=== PATIENT | male | born 1935 | race Caucasian/White ===

== ENCOUNTER 2017-11-28 14:42 | Inpatient (IN) | payer MEDICARE, MEDICAID ==
[2017-11-28] MEDS ORDERED: DILTIAZEM HCL/D5W 125 MG/125 ML RTUINJ IV PRN (14:51)
[2017-11-28] MEDS ORDERED: ASPIRIN 325 MG TABLET PO ONE (14:52)
[2017-11-28] MEDS ORDERED: DILTIAZEM HCL INJ 25 MG/5 ML VIAL IV ONE (15:02)
[2017-11-28 15:12] LABS: ABSOLUTE BASOPHILS # (AUTO) 0.1 10^3/uL (0.0-0.2); ABSOLUTE EOSINOPHILS # (AUTO) 0.3 10^3/uL (0.0-0.6); ABSOLUTE LYMPHOCYTES (AUTO) 2.3 10^3/uL (0.5-4.7); ABSOLUTE MONOCYTES (AUTO) 1.1 10^3/uL (0.1-1.4); ABSOLUTE NEUT (AUTO) 5.8 10^3/uL (1.7-8.2); BASOPHILS % (AUTO) 0.7 % (0-2); EOSINOPHILS % (AUTO) 3.2 % (0-6); HEMOGLOBIN 15.5 g/dL (13.5-17.0); MEAN CORPUSCULAR HEMOGLOBIN 32.8 pg (27.0-33.4); MEAN CORPUSCULAR HGB CONC 33.7 g/dL (32.0-36.0); MEAN CORPUSCULAR VOLUME 97 fl (80-97); MONOCYTES % (AUTO) 11.7 % (3-13); PLATELET COUNT 237 10^3/uL (150-450); RED BLOOD COUNT 4.72 10^6/uL (4.35-5.55); RED CELL DISTRIBUTION WIDTH 13.6 % (11.5-14.0); SEGMENTED NEUTROPHILS % (AUTO) 60.4 % (42-78); TOTAL CELLS COUNTED % (AUTO) 100 %; WHITE BLOOD COUNT 9.7 10^3/uL (4.0-10.5)
[2017-11-28 15:28] LABS: ALANINE AMINOTRANSFERASE 46 U/L (21-72); ALBUMIN 4.3 g/dL (3.5-5.0); ALKALINE PHOSPHATASE 72 U/L (38-126); ANION GAP 13 (5-19); ASPARTATE AMINO TRANSFERASE 42 U/L (17-59); BILIRUBIN,DIRECT 0.2 mg/dL (0.0-0.4); BILIRUBIN,TOTAL 0.3 mg/dL (0.2-1.3); BLOOD UREA NITROGEN 27 mg/dL (7-20); CALCIUM 9.4 mg/dL (8.4-10.2); CARBON DIOXIDE 29 mmol/L (22-30); CHLORIDE 103 mmol/L (98-107); CREATINE KINASE 147 U/L (55-170); GLUCOSE 155 mg/dL (75-110); LIPASE 105.9 U/L (23-300); POTASSIUM 4.7 mmol/L (3.6-5.0); SODIUM 144.6 mmol/L (137-145); TOTAL PROTEIN 6.9 g/dL (6.3-8.2)
[2017-11-28 15:44] LABS: CREATINE KINASE MB 3.01 ng/mL (<4.55); TROPONIN I 0.024 ng/mL
--- NOTE | 2017-11-28 15:48 | RADIOLOGY REPORT (SQ) ---
EXAM DESCRIPTION: CHEST SINGLE VIEW COMPLETED DATE/TIME: 11/28/2017 3:38 pm REASON FOR STUDY: cp COMPARISON: Chest film 11/17/2006 EXAM PARAMETERS: NUMBER OF VIEWS: One view. TECHNIQUE: Single frontal radiographic view of the chest acquired. RADIATION DOSE: NA LIMITATIONS: None. FINDINGS: LUNGS AND PLEURA: No opacities, masses or pneumothorax. No pleural effusion. MEDIASTINUM AND HILAR STRUCTURES: No masses. Contour normal. HEART AND VASCULAR STRUCTURES: Heart normal in size. Normal vasculature. BONES: No acute findings. HARDWARE: None in the chest. OTHER: No other significant finding. IMPRESSION: NO ACUTE RADIOGRAPHIC FINDING IN THE CHEST. TECHNICAL DOCUMENTATION: JOB ID: [id number] [employer]- All Rights Reserved Reading location - IP/workstation name: [email or web address]
[2017-11-28 16:20] LABS: PARTIAL THROMBOPLASTIN TIME 33.6 SEC (23.5-35.8); PROTHROMBIN TIME 12.6 SEC (11.4-15.4)
[2017-11-28] MEDS ORDERED: MAG HYDROX/AL HYDROX/SIMETH SUSP 30 ML UDCUP PO PRN (17:09)
[2017-11-28] MEDS ORDERED: METOPROLOL TARTRATE PF/INJ 5 MG/5 ML SDV IV PRN (17:09)
--- NOTE | 2017-11-28 17:57 | EKG REPORT ---
SEVERITY:- ABNORMAL ECG - ATRIAL FIBRILLATION WITH RVR PROBABLE INFERIOR INFARCT, AGE INDETERMINATE BORDERLINE PROLONGED QT INTERVAL : Confirmed by: Kevin Doherty MD 28-Nov-2017 17:56:42
--- NOTE | 2017-11-28 18:23 | PDOC H&P ---
History of Present Illness Admission Date/PCP: 11/28/17 17:51 ENMANUEL HYLTON Patient complains of: Palpitations History of Present Illness: PREETI MELENDREZ is a 82 year old male with an unclear past medical history including coronary artery disease with 3 stents, BPH, hypertension, dyslipidemia , diabetes and poor historian. Patient presents after feeling generally unwell with palpitations 2 hours prior to presentation while shopping at [employer]. His heart rate was found to be in the 150s and referred to the emergency room for evaluation. Patient denies shortness of breath, chest pain, nausea or vomiting. He admits previous episode approximately 4 months ago where he was transferred to [facility], and discharged with diagnosis unknown to the patient. His new medication included aspirin. Patient denies recent change in medications, running out or missing dose he denies excessive alcohol or caffeine, he denies heat or cold intolerance but complains of poor sleep and persistent fatigu. In the emergency room he is found to be in A. fib with RVR in the 130s, started on lactated Ringer's, IV diltiazem and referred to the hospitalist for admission. Past Medical History Cardiac Medical History: Reports: Atrial Fibrillation, Congestive Heart Failure , Hypertension Endocrine Medical History: Reports: Diabetes Mellitus Type 2 Psychiatric Medical History: Denies: Dementia, Substance Abuse, Tobacco Dependency Hematology: Denies: None Infectious Medical History: Denies: None Past Surgical History Past Surgical History: Reports: Cardiac Catheterization, Coronary Stent Social History Information Source: Patient Lives with: Alone Smoking Status: Former Smoker Frequency of Alcohol Use: None Drugs: None - Advance Directive Resuscitation Status: Full Code Family History Family History: None Parental Family History Reviewed: Yes Children Family History Reviewed: Yes Sibling(s) Family History Reviewed.: Yes Medication/Allergy Home Medications: Amlodipine Besylate [Amlodipine Besylate] 1 tab PO BID 11/28/17 Carvedilol [Carvedilol] 1 tab PO BID 11/28/17 Clopidogrel Bisulfate [Clopidogrel] 1 tab PO DAILY 11/28/17 Furosemide [Lasix 40 mg Tablet] 80 mg PO DAILY 11/28/17 Insulin Aspart [Novolog Flexpen] 15 - 27 units SQ ACHS 11/28/17 Insulin Detemir [Levemir Flextouch] 55 - 58 units SQ ASDIR 11/28/17 Linagliptin [Tradjenta] 5 mg PO DAILY 11/28/17 Lisinopril [Lisinopril] 1 tab PO BID 11/28/17 Omeprazole [Omeprazole] 1 cap PO DAILY 11/28/17 Rosuvastatin Calcium 10 mg PO DAILY 11/28/17 Allergies/Adverse Reactions: amoxicillin Allergy (Verified 11/28/17 16:48) divalproex sodium [From Depakote] Allergy (Verified 11/28/17 16:48) levofloxacin [From Levaquin] Allergy (Verified 11/28/17 16:48) Review of Systems Constitutional: PRESENT: fatigue. ABSENT: chills, fever(s), headache(s), weight gain, weight loss Eyes: ABSENT: visual disturbances Ears: ABSENT: hearing changes Cardiovascular: ABSENT: chest pain, dyspnea on exertion, edema, orthropnea, palpitations Respiratory: ABSENT: cough, hemoptysis Gastrointestinal: ABSENT: abdominal pain, constipation, diarrhea, hematemesis, hematochezia, nausea, vomiting Genitourinary: ABSENT: dysuria, hematuria Musculoskeletal: ABSENT: joint swelling Integumentary: ABSENT: rash, wounds Neurological: PRESENT: memory loss. ABSENT: abnormal gait, abnormal speech, confusion, dizziness, focal weakness, syncope Psychiatric: ABSENT: anxiety, depression, homidical ideation, suicidal ideation Endocrine: ABSENT: cold intolerance, heat intolerance, polydipsia, polyuria Hematologic/Lymphatic: ABSENT: easy bleeding, easy bruising Physical Exam Vital Signs: Temp Pulse Resp BP Pulse Ox 98.4 F 12 121/57 L 95 11/28/17 14:48 11/28/17 18:06 11/28/17 18:06 11/28/17 18:06 General appearance: PRESENT: no acute distress, well-developed, well-nourished Head exam: PRESENT: atraumatic, normocephalic Eye exam: PRESENT: conjunctiva pink, EOMI, PERRLA. ABSENT: scleral icterus Ear exam: PRESENT: normal external ear exam Mouth exam: PRESENT: moist, tongue midline Neck exam: ABSENT: carotid bruit, JVD, lymphadenopathy, thyromegaly Respiratory exam: PRESENT: clear to auscultation racheal. ABSENT: rales, rhonchi, wheezes Cardiovascular exam: PRESENT: RRR. ABSENT: diastolic murmur, rubs, systolic murmur Pulses: PRESENT: normal dorsalis pedis pul Vascular exam: PRESENT: normal capillary refill GI/Abdominal exam: PRESENT: normal bowel sounds, soft. ABSENT: distended, guarding, mass, organolmegaly, rebound, tenderness Rectal exam: PRESENT: deferred Extremities exam: PRESENT: full ROM. ABSENT: calf tenderness, clubbing, pedal edema Neurological exam: PRESENT: alert, awake, oriented to person, oriented to place , oriented to time, oriented to situation, CN II-XII grossly intact. ABSENT: motor sensory deficit Psychiatric exam: PRESENT: appropriate affect, normal mood. ABSENT: homicidal ideation, suicidal ideation Skin exam: PRESENT: dry, intact, warm. ABSENT: cyanosis, rash Results Impressions: Chest X-Ray 11/28/17 14:47 IMPRESSION: NO ACUTE RADIOGRAPHIC FINDING IN THE CHEST. Assessment & Plan - Diagnosis (1) A-fib Is this a current diagnosis for this admission?: Yes Plan: Unclear cause given recent workup will obtain records from [facility]. Follow-up TSH and cardiac enzymes, continue IV diltiazem transition to p.o. carvedilol. 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 (2) Fatigue Is this a current diagnosis for this admission?: Yes Plan: Evaluate TSH. (3) Morbid obesity with BMI of 40.0-44.9, adult Is this a current diagnosis for this admission?: Yes Plan: Morbid obesity will evaluate for metabolic cause with evaluation of thyroid function and dietitian consultation (4) Diabetes Is this a current diagnosis for this admission?: Yes Plan: Evaluate home regiment with Humalog sliding scale, - Time Time Spent: 30 to 50 Minutes - Inpatient Certification Medical Necessity: Need Close Monitoring Due to Risk of Patient Decompensation
[2017-11-28] MEDS ORDERED: DEXTROSE 50%-WATER 25 GM/50 ML DISP.SYRIN IV PRN ×2 (18:29)
[2017-11-28] MEDS ORDERED: DEXTROSE 40% GEL 15 GM TUBE PO PRN ×2 (18:29)
[2017-11-28] MEDS ORDERED: GLUCAGON,HUMAN RECOMB 1 MG INJ IM PRN (18:29)
[2017-11-28 18:37] LABS: CREATINE KINASE MB 2.85 ng/mL (<4.55)
[2017-11-28 18:45] LABS: TROPONIN I 0.035 ng/mL
[2017-11-28] MEDS: DOCUSATE SODIUM 100 MG CAPSULE PO SCH (19:04)
[2017-11-28] MEDS: CARVEDILOL 12.5 MG TABLET PO SCH (19:04)
[2017-11-28] MEDS: INSULIN LISPRO 100 UNIT/ML 3 ML VIAL SUBCUT PRN ×2 (19:04→22:24)
--- NOTE | 2017-11-28 19:26 | ER Document Report ---
ED General - General Chief Complaint: Arrhythmia Stated Complaint: RAPID HEART RATE Time Seen by Provider: 11/28/17 14:51 TRAVEL OUTSIDE OF THE [place] IN LAST 30 DAYS: No - HPI Patient complains to provider of: Palpitations dizziness Notes: Patient coming in for palpitation dizziness according EMS patient was woke her story started feeling dizzy upon their evaluation patient had a heart rate of 170. Patient was given adenosine 6 and 12 with no change in been started on Cardizem patient was given 20 mg of Cardizem which slowed his rate down travel he was showing irregular rhythm consistent with A. fib. Patient states he has a history of having a elevated heart rate in the past and states that last few times this happened he was given medication by EMS at work and never stayed in the hospital no changes have been diagnosed with atrial fibrillation. Patient does have a history of hypertension diabetes CHF. Denies any recent travel trauma denies any chest pain hip pain abdominal pain nausea vomiting diarrhea. Patient resting comfortably upon my evaluation placed on monitor which shows a heart rate of 130 A. fib RVR - Related Data Allergies/Adverse Reactions: amoxicillin Allergy (Verified 11/28/17 16:48) divalproex sodium [From Depakote] Allergy (Verified 11/28/17 16:48) levofloxacin [From Levaquin] Allergy (Verified 11/28/17 16:48) Past Medical History - Social History Smoking Status: Former Smoker Chew tobacco use (# tins/day): No Frequency of alcohol use: None Drug Abuse: None Lives with: Alone Family History: None Patient has suicidal ideation: No Patient has homicidal ideation: No - Past Medical History Cardiac Medical History: Reports: Hx Atrial Fibrillation, Hx Congestive Heart Failure, Hx Hypertension Endocrine Medical History: Reports: Hx Diabetes Mellitus Type 2 Renal/ Medical History: Denies: Hx Peritoneal Dialysis Psychiatric Medical History: Denies: Hx Dementia Infectious Medical History: Denies: None Past Surgical History: Reports: Hx Cardiac Catheterization, Hx Coronary Stent Review of Systems - Review of Systems Constitutional: No symptoms reported EENT: No symptoms reported Cardiovascular: Palpitations, Other - Dizziness Respiratory: No symptoms reported Gastrointestinal: No symptoms reported Genitourinary: No symptoms reported Male Genitourinary: No symptoms reported Musculoskeletal: No symptoms reported Skin: No symptoms reported Hematologic/Lymphatic: No symptoms reported Neurological/Psychological: No symptoms reported -: Yes All other systems reviewed and negative Physical Exam - Vital signs Vitals: Temp Pulse Ox 98.4 F 95 11/28/17 14:48 11/28/17 14:48 Interpretation: Normal - General General appearance: Appears well, Alert - HEENT Head: Normocephalic, Atraumatic Eyes: Normal Pupils: PERRL - Respiratory Respiratory status: No respiratory distress Chest status: Nontender Breath sounds: Normal Chest palpation: Normal - Cardiovascular Rhythm: Irregularly irregular, Tachycardia Heart sounds: Normal auscultation Murmur: No - Abdominal Inspection: Normal Distension: No distension Bowel sounds: Normal Tenderness: Nontender Organomegaly: No organomegaly - Back Back: Normal, Nontender - Extremities General upper extremity: Normal inspection, Nontender, Normal color, Normal ROM , Normal temperature General lower extremity: Normal inspection, Nontender, Normal color, Normal ROM , Normal temperature, Normal weight bearing. No: Graciela's sign - Neurological Neuro grossly intact: Yes Cognition: Normal Orientation: AAOx4 [place] Coma Scale Eye Opening: Spontaneous [place] Coma Scale Verbal: Oriented [place] Coma Scale Motor: Obeys Commands [place] Coma Scale Total: 15 Speech: Normal Motor strength normal: LUE, RUE, LLE, RLE Sensory: Normal - Psychological Associated symptoms: Normal affect, Normal mood - Skin Skin Temperature: Warm Skin Moisture: Dry Skin Color: Normal Course - Re-evaluation Re-evalutation: 11/28/17 22:05 Patient coming in for evaluation of palpitations found to be in A. fib with RVR. Patient was started on Cardizem drip and bolus given Cardizem laboratory findings were insignificant. Patient was discussed with the hospital service and will be admitted for further evaluation. - Vital Signs Vital signs: Temp Pulse Resp BP Pulse Ox 98.1 F 71 18 142/66 H 96 11/28/17 20:06 11/28/17 20:06 11/28/17 20:06 11/28/17 20:06 11/28/17 20:06 - Laboratory Result Diagrams: 11/28/17 14:52 11/28/17 14:52 Laboratory results interpreted by me: 11/28/17 14:52 BUN 27 H Creatinine 1.46 H Est GFR ( Amer) 56 L Est GFR (Non-Af Amer) 46 L Glucose 155 H Critical Care Note - Critical Care Note Total time excluding time spent on procedures (mins): 35 Comments: Multiple evaluation patient on Cardizem drip A. fib RVR Discharge - Discharge Clinical Impression: Morbid obesity with BMI of 40.0-44.9, adult A-fib Qualifiers: Atrial fibrillation type: unspecified Qualified Code(s): I48.91 - Unspecified atrial fibrillation Diabetes Qualifiers: Diabetes mellitus type: other specified (including ELLIOTT) Diabetes mellitus senior living insulin use: with senior living use Diabetes mellitus complication status : without complication Qualified Code(s): E13.9 - Other specified diabetes mellitus without complications Condition: Good Disposition: ADMITTED INPATIENT [facility] Admitted: [facility]
[2017-11-29] LABS: CREATINE KINASE MB 2.3 ng/mL (<4.55); TROPONIN I 0.043 ng/mL
[2017-11-29 05:50] LABS: ABSOLUTE BASOPHILS # (AUTO) 0.1 10^3/uL (0.0-0.2); ABSOLUTE EOSINOPHILS # (AUTO) 0.2 10^3/uL (0.0-0.6); ABSOLUTE LYMPHOCYTES (AUTO) 2.7 10^3/uL (0.5-4.7); ABSOLUTE MONOCYTES (AUTO) 1.2 10^3/uL (0.1-1.4); ABSOLUTE NEUT (AUTO) 5.9 10^3/uL (1.7-8.2); BASOPHILS % (AUTO) 0.9 % (0-2); HEMATOCRIT 41.1 % (37.9-51.0); HEMOGLOBIN 14.1 g/dL (13.5-17.0); LYMPHOCYTES % (AUTO) 26.8 % (13-45); MEAN CORPUSCULAR HEMOGLOBIN 33.4 pg (27.0-33.4); MEAN CORPUSCULAR HGB CONC 34.3 g/dL (32.0-36.0); MEAN CORPUSCULAR VOLUME 97 fl (80-97); MONOCYTES % (AUTO) 11.5 % (3-13); PLATELET COUNT 196 10^3/uL (150-450); RED BLOOD COUNT 4.22 10^6/uL (4.35-5.55); SEGMENTED NEUTROPHILS % (AUTO) 58.8 % (42-78); TOTAL CELLS COUNTED % (AUTO) 100 %; WHITE BLOOD COUNT 10.1 10^3/uL (4.0-10.5)
[2017-11-29] MEDS: CARVEDILOL 12.5 MG TABLET PO SCH ×2 (06:02→19:26)
[2017-11-29 06:22] LABS: ANION GAP 9 (5-19); BLOOD UREA NITROGEN 27 mg/dL (7-20); CALCIUM 9.1 mg/dL (8.4-10.2); CARBON DIOXIDE 28 mmol/L (22-30); CHLORIDE 103 mmol/L (98-107); CHOLESTEROL 152.92 mg/dL (0-200); CREATINE KINASE 113 U/L (55-170); GLUCOSE 227 mg/dL (75-110); POTASSIUM 4.7 mmol/L (3.6-5.0); SODIUM 140.2 mmol/L (137-145); TRIGLYCERIDES 226 mg/dL (<150)
[2017-11-29 06:25] LABS: CREATINE KINASE MB 2.47 ng/mL (<4.55)
[2017-11-29 06:32] LABS: DIRECT LDL 75 mg/dL (<100)
[2017-11-29 06:37] LABS: VLDL CHOLESTEROL 45.2 mg/dL (10-31)
[2017-11-29 06:41] LABS: TROPONIN I 0.047 ng/mL
[2017-11-29] MEDS: INSULIN LISPRO 100 UNIT/ML 3 ML VIAL SUBCUT PRN ×4 (07:54→22:50)
--- NOTE | 2017-11-29 09:27 | PDOC CONSULTATION ---
Consultation Consult Date: 11/28/17 Attending physician:: ROMULO GUIDO Consult reason:: a fib History of Present Illness Admission Date/PCP: 11/28/17 17:51 ENMANUEL HYLTON Patient complains of: Palpitations and shortness of breath History of Present Illness: PREETI MELENDREZ is a 82 year old male with an unclear past medical history including coronary artery disease with 3 stents, BPH, hypertension, dyslipidemia , diabetes and poor historian. Patient presents after feeling generally unwell with palpitations 2 hours prior to presentation while shopping at [employer]. His heart rate was found to be in the 150s and referred to the emergency room for evaluation. Patient denies shortness of breath, chest pain, nausea or vomiting. He admits previous episode approximately 4 months ago where he was transferred to [facility], and discharged with diagnosis unknown to the patient. His new medication included aspirin. Patient denies recent change in medications, running out or missing dose he denies excessive alcohol or caffeine, he denies heat or cold intolerance but complains of poor sleep and persistent fatigu. In the emergency room he is found to be in A. fib with RVR in the 130s, started on lactated Ringer's, IV diltiazem and referred to the hospitalist for admission. This history was reviewed, supplemented and confirmed. Patient claims to be on aspirin and Plavix therapy along with other therapy. Patient denied any prior history of strokes or mini strokes. When I saw the patient at around 8:30 PM, patient was noted to be back in sinus rhythm and feeling much improved. Patient last coronary stent placement was approximately 9 years ago. Past Medical History Cardiac Medical History: Reports: Atrial Fibrillation, Congestive Heart Failure , Coronary Artery Disease, Hypertension Endocrine Medical History: Reports: Diabetes Mellitus Type 2 Psychiatric Medical History: Denies: Dementia, Substance Abuse, Tobacco Dependency Hematology: Denies: None Infectious Medical History: Denies: None Past Surgical History Past Surgical History: Reports: Cardiac Catheterization, Coronary Stent Social History Information Source: Patient Lives with: Alone Smoking Status: Former Smoker Frequency of Alcohol Use: None Drugs: None - Advance Directive Resuscitation Status: Full Code Surrogate healthcare decision maker:: Patient ex- and daughter at the surrogate decision-maker Family History Family History: Hypertension Parental Family History Reviewed: Yes Children Family History Reviewed: Yes Sibling(s) Family History Reviewed.: Yes Medication/Allergy Home Medications: Amlodipine Besylate [Amlodipine Besylate] 5 mg PO Q12 11/28/17 Carvedilol [Carvedilol] 12.5 mg PO BIDBS 11/28/17 Clopidogrel Bisulfate [Clopidogrel] 75 mg PO DAILY 11/28/17 Furosemide [Lasix 80 mg Tablet] 80 mg PO QAM 11/28/17 Insulin Aspart [Novolog Flexpen] 0 unit SUBCUT .SLD SCALE PRN MDD SEE PATIENT COMMENTS 11/28/17 Insulin Aspart [Novolog Flexpen] 0 units SQ MEALS PRN MDD SEE PATIENT COMMENTS 11/28/17 Insulin Aspart [Novolog Flexpen] 15 unit SQ HSP PRN MDD SEE PATIENT COMMENTS 06/07 Insulin Detemir [Levemir Flextouch] 55 unit SQ QAM 11/28/17 Insulin Detemir [Levemir Flextouch] 58 units SQ QPM 11/28/17 Linagliptin [Tradjenta] 5 mg PO DAILY 11/28/17 Lisinopril [Lisinopril] 40 mg PO Q12 11/28/17 Multivitamin [Tab-A-Julieta (Multiple Vitamin) Tablet] 1 tab PO DAILY 11/28/17 Omeprazole [Omeprazole] 40 mg PO DAILY 11/28/17 Rosuvastatin Calcium 10 mg PO DAILY 11/28/17 Allergies/Adverse Reactions: amoxicillin Allergy (Verified 11/28/17 16:48) divalproex sodium [From Depakote] Allergy (Verified 11/28/17 16:48) levofloxacin [From Levaquin] Allergy (Verified 11/28/17 16:48) Review of Systems Review of Systems: Please see history of present illness and past medical history as wall. Constitutional: No fever or chills reported. Head : No recent chronic headaches, recent head injury. Eyes: No recent eye pain, diplopia, redness, discharge, acute visual changes. Ears: No recent chronic ear pain, acute hearing loss, ear discharge. Oral cavity: No recent ulcerations, bleeding, oral cavity discomfort. Neck: No recent acute neck pain reported. Hematologic: No recent easy bruising or bleeding or hematologic malignancy reported. Lymphatic: No recent lymphatic malignancy, chronic lymphadenopathy reported yet Cardiovascular system review: See history of present illness. Respiratory system review: No recent chronic cough, hemoptysis, blood clots in the lungs reported.Shortness of breath on exertion Gastrointestinal system review: Negative for any recent acute or chronic abdominal pain, hematemesis, melena, recent change in bowel habits. Genitourinary system review: No recent acute or chronic hematuria, flank pain, UTI etc. reported. Skin system review: Negative for any recent abnormal bruising, no rash, no pruritus reported. Neurologic: No prior history of strokes, mini strokes, seizure disorder. Psychologic: No history of major psychosis or major depression reported. Musculoskeletal: Minor aches and pains reported. No acute joint swelling reported. Endocrine: No recent polyuria, polydipsia, recent heat or cold intolerance. Physical Exam Vital Signs: Temp Pulse Resp BP Pulse Ox 98.4 F 17 122/68 94 11/28/17 14:48 11/28/17 19:11 11/28/17 19:11 11/28/17 19:11 Exam: GENERAL: well-nourished and in no acute distress. Alert and oriented x3 HEAD: Atraumatic, normocephalic. EYES: Pupils equal round and reactive to light, extraocular movements intact, sclera anicteric, conjunctiva are normal. ENT: TMs normal, nares patent, oropharynx clear without exudates. Moist mucous membranes. No oral ulcerations or bleeding gums noted NECK: supple without lymphadenopathy. Trachea is central. No cervical or axillary lymphadenopathy noted. Carotids are 2+, JVD WNL LUNGS: Respiration seems nonlabored, no significant accessory muscle action noted. Breath sounds clear to auscultation bilaterally and equal noted. No wheezes rales or rhonchi noted. No significant dullness noted on percussion. CHEST: Palpation of the chest wall shows no significant chest wall tenderness. No other significant abnormalities noted. 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 ABDOMEN: Soft, no significant tenderness appreciated, normoactive bowel sounds. No guarding, no rebound. No rigidity noted . No masses appreciated. EXTREMITIES: Pedal pulses are 1-2+, no calf tenderness noted. No clubbing or cyanosis. 1+ pedal edema noted NEUROLOGICAL: Focused neurological exam showed no significant neurologic deficit. Normal speech, no focal weakness appreciated. PSYCH: Normal mood, normal affect. Judgment and insight within normal limits. SKIN: No significant ecchymosis, skin is noted to be warm. MUSCULOSKELETAL EXAM: No significant acute joint swelling noted. Results EKG Comments: Admission twelve-lead EKG shows atrial fibrillation with rapid ventricular response. No acute ST-T wave changes are noted. Impressions: Chest X-Ray 11/28/17 14:47 IMPRESSION: NO ACUTE RADIOGRAPHIC FINDING IN THE CHEST. Assessment & Plan - Diagnosis (1) A-fib Qualifiers: Atrial fibrillation type: paroxysmal Qualified Code(s): I48.0 - Paroxysmal atrial fibrillation Is this a current diagnosis for this admission?: Yes (2) Diabetes Qualifiers: Diabetes mellitus type: other specified (including ELLIOTT) Diabetes mellitus mcfp insulin use: with medical terminologist use Diabetes mellitus complication status: without complication Qualified Code(s): E13.9 - Other specified diabetes mellitus without complications; Z79.4 - lobsterman (current) use of insulin; Z79.4 - lobsterman (current) use of insulin; Z79.4 - lobsterman (current ) use of insulin; Z79.4 - care home (current) use of insulin Is this a current diagnosis for this admission?: Yes (3) Fatigue Qualifiers: Fatigue type: chronic, unspecified Qualified Code(s): R53.82 - Chronic fatigue, unspecified Is this a current diagnosis for this admission?: Yes (4) Morbid obesity with BMI of 40.0-44.9, adult Is this a current diagnosis for this admission?: Yes (5) Hypertension Qualifiers: Hypertension type: essential hypertension Qualified Code(s): I10 - Essential (primary) hypertension Is this a current diagnosis for this admission?: Yes (6) Coronary artery disease Qualifiers: Coronary Disease-Associated Artery/Lesion type: [place] artery [place] vs. transplanted heart: [place] heart Associated angina: angina presence unspecified Qualified Code(s): I25.10 - Atherosclerotic heart disease of [place] coronary artery without angina pectoris Is this a current diagnosis for this admission?: Yes (7) Chronic kidney disease Qualifiers: Chronic kidney disease stage: stage 3 (moderate) Qualified Code(s): N18.3 - Chronic kidney disease, stage 3 (moderate) Is this a current diagnosis for this admission?: Yes - Notes Notes: Paroxysmal atrial fibrillation: Patient has converted spontaneously to sinus rhythm. At this point would recommend rate control and chronic anticoagulation. Will start patient on Eliquis 2.5 mg p.o. twice daily, tomorrow after ensuring that hemoglobin has been stable. Diabetes: Recommend good control of blood sugar but avoid any hypo-or hyperglycemia. Hypertension: Blood pressure goal should be 140/90 or less. Coronary artery disease: Currently stable. Recommend stopping aspirin, starting patient on Eliquis. Continue statin therapy. Continue beta blockers, MARIVEL inhibitor/ARB therapy as needed. Fatigue: Patient may have underlying sleep apnea syndrome would benefit from such an evaluation. Sleep apnea is associated with increased risk of atrial fibrillation as well as increased recurrence rate of atrial fibrillation. Obesity: Patient has been advised to lose weight. Patient will benefit from scheduling a sleep study. Chronic kidney disease: Currently stable. Continue to monitor renal functions. - Time Time Spent: 30 to 50 Minutes - More than 50% of the time spent coordinating care , discussing management plans with involved caregivers. Management plans discussed with involved personnels. Medical decision making was of moderate to high complexity, patient's has multiple comorbidities. Medications reviewed and adjusted accordingly: Yes
[2017-11-29] MEDS: DOCUSATE SODIUM 100 MG CAPSULE PO SCH ×2 (10:13→17:12)
[2017-11-29] MEDS: APIXABAN 2.5 MG TABLET PO SCH ×2 (10:13→17:12)
[2017-11-29] MEDS ORDERED: (PENDING PHARMACY ID) (Lisinopril [Lisinopril] 40 MG) PO SCH (10:30)
[2017-11-29] MEDS ORDERED: FUROSEMIDE 80 MG TABLET PO ONE (11:00)
[2017-11-29] MEDS: DILTIAZEM HCL 180 MG CAPSULE.CR PO SCH (11:06)
[2017-11-29] MEDS ORDERED: INSULIN DETEMIR 100 UNIT/ML 3 ML PEN SUBCUT SCH (18:00)
--- NOTE | 2017-11-29 18:19 | PDOC PROGRESS REPORT ---
Subjective Progress Note for:: 11/29/17 Subjective:: No complaints Review of systems All organ systems evaluated and negative except as in subjective All significant laboratories and diagnostics have been reviewed Reason For Visit: AFIB Physical Exam Vital Signs: Temp Pulse Resp BP Pulse Ox 97.7 F 63 16 136/65 H 97 11/29/17 08:04 11/29/17 08:04 11/29/17 08:04 11/29/17 08:04 11/29/17 08:04 Intake & Output 11/28/17 11/29/17 11/30/17 06:59 06:59 06:59 Intake Total 400 Balance 400 Weight 114.6 kg General appearance: PRESENT: cooperative, morbidly obese Head exam: PRESENT: atraumatic, normocephalic Eye exam: PRESENT: conjunctiva pink, EOMI, PERRLA Ear exam: PRESENT: normal external ear exam Mouth exam: PRESENT: moist Neck exam: PRESENT: full ROM. ABSENT: JVD, lymphadenopathy, tenderness Respiratory exam: PRESENT: clear to auscultation racheal Cardiovascular exam: PRESENT: RRR. ABSENT: diastolic murmur, systolic murmur Vascular exam: PRESENT: normal capillary refill GI/Abdominal exam: PRESENT: normal bowel sounds, soft. ABSENT: tenderness Extremities exam: PRESENT: full ROM, pedal edema, +1 edema Musculoskeletal exam: PRESENT: ambulatory Neurological exam: PRESENT: alert, awake, oriented to person, oriented to place , oriented to time, oriented to situation, CN II-XII grossly intact Psychiatric exam: PRESENT: appropriate affect, normal mood Skin exam: PRESENT: erythema, normal color Results Laboratory Results: 11/29/17 05:23 11/29/17 05:23 11/29/17 11/29/17 05:23 05:23 WBC 10.1 RBC 4.22 L Hgb 14.1 Hct 41.1 MCV 97 MCH 33.4 MCHC 34.3 RDW 14.0 Plt Count 196 Seg Neutrophils % 58.8 Lymphocytes % 26.8 Monocytes % 11.5 Eosinophils % 2.0 Basophils % 0.9 Absolute Neutrophils 5.9 Absolute Lymphocytes 2.7 Absolute Monocytes 1.2 Absolute Eosinophils 0.2 Absolute Basophils 0.1 Sodium 140.2 Potassium 4.7 Chloride 103 Carbon Dioxide 28 Anion Gap 9 BUN 27 H Creatinine 1.53 H Est GFR ( Amer) 53 L Est GFR (Non-Af Amer) 44 L Glucose 227 H Calcium 9.1 Triglycerides 226 H Cholesterol 152.92 LDL Cholesterol Direct 75 VLDL Cholesterol 45.2 H HDL Cholesterol 26 L 11/28/17 11/29/17 11/29/17 23:26 05:23 05:23 Creatine Kinase 113 CK-MB (CK-2) 2.30 2.47 Troponin I 0.043 0.047 Impressions: Chest X-Ray 11/28/17 14:47 IMPRESSION: NO ACUTE RADIOGRAPHIC FINDING IN THE CHEST. Assessment & Plan - Diagnosis (1) A-fib Qualifiers: Atrial fibrillation type: paroxysmal Qualified Code(s): I48.0 - Paroxysmal atrial fibrillation Is this a current diagnosis for this admission?: Yes Plan: To start Cardizem and continue Eliquis as per cardiology advice since agree. Discontinue Plavix (2) Chronic kidney disease Qualifiers: Chronic kidney disease stage: stage 3 (moderate) Qualified Code(s): N18.3 - Chronic kidney disease, stage 3 (moderate) Is this a current diagnosis for this admission?: Yes Plan: Stable (3) Coronary artery disease Qualifiers: Coronary Disease-Associated Artery/Lesion type: [place] artery [place] vs. transplanted heart: [place] heart Associated angina: angina presence unspecified Qualified Code(s): I25.10 - Atherosclerotic heart disease of [place] coronary artery without angina pectoris Is this a current diagnosis for this admission?: Yes Plan: Lifestyle modifications but stable (4) Diabetes Qualifiers: Diabetes mellitus type: other specified (including ELLIOTT) Diabetes mellitus rodent exterminator insulin use: with rodent exterminator use Diabetes mellitus complication status: without complication Qualified Code(s): E13.9 - Other specified diabetes mellitus without complications; Z79.4 - prison (current) use of insulin; Z79.4 - buttermaker helper (current) use of insulin; Z79.4 - prison (current ) use of insulin; Z79.4 - prison (current) use of insulin Is this a current diagnosis for this admission?: Yes Plan: Continue present management (5) Hypertension Qualifiers: Hypertension type: essential hypertension Qualified Code(s): I10 - Essential (primary) hypertension Is this a current diagnosis for this admission?: Yes Plan: Cut down lisinopril to 40 mg p.o. daily continue Coreg as outpatient and to add Cardizem CD (6) Morbid obesity with BMI of 40.0-44.9, adult Is this a current diagnosis for this admission?: Yes Plan: Lifestyle modifications - Time Time Spent with patient: Less than 15 minutes Medications reviewed and adjusted accordingly: Yes Anticipated discharge: Home Within: within 24 hours - Inpatient Certification Based on my medical assessment, after consideration of the patient's comorbidities, presenting symptoms, or acuity I expect that the services needed warrant INPATIENT care.: Yes I certify that my determination is in accordance with my understanding of Medicare's requirements for reasonable and necessary INPATIENT services [42 CFR 412.3e].: Yes Medical Necessity: Need Close Monitoring Due to Risk of Patient Decompensation
--- NOTE | 2017-11-29 18:50 | XCELERA REPORT ---
[address] [address] Transthoracic Echocardiogram Report Name: PREETI MELENDREZ Age: 82 yrs Gender: Male : 1935 Patient Status: Inpatient Patient Location: [address] [place] [address] Study Date: 11/29/2017 09:30 AM Height: 68 in Weight: 259 lb BSA: 2.3 m2 Procedure: A complete two-dimensional transthoracic echocardiogram was performed (2D, M-mode, spectral and color flow Doppler). The study was technically difficult with many images being suboptimal in quality. Reason For Study: LV Function, size, wall thickness,Valve Function Ordering Physician: ROMULO GUIDO Performed By: Lux Cheung Interpretation Summary The study was technically difficult with many images being suboptimal in quality. The left ventricular ejection fraction is normal. Doppler measurements suggest pseudonormalized left ventricular relaxation, which is associated with grade II/IV or mild to moderate diastolic dysfunction There is mild concentric left ventricular hypertrophy. The left ventricle is grossly normal size. Wall motion cannot be accurately commented on, but no definite regional wall motion abnormalities noted. The right ventricular systolic function is normal. The left atrium is mildly dilated. The right atrium is normal in size There is a trace amount of mitral regurgitation There is no mitral valve stenosis. No aortic regurgitation is present. There is no aortic valve stenosis There is no tricuspid stenosis. No tricuspid regurgitation. The aortic root is not well visualized but is probably normal size. The inferior vena cava was not well visualized There is no pericardial effusion. MMode/2D Measurements & Calculations RVDd: 2.7 cm LVIDd: 4.8 cm FS: 51.3 % Ao root diam: 2.8 cm IVSd: 1.0 cm LVIDs: 2.3 cm EDV(Teich): 105.3 ml LVPWd: 1.0 cm ESV(Teich): 18.5 ml Ao root area: 6.3 cm2 EF(Teich): 82.5 % LA dimension: 3.6 cm Doppler Measurements & Calculations MV E max samantha: MV P1/2t max samantha: Ao V2 max: LV V1 max P.4 cm/sec 126.4 cm/sec 174.8 cm/sec 4.5 mmHg MV A max samantha: MV P1/2t: 85.9 msec Ao max PG: LV V1 max: 108.1 cm/sec 12.2 mmHg 106.1 cm/sec MV E/A: 1.2 MVA(P1/2t): 2.6 cm2 MV dec slope: 430.8 cm/sec2 PA V2 max: 92.3 cm/sec PA max P.4 mmHg Left Ventricle The left ventricle is grossly normal size. There is mild concentric left ventricular hypertrophy. The left ventricular ejection fraction is normal. Doppler measurements suggest pseudonormalized left ventricular relaxation, which is associated with grade II/IV or mild to moderate diastolic dysfunction. Wall motion cannot be accurately commented on, but no definite regional wall motion abnormalities noted. Right Ventricle The right ventricle is grossly normal size. There is normal right ventricular wall thickness. The right ventricular systolic function is normal. Atria The right atrium is normal in size. The left atrium is mildly dilated. Interarterial septum not well visualized and not well dopplered. Cannot comment on ASD/PFO presence. Mitral Valve The mitral valve is grossly normal. There is no mitral valve stenosis. There is a trace amount of mitral regurgitation. Aortic Valve The aortic valve is not well visualized secondary to technical limitations. There is no aortic valve stenosis. No aortic regurgitation is present. Tricuspid Valve The tricuspid valve is not well visualized, but is grossly normal. There is no tricuspid stenosis. No tricuspid regurgitation. Pulmonic Valve The pulmonic valve is not well visualized. Great Vessels The aortic root is not well visualized but is probably normal size. The inferior vena cava was not well visualized. Effusions There is no pericardial effusion. : ROMULO GUIDO > Temitope Florez
--- NOTE | 2017-11-29 20:13 | PDOC PROGRESS REPORT ---
Subjective Progress Note for:: 11/29/17 Subjective:: Patient seems to be doing better with significant improvement. Pt is denying any chest arm or neck discomfort. Patient denying any PND, orthopnea. Patient denied any sustained palpitations, dizziness, syncope, near syncope. Patient denying any fever chills. Patient denying any other significant discomfort. Patient is maintaining sinus rhythm. No recurrence of atrial fibrillation noted Review of systems: Rest review of systems negative. Medications: Medications have been reviewed. Reason For Visit: AFIB Physical Exam Vital Signs: Temp Pulse Resp BP Pulse Ox 98.0 F 69 17 139/67 H 97 11/29/17 15:19 11/29/17 15:19 11/29/17 15:19 11/29/17 15:19 11/29/17 15:19 Intake & Output 11/28/17 11/29/17 11/30/17 06:59 06:59 06:59 Intake Total 400 1200 Balance 400 1200 Weight 114.6 kg Exam: GENERAL: well-nourished and in no acute distress. Alert and oriented x3 HEAD: Atraumatic, normocephalic. EYES: Pupils equal round and reactive to light, extraocular movements intact, sclera anicteric, conjunctiva are normal. ENT: TMs normal, nares patent, oropharynx clear without exudates. Moist mucous membranes. No oral ulcerations or bleeding gums noted NECK: supple without lymphadenopathy. Trachea is central. No cervical or axillary lymphadenopathy noted. Carotids are 2+, JVD WNL LUNGS: Respiration seems nonlabored, no significant accessory muscle action noted. Breath sounds clear to auscultation bilaterally and equal noted. No wheezes rales or rhonchi noted. No significant dullness noted on percussion. CHEST: Palpation of the chest wall shows no significant chest wall tenderness. No other significant abnormalities noted. HEART: [place] FOREST AIDE, No PSH, 1/6 [place] aortic area, 1/6 richards systolic murmur mitral area, no rubs, no gallops. ABDOMEN: Soft, no significant tenderness appreciated, normoactive bowel sounds. No guarding, no rebound. No rigidity noted . No masses appreciated. EXTREMITIES: Pedal pulses are 1-2+, no calf tenderness noted. No clubbing or cyanosis. 1+ bilateral pedal edema noted NEUROLOGICAL: Focused neurological exam showed no significant neurologic deficit. Normal speech, no focal weakness appreciated. PSYCH: Normal mood, normal affect. Judgment and insight within normal limits. SKIN: No significant ecchymosis, skin is noted to be warm. MUSCULOSKELETAL EXAM: No significant acute joint swelling noted. Results Laboratory Results: 11/29/17 05:23 11/29/17 05:23 11/29/17 11/29/17 05:23 05:23 WBC 10.1 RBC 4.22 L Hgb 14.1 Hct 41.1 MCV 97 MCH 33.4 MCHC 34.3 RDW 14.0 Plt Count 196 Seg Neutrophils % 58.8 Lymphocytes % 26.8 Monocytes % 11.5 Eosinophils % 2.0 Basophils % 0.9 Absolute Neutrophils 5.9 Absolute Lymphocytes 2.7 Absolute Monocytes 1.2 Absolute Eosinophils 0.2 Absolute Basophils 0.1 Sodium 140.2 Potassium 4.7 Chloride 103 Carbon Dioxide 28 Anion Gap 9 BUN 27 H Creatinine 1.53 H Est GFR ( Amer) 53 L Est GFR (Non-Af Amer) 44 L Glucose 227 H Calcium 9.1 Triglycerides 226 H Cholesterol 152.92 LDL Cholesterol Direct 75 VLDL Cholesterol 45.2 H HDL Cholesterol 26 L 11/28/17 11/29/17 11/29/17 23:26 05:23 05:23 Creatine Kinase 113 CK-MB (CK-2) 2.30 2.47 Troponin I 0.043 0.047 EKG Comments: Telemetry strips shows sinus rhythm without any sustained tachycardia or bradycardia. Impressions: Chest X-Ray 11/28/17 14:47 IMPRESSION: NO ACUTE RADIOGRAPHIC FINDING IN THE CHEST. Assessment & Plan - Diagnosis (1) A-fib Qualifiers: Atrial fibrillation type: paroxysmal Qualified Code(s): I48.0 - Paroxysmal atrial fibrillation Is this a current diagnosis for this admission?: Yes (2) Diabetes Qualifiers: Diabetes mellitus type: other specified (including ELLIOTT) Diabetes mellitus terminal operations supervisor insulin use: with terminal operations supervisor use Diabetes mellitus complication status: without complication Qualified Code(s): E13.9 - Other specified diabetes mellitus without complications; Z79.4 - residential (current) use of insulin; Z79.4 - truck terminal manager (current) use of insulin; Z79.4 - residential (current ) use of insulin; Z79.4 - truck terminal manager (current) use of insulin Is this a current diagnosis for this admission?: Yes (3) Fatigue Qualifiers: Fatigue type: chronic, unspecified Qualified Code(s): R53.82 - Chronic fatigue, unspecified Is this a current diagnosis for this admission?: Yes (4) Morbid obesity with BMI of 40.0-44.9, adult Is this a current diagnosis for this admission?: Yes (5) Hypertension Qualifiers: Hypertension type: essential hypertension Qualified Code(s): I10 - Essential (primary) hypertension Is this a current diagnosis for this admission?: Yes (6) Coronary artery disease Qualifiers: Coronary Disease-Associated Artery/Lesion type: [place] artery [place] vs. transplanted heart: [place] heart Associated angina: angina presence unspecified Qualified Code(s): I25.10 - Atherosclerotic heart disease of [place] coronary artery without angina pectoris Is this a current diagnosis for this admission?: Yes (7) Chronic kidney disease Qualifiers: Chronic kidney disease stage: stage 3 (moderate) Qualified Code(s): N18.3 - Chronic kidney disease, stage 3 (moderate) Is this a current diagnosis for this admission?: Yes - Notes Notes: Paroxysmal atrial fibrillation: Patient has converted spontaneously to sinus rhythm. At this point would recommend rate control and chronic anticoagulation. Started patient on Eliquis 2.5 mg p.o. twice daily, hemoglobin was noted to be stable. Diabetes: Recommend good control of blood sugar but avoid any hypo-or hyperglycemia. Hypertension: Blood pressure goal should be 140/90 or less. Coronary artery disease: Currently stable. Recommend stopping aspirin, starting patient on Eliquis. Continue statin therapy. Continue beta blockers, MARIVEL inhibitor/ARB therapy as needed. Patient does give history of stent placement but they were like 9 years ago therefore does not need aspirin or Plavix to be continued. Fatigue: Patient may have underlying sleep apnea syndrome would benefit from such an evaluation. Sleep apnea is associated with increased risk of atrial fibrillation as well as increased recurrence rate of atrial fibrillation. Obesity: Patient has been advised to lose weight. Patient will benefit from scheduling a sleep study. Chronic kidney disease: Currently stable. Continue to monitor renal functions. Troponin I are minimally elevated but are related to supply demand mismatch secondary to atrial fibrillation with rapid ventricular response. - Time Time with patient: Greater than 35 minutes - 2D echocardiogram results were reviewed with the patient. Patient questions were answered. CODE STATUS was discussed, patient remains full code. Surrogate decision-maker Patient ex- and daughter. Multiple medical problems were addressed. More than 50% of the time spent coordinating care, discussing management plans with involved caregivers. Management plans discussed with involved personnels. Medical decision making was of moderate to high complexity, patient's has multiple comorbidities. Medications reviewed and adjusted accordingly: Yes
[2017-11-29] MEDS ORDERED: ATORVASTATIN CALCIUM 20 MG TABLET PO SCH (22:00)
[2017-11-30 05:08] LABS: ABSOLUTE BASOPHILS # (AUTO) 0.1 10^3/uL (0.0-0.2); ABSOLUTE EOSINOPHILS # (AUTO) 0.2 10^3/uL (0.0-0.6); ABSOLUTE LYMPHOCYTES (AUTO) 2.5 10^3/uL (0.5-4.7); ABSOLUTE NEUT (AUTO) 4.9 10^3/uL (1.7-8.2); BASOPHILS % (AUTO) 0.9 % (0-2); EOSINOPHILS % (AUTO) 2.5 % (0-6); HEMATOCRIT 40.2 % (37.9-51.0); HEMOGLOBIN 13.7 g/dL (13.5-17.0); LYMPHOCYTES % (AUTO) 29.2 % (13-45); MEAN CORPUSCULAR HEMOGLOBIN 33.1 pg (27.0-33.4); MEAN CORPUSCULAR HGB CONC 34.1 g/dL (32.0-36.0); MEAN CORPUSCULAR VOLUME 97 fl (80-97); MONOCYTES % (AUTO) 10.9 % (3-13); PLATELET COUNT 200 10^3/uL (150-450); RED BLOOD COUNT 4.14 10^6/uL (4.35-5.55); RED CELL DISTRIBUTION WIDTH 13.5 % (11.5-14.0); SEGMENTED NEUTROPHILS % (AUTO) 56.5 % (42-78); TOTAL CELLS COUNTED % (AUTO) 100 %; WHITE BLOOD COUNT 8.7 10^3/uL (4.0-10.5)
[2017-11-30 05:41] LABS: ANION GAP 13 (5-19); BLOOD UREA NITROGEN 27 mg/dL (7-20); CALCIUM 9.4 mg/dL (8.4-10.2); CARBON DIOXIDE 27 mmol/L (22-30); CHLORIDE 101 mmol/L (98-107); GLUCOSE 242 mg/dL (75-110); POTASSIUM 4.2 mmol/L (3.6-5.0); SODIUM 140.9 mmol/L (137-145)
[2017-11-30] MEDS ORDERED: LANSOPRAZOLE 30 MG TAB.RAP.DR PO SCH (06:00)
[2017-11-30] MEDS: CARVEDILOL 12.5 MG TABLET PO SCH (07:51)
[2017-11-30] MEDS: INSULIN LISPRO 100 UNIT/ML 3 ML VIAL SUBCUT PRN ×2 (07:52→12:30)
[2017-11-30] MEDS ORDERED: FUROSEMIDE 80 MG TABLET PO SCH (08:00)
[2017-11-30] MEDS ORDERED: INSULIN DETEMIR 100 UNIT/ML 3 ML PEN SUBCUT SCH (08:00)
[2017-11-30] MEDS ORDERED: CLOPIDOGREL BISULFATE 75 MG TABLET PO SCH (10:00)
[2017-11-30] MEDS ORDERED: (PENDING PHARMACY ID) (Lisinopril [Lisinopril] 40 MG) PO SCH (10:00)
[2017-11-30] MEDS ORDERED: LISINOPRIL 10 MG TABLET PO SCH (10:00)
[2017-11-30] MEDS ORDERED: (PENDING PHARMACY ID) (Rosuvastatin Calcium [Rosuvastatin Calcium] 10 MG) PO SCH (10:00)
[2017-11-30] MEDS: DILTIAZEM HCL 180 MG CAPSULE.CR PO SCH (10:03)
[2017-11-30] MEDS: DOCUSATE SODIUM 100 MG CAPSULE PO SCH (10:03)
[2017-11-30] MEDS: APIXABAN 2.5 MG TABLET PO SCH (10:03)
--- NOTE | 2017-11-30 11:57 | PDOC PROGRESS REPORT ---
Subjective Progress Note for:: 11/30/17 Subjective:: Patient seems to be doing better with significant improvement. Pt is denying any chest arm or neck discomfort. Patient denying any PND, orthopnea. Patient denied any sustained palpitations, dizziness, syncope, near syncope. Patient denying any fever chills. Patient denying any other significant discomfort. Patient is maintaining sinus rhythm. Patient had a episode of narrow complex tachycardia felt to be paroxysmal atrial tachycardia. Review of systems: Rest review of systems negative. Medications: Medications have been reviewed. Reason For Visit: AFIB Physical Exam Vital Signs: Temp Pulse Resp BP Pulse Ox 98.1 F 67 14 138/69 H 99 11/30/17 07:46 11/30/17 07:46 11/30/17 07:46 11/30/17 07:46 11/30/17 07:46 Intake & Output 11/29/17 11/30/17 12/01/17 06:59 06:59 06:59 Intake Total 400 1600 Balance 400 1600 Weight 114.6 kg 114.6 kg Exam: GENERAL: well-nourished and in no acute distress. Alert and oriented x3 HEAD: Atraumatic, normocephalic. EYES: Pupils equal round and reactive to light, extraocular movements intact, sclera anicteric, conjunctiva are normal. ENT: TMs normal, nares patent, oropharynx clear without exudates. Moist mucous membranes. No oral ulcerations or bleeding gums noted NECK: supple without lymphadenopathy. Trachea is central. No cervical or axillary lymphadenopathy noted. Carotids are 2+, JVD WNL LUNGS: Respiration seems nonlabored, no significant accessory muscle action noted. Breath sounds clear to auscultation bilaterally and equal noted. No wheezes rales or rhonchi noted. No significant dullness noted on percussion. CHEST: Palpation of the chest wall shows no significant chest wall tenderness. No other significant abnormalities noted. HEART: [place] AGRICULTURAL CHEMIST, No PSH, 1/6 ABIMBOLA aortic area, 1/6 richards systolic murmur mitral area, no rubs, no gallops. ABDOMEN: Soft, no significant tenderness appreciated, normoactive bowel sounds. No guarding, no rebound. No rigidity noted . No masses appreciated. EXTREMITIES: Pedal pulses are 1-2+, no calf tenderness noted. No clubbing or cyanosis. 1+ pedal edema noted NEUROLOGICAL: Focused neurological exam showed no significant neurologic deficit. Normal speech, no focal weakness appreciated. PSYCH: Normal mood, normal affect. Judgment and insight within normal limits. SKIN: No significant ecchymosis, skin is noted to be warm. MUSCULOSKELETAL EXAM: No significant acute joint swelling noted. Results Laboratory Results: 11/30/17 04:49 11/30/17 04:49 11/30/17 11/30/17 04:49 04:49 WBC 8.7 RBC 4.14 L Hgb 13.7 Hct 40.2 MCV 97 MCH 33.1 MCHC 34.1 RDW 13.5 Plt Count 200 Seg Neutrophils % 56.5 Lymphocytes % 29.2 Monocytes % 10.9 Eosinophils % 2.5 Basophils % 0.9 Absolute Neutrophils 4.9 Absolute Lymphocytes 2.5 Absolute Monocytes 1.0 Absolute Eosinophils 0.2 Absolute Basophils 0.1 Sodium 140.9 Potassium 4.2 Chloride 101 Carbon Dioxide 27 Anion Gap 13 BUN 27 H Creatinine 1.35 H Est GFR ( Amer) > 60 Est GFR (Non-Af Amer) 51 L Glucose 242 H Calcium 9.4 Magnesium 2.2 11/28/17 11/29/17 11/29/17 23:26 05:23 05:23 Creatine Kinase 113 CK-MB (CK-2) 2.30 2.47 Troponin I 0.043 0.047 EKG Comments: Telemetry strips shows narrow complex tachycardia, most likely paroxysmal atrial tachycardia. Impressions: Chest X-Ray 11/28/17 14:47 IMPRESSION: NO ACUTE RADIOGRAPHIC FINDING IN THE CHEST. Assessment & Plan - Diagnosis (1) A-fib Qualifiers: Atrial fibrillation type: paroxysmal Qualified Code(s): I48.0 - Paroxysmal atrial fibrillation Is this a current diagnosis for this admission?: Yes (2) Diabetes Qualifiers: Diabetes mellitus type: other specified (including ELLIOTT) Diabetes mellitus exterminator insulin use: with chcf use Diabetes mellitus complication status: without complication Qualified Code(s): E13.9 - Other specified diabetes mellitus without complications; Z79.4 - local intermodal truck driver (current) use of insulin; Z79.4 - jail (current) use of insulin; Z79.4 - local intermodal truck driver (current ) use of insulin; Z79.4 - local intermodal truck driver (current) use of insulin Is this a current diagnosis for this admission?: Yes (3) Fatigue Qualifiers: Fatigue type: chronic, unspecified Qualified Code(s): R53.82 - Chronic fatigue, unspecified Is this a current diagnosis for this admission?: Yes (4) Morbid obesity with BMI of 40.0-44.9, adult Is this a current diagnosis for this admission?: Yes (5) Hypertension Qualifiers: Hypertension type: essential hypertension Qualified Code(s): I10 - Essential (primary) hypertension Is this a current diagnosis for this admission?: Yes (6) Coronary artery disease Qualifiers: Coronary Disease-Associated Artery/Lesion type: [place] artery [place] vs. transplanted heart: [place] heart Associated angina: angina presence unspecified Qualified Code(s): I25.10 - Atherosclerotic heart disease of [place] coronary artery without angina pectoris Is this a current diagnosis for this admission?: Yes (7) Chronic kidney disease Qualifiers: Chronic kidney disease stage: stage 3 (moderate) Qualified Code(s): N18.3 - Chronic kidney disease, stage 3 (moderate) Is this a current diagnosis for this admission?: Yes - Notes Notes: Have increased carvedilol to 25 mg p.o. every 12. Continue with Cardizem CD. Paroxysmal atrial fibrillation: Patient has converted spontaneously to sinus rhythm. At this point would recommend rate control and chronic anticoagulation. Continue patient on Eliquis 2.5 mg p.o. twice daily. Diabetes: Recommend good control of blood sugar but avoid any hypo-or hyperglycemia. Hypertension: Blood pressure goal should be 140/90 or less. Coronary artery disease: Currently stable. Recommend stopping aspirin, starting patient on Eliquis. Continue statin therapy. Continue beta blockers, MARIVEL inhibitor/ARB therapy as needed. Patient does give history of stent placement but they were like 9 years ago therefore does not need aspirin or Plavix to be continued. Fatigue: Patient may have underlying sleep apnea syndrome would benefit from such an evaluation. Sleep apnea is associated with increased risk of atrial fibrillation as well as increased recurrence rate of atrial fibrillation. This was discussed with the patient. Obesity: Patient has been advised to lose weight. Patient will benefit from scheduling a sleep study. Chronic kidney disease: Currently stable. Continue to monitor renal functions. Troponin I are minimally elevated but are related to supply demand mismatch secondary to atrial fibrillation with rapid ventricular response. No need for ischemia evaluation in the absence of chest pain. - Time Time with patient: Greater than 35 minutes - CODE STATUS was discussed, patient remains full code. Surrogate decision-maker unchanged. Multiple medical problems were addressed. More than 50% of the time spent coordinating care, discussing management plans with involved caregivers. Management plans discussed with involved personnels. Medical decision making was of moderate to high complexity, patient's has multiple comorbidities. Medications reviewed and adjusted accordingly: Yes
[2017-11-30 13:11] VITALS: BP 155/73
--- NOTE | 2017-11-30 16:30 | Physician Advisory Note ---
Physician Advisor ProgressNote .: [facility], I have reviewed the medical record for this patient. Physician Advisor Statement: Please consider documenting, if you agree: 1. "Chronic diastolic CHF" Thanks! CK
--- NOTE | 2017-11-30 18:29 | PDOC DISCHARGE SUMMARY ---
General - Admit/Disc Date/PCP Admission Date/Primary Care Provider: 11/28/17 17:51 ENMANUEL HYLTON Discharge Date: 11/30/17 - Discharge Diagnosis (1) A-fib Is this a current diagnosis for this admission?: Yes (2) Chronic kidney disease Is this a current diagnosis for this admission?: Yes (3) Coronary artery disease Is this a current diagnosis for this admission?: Yes (4) Diabetes Is this a current diagnosis for this admission?: Yes (5) Hypertension Is this a current diagnosis for this admission?: Yes (6) Morbid obesity with BMI of 40.0-44.9, adult Is this a current diagnosis for this admission?: Yes (7) 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 Is this a current diagnosis for this admission?: Yes - Additional Information Resuscitation Status: Full Code Discharge Diet: Cardiac, Diabetic Discharge Activity: Activity As Tolerated Prescriptions: Apixaban [Eliquis 2.5 mg Tablet] 2.5 mg PO BID #60 tablet Diltiazem HCl [Cardizem Cd 180 mg Capsule] 180 mg PO DAILY@1100 #30 capsule.cr Home Medications: Carvedilol 12.5 mg PO BIDBS 11/28/17 Furosemide [Lasix 80 mg Tablet] 80 mg PO QAM 11/28/17 Insulin Aspart [Novolog Flexpen] 0 unit SUBCUT .SLD SCALE PRN MDD SEE PATIENT COMMENTS 11/28/17 Insulin Aspart [Novolog Flexpen] 0 units SQ MEALS PRN MDD SEE PATIENT COMMENTS 11/28/17 Insulin Aspart [Novolog Flexpen] 15 unit SQ HSP PRN MDD SEE PATIENT COMMENTS 06/07 Insulin Detemir [Levemir Flextouch] 55 unit SQ QAM 11/28/17 Insulin Detemir [Levemir Flextouch] 58 units SQ QPM 11/28/17 Linagliptin [Tradjenta] 5 mg PO DAILY 11/28/17 Multivitamin [Tab-A-Julieta (Multiple Vitamin) Tablet] 1 tab PO DAILY 11/28/17 Omeprazole 40 mg PO DAILY 11/28/17 Rosuvastatin Calcium 10 mg PO DAILY 11/28/17 Apixaban [Eliquis 2.5 mg Tablet] 2.5 mg PO BID #60 tablet 11/30/17 Diltiazem HCl [Cardizem Cd 180 mg Capsule] 180 mg PO DAILY@1100 #30 capsule.cr 11/30/17 Lisinopril 40 mg PO DAILY #0 11/30/17 History of Present Illness History of Present Illness: PREETI MELENDREZ is a 82 year old male with an unclear past medical history including coronary artery disease with 3 stents, BPH, hypertension, dyslipidemia and diabetes. Patient presented after feeling generally unwell with palpitations 2 hours prior to [email or web address] His heart rate was found to be in the 150s and referred to the emergency room for evaluation. Patient denied shortness of breath, chest pain, nausea or vomiting. He admitted a previous episode approximately 4 months ago where he was transferred to [facility], and discharged with diagnosis unknown to the patient. He was placed on aspirin and plavix. Patient denied recent change in medications, running out or missing dose. He denies excessive alcohol or caffeine, heat or cold intolerance but complained of poor sleep and persistent fatigue. In the emergency room he is found to be in A. fib with RVR in the 130s. He was started on lactated Ringer's, IV diltiazem and referred to the hospitalist for admission. Hospital Course Hospital Course: Patient was admitted to [facility]. He converted to normal sinus rhythm. Patient was evaluated by cardiology service, Dr. Florez. He recommended for patient to be placed on Eliquis. Echocardiogram obtained demonstrated a diastolic dysfunction. Antihypertensive regimen was adjusted and discontinue Norvasc and instead place him on Cardizem. We also adjusted lisinopril for him to take 40 mg p.o. daily instead of 40 mg twice daily. Of concern is that patient may be suffering from sleep apnea. Recommend primary care provider to refer patient to be evaluated in this regard. Patient remained stable from the cardiac standpoint of view. Since patient had achieved maximum benefit of hospitalization stay prompted to discharge. Patient has been advised as to stop Plavix, follow up with his PCP and portrait consultant. Physical Exam Vital Signs: Temp Pulse Resp BP Pulse Ox 97.9 F 62 20 136/54 H 96 11/30/17 03:36 11/30/17 03:36 11/30/17 03:36 11/30/17 03:36 11/30/17 03:36 Intake & Output 11/28/17 11/29/17 11/30/17 06:59 06:59 06:59 Intake Total 400 1600 Balance 400 1600 Weight 114.6 kg 114.6 kg General appearance: PRESENT: cooperative, morbidly obese Head exam: PRESENT: atraumatic, normocephalic Eye exam: PRESENT: EOMI, PERRLA Ear exam: PRESENT: normal external ear exam Mouth exam: PRESENT: moist Neck exam: PRESENT: full ROM. ABSENT: JVD, lymphadenopathy, tenderness Respiratory exam: PRESENT: clear to auscultation racheal Cardiovascular exam: PRESENT: RRR. ABSENT: diastolic murmur, systolic murmur Vascular exam: PRESENT: normal capillary refill GI/Abdominal exam: PRESENT: normal bowel sounds, soft. ABSENT: tenderness Extremities exam: PRESENT: full ROM, +1 edema. ABSENT: tenderness Musculoskeletal exam: PRESENT: ambulatory Neurological exam: PRESENT: alert, awake, oriented to person, oriented to place , oriented to time, oriented to situation, CN II-XII grossly intact Psychiatric exam: PRESENT: appropriate affect, normal mood Skin exam: PRESENT: intact, normal color Results Laboratory Results: 11/30/17 04:49 11/30/17 04:49 11/30/17 11/30/17 04:49 04:49 WBC 8.7 RBC 4.14 L Hgb 13.7 Hct 40.2 MCV 97 MCH 33.1 MCHC 34.1 RDW 13.5 Plt Count 200 Seg Neutrophils % 56.5 Lymphocytes % 29.2 Monocytes % 10.9 Eosinophils % 2.5 Basophils % 0.9 Absolute Neutrophils 4.9 Absolute Lymphocytes 2.5 Absolute Monocytes 1.0 Absolute Eosinophils 0.2 Absolute Basophils 0.1 Sodium 140.9 Potassium 4.2 Chloride 101 Carbon Dioxide 27 Anion Gap 13 BUN 27 H Creatinine 1.35 H Est GFR ( Amer) > 60 Est GFR (Non-Af Amer) 51 L Glucose 242 H Calcium 9.4 Magnesium 2.2 11/28/17 11/29/17 11/29/17 23:26 05:23 05:23 Creatine Kinase 113 CK-MB (CK-2) 2.30 2.47 Troponin I 0.043 0.047 Impressions: Chest X-Ray 11/28/17 14:47 IMPRESSION: NO ACUTE RADIOGRAPHIC FINDING IN THE CHEST. Qualifiers - * PATEINT BEING DISCHARGED WITH ANY OF THE FOLLOWING DIAGNOSIS?: No Plan Discharge Plan: Discharge home. Patient has been instructed to follow-up with his PCP and portrait consultant Time Spent: Less than 30 Minutes
[2017-11-30] MEDS ORDERED: CARVEDILOL 12.5 MG TABLET PO SCH (22:00)
== END 2017-11-30 12:45 | disposition home health service (06) | DRG 309 ==
LOC: ER 14:42 → EH 17:51 → 3W 20:02
PROVIDERS: ADMIT Internal Medicine; ATTEND Internal Medicine
DX: I48.0 Paroxysmal atrial fibrillation (principal); Z68.41 Body mass index [BMI] 40.0-44.9, adult; I13.0 Hypertensive heart and chronic kidney disease with heart failure and stage 1 through stage 4 chronic kidney disease, or unspecified chronic kidney disease; I50.32 Chronic diastolic (congestive) heart failure; E11.22 Type 2 diabetes mellitus with diabetic chronic kidney disease; I25.10 Atherosclerotic heart disease of native coronary artery without angina pectoris; E78.5 Hyperlipidemia, unspecified; N18.3 Chronic kidney disease, stage 3 (moderate); N40.0 Benign prostatic hyperplasia without lower urinary tract symptoms; E66.01 Morbid (severe) obesity due to excess calories; R53.82 Chronic fatigue, unspecified; Z95.5 Presence of coronary angioplasty implant and graft; Z87.891 Personal history of nicotine dependence; Z79.4 Long term (current) use of insulin; Z79.899 Other long term (current) drug therapy
CPT/HCPCS: 36415; 71045; 80048; 80053; 80061; 82550; 82553; 82962; 83690; 83735; 83880; 84484; 85025; 85610; 85730; 93005; 93010; 93306; 96365; 99291; J1815; J3490

== ENCOUNTER 2017-12-01 19:51 | Emergency (ER) | payer MEDICARE, MEDICAID ==
--- NOTE | 2017-12-01 20:16 | ER Document Report ---
ED General - General Stated Complaint: DIZZYNESS Time Seen by Provider: 12/01/17 20:13 Notes: Patient is an 82-year-old male with a past medical history of hypertension, hyperlipidemia, recently diagnosed A. fib who presents with dizziness and orthostasis for the past 12-24 hours. Patient was recently discharged from the hospital with a new diagnosis of A. fib, started on diltiazem. He reports that they also changed his furosemide from being 40 mg twice daily to 80 mg once in the morning. He states that throughout the day he has had intermittent periods of lightheadedness feeling like he was about to pass out. He states that he had a near syncopal episode today when he went from sitting to standing which prompted him to contact EMS. He denies any history of similar symptoms in the past. He denies any chest pain, shortness of breath, nausea or vomiting. No focal weakness or numbness. He has not yet followed up with his primary care doctor. At the time of my evaluation he states that his symptoms overall feel improved. He believes that his symptoms may be secondary to recent medication adjustments. TRAVEL OUTSIDE OF THE [place] IN LAST 30 DAYS: No - Related Data Allergies/Adverse Reactions: amoxicillin Allergy (Verified 11/28/17 16:48) divalproex sodium [From Depakote] Allergy (Verified 11/28/17 16:48) levofloxacin [From Levaquin] Allergy (Verified 11/28/17 16:48) Past Medical History - General Information source: Patient - Social History Smoking Status: Never Smoker Frequency of alcohol use: None Drug Abuse: None Lives with: Spouse/Significant other Family History: Reviewed & Not Pertinent, Hypertension - Past Medical History Cardiac Medical History: Reports: Hx Atrial Fibrillation, Hx Congestive Heart Failure, Hx Coronary Artery Disease, Hx Hypertension Endocrine Medical History: Reports: Hx Diabetes Mellitus Type 2 Renal/ Medical History: Denies: Hx Peritoneal Dialysis Psychiatric Medical History: Denies: Hx Dementia Past Surgical History: Reports: Hx Cardiac Catheterization, Hx Coronary Stent - Immunizations Hx Pneumococcal Vaccination: 05/30/17 Review of Systems - Review of Systems Notes: Constitutional: Negative for fever. HENT: Negative for sore throat. Eyes: Negative for visual changes. Cardiovascular: Negative for chest pain. Positive for near syncope Respiratory: Negative for shortness of breath. Gastrointestinal: Negative for abdominal pain, vomiting or diarrhea. Genitourinary: Negative for dysuria. Musculoskeletal: Negative for back pain. Skin: Negative for rash. Neurological: Negative for headaches, weakness or numbness. 10 point ROS negative except as marked above and in HPI. Physical Exam - Vital signs Vitals: Resp 18 12/01/17 20:13 Interpretation: Normal Notes: PHYSICAL EXAMINATION: GENERAL: Well-appearing, well-nourished and in no acute distress. HEAD: Atraumatic, normocephalic. EYES: Pupils equal round and reactive to light, extraocular movements intact, sclera anicteric, conjunctiva are normal. ENT: nares patent, oropharynx clear without exudates. Moist mucous membranes. NECK: Normal range of motion, supple without lymphadenopathy LUNGS: Breath sounds clear to auscultation bilaterally and equal. No wheezes rales or rhonchi. HEART: Regular rate and rhythm without murmurs ABDOMEN: Soft, nontender, normoactive bowel sounds. No guarding, no rebound. No masses appreciated. EXTREMITIES: Normal range of motion, no pitting or edema. No cyanosis. NEUROLOGICAL: No focal neurological deficits. Moves all extremities spontaneously and on command. PSYCH: Normal mood, normal affect. SKIN: Warm, Dry, normal turgor, no rashes or lesions noted. Course - Re-evaluation Re-evalutation: 12/01/17 20:15 Patient presents with orthostatic lightheadedness and dizziness that has been intermittent throughout the day today. He was just discharged from the hospital yesterday and was started on diltiazem in addition to the carvedilol and lisinopril he already takes for baseline hypertension. Patient notes that the symptoms are mostly when going from a sitting to standing position and had a near syncopal episode today when he went from sitting in a recliner for quite some time to standing up time attempting to walk in the kitchen. At time of arrival patient denies any complaints, states he otherwise feels well denies any ongoing lightheadedness or dizziness. EKG shows A. fib but no rapid ventricular response. The patient denies any chest pain or shortness of breath to suggest ACS, acute pulmonary embolus, or aortic dissection as the etiology of today's presentation. I suspect that this may be a medication side effect as patient is on 4 different medications that can lower blood pressure including diltiazem, carvedilol, lisinopril, and furosemide. Will obtain orthostatic vital signs, obtain basic laboratories, and reassess the patient. 12/01/17 22:20 Patient's laboratories are notable for a mild acute kidney injury, creatinine slightly worse from time of discharge increased from 1.53-1.8. Urine creatinine ratio is 20 consistent with a prerenal azotemia which may be secondary to dehydration versus over diuresis. Will give back 500 cc of fluid and then asked that the patient follow up with his primary care doctor for recheck of his renal functions and consideration of medication adjustments if he continues to have similar issues. At this time will discharge with return precautions and follow-up recommendations. Verbal discharge instructions given a the bedside and opportunity for questions given. Medication warnings reviewed. Patient is in agreement with this plan and has verbalized understanding of return precautions and the need for primary care follow-up in the next 24-72 hours. - Vital Signs Vital signs: Temp Pulse Resp BP Pulse Ox 84 18 153/65 H 96 12/01/17 20:18 12/01/17 23:01 12/01/17 23:01 12/01/17 23:01 - Laboratory Result Diagrams: 12/01/17 20:43 12/01/17 20:43 Laboratory results interpreted by me: 12/01/17 12/01/17 20:43 20:43 WBC 11.2 H RBC 4.34 L MCV 98 H BUN 35 H Creatinine 1.80 H Est GFR ( Amer) 44 L Est GFR (Non-Af Amer) 36 L Glucose 157 H - Diagnostic Test Radiology reviewed: Image reviewed, Reports reviewed Radiology results interpreted by me: 12/01/17 22:21 Chest x-ray: No acute infiltrate or pneumothorax - EKG Interpretation by Me Additional EKG results interpreted by me: 12/02/17 04:17 Sinus rhythm. Rate 76. No ST elevations or depressions. QTC is 450. Discharge - Discharge Clinical Impression: Acute kidney injury, Dehydration, Diuresis excessive Condition: Good Disposition: HOME, SELF-CARE Additional Instructions: Please go back to taking your furosemide as 40 mg in the morning and 40 mg at night. Continue to monitor your fluid intake and ensure that you are not becoming dehydrated. Your labs do show that your kidney function has slightly worsened consistent with getting dehydrated and the recent medication changes that you underwent during your hospitalization. Please follow-up with your primary care doctor within the next 3-5 days for recheck of your kidney function. Return to the emergency department if you develop chest pain, shortness of breath, pass out, have persistent vomiting, or have any other symptoms that are worrisome to you. Referrals: LINNEA BLACK PA [Primary Care Provider] - Follow up as needed
[2017-12-01 21:12] LABS: ABSOLUTE BASOPHILS # (AUTO) 0.1 10^3/uL (0.0-0.2); ABSOLUTE EOSINOPHILS # (AUTO) 0.2 10^3/uL (0.0-0.6); ABSOLUTE LYMPHOCYTES (AUTO) 2.6 10^3/uL (0.5-4.7); ABSOLUTE MONOCYTES (AUTO) 1.1 10^3/uL (0.1-1.4); ABSOLUTE NEUT (AUTO) 7.1 10^3/uL (1.7-8.2); HEMATOCRIT 42.4 % (37.9-51.0); HEMOGLOBIN 14.1 g/dL (13.5-17.0); LYMPHOCYTES % (AUTO) 23.3 % (13-45); MEAN CORPUSCULAR HEMOGLOBIN 32.5 pg (27.0-33.4); MEAN CORPUSCULAR HGB CONC 33.2 g/dL (32.0-36.0); MEAN CORPUSCULAR VOLUME 98 fl (80-97); MONOCYTES % (AUTO) 10.2 % (3-13); PLATELET COUNT 252 10^3/uL (150-450); RED BLOOD COUNT 4.34 10^6/uL (4.35-5.55); RED CELL DISTRIBUTION WIDTH 13.3 % (11.5-14.0); SEGMENTED NEUTROPHILS % (AUTO) 63.5 % (42-78); TOTAL CELLS COUNTED % (AUTO) 100 %; WHITE BLOOD COUNT 11.2 10^3/uL (4.0-10.5)
--- NOTE | 2017-12-01 21:16 | RADIOLOGY REPORT (SQ) ---
EXAM DESCRIPTION: CHEST SINGLE VIEW COMPLETED DATE/TIME: 12/01/2017 9:03 pm REASON FOR STUDY: cough COMPARISON: 11/28/2017 NUMBER OF VIEWS: One view. TECHNIQUE: Single frontal radiographic view of the chest acquired. LIMITATIONS: None. FINDINGS: LUNGS AND PLEURA: No opacities, masses or pneumothorax. No pleural effusion. MEDIASTINUM AND HILAR STRUCTURES: No masses. Contour normal. HEART AND VASCULAR STRUCTURES: Heart enlarged without failure. Normal vasculature. BONES: No acute findings. HARDWARE: None in the chest. OTHER: No other significant finding. IMPRESSION: NO ACUTE CARDIOPULMONARY PROCESS. NO SIGNIFICANT CHANGE FROM PRIOR STUDY. TECHNICAL DOCUMENTATION: JOB ID: [id number] [employer]- All Rights Reserved Reading location - IP/workstation name: [email or web address]
[2017-12-01 21:21] LABS: ANION GAP 12 (5-19); BLOOD UREA NITROGEN 35 mg/dL (7-20); CALCIUM 9.4 mg/dL (8.4-10.2); CARBON DIOXIDE 27 mmol/L (22-30); CHLORIDE 101 mmol/L (98-107); GLUCOSE 157 mg/dL (75-110); POTASSIUM 4.3 mmol/L (3.6-5.0); SODIUM 140.2 mmol/L (137-145)
[2017-12-01] MEDS ORDERED: NORMAL SALINE 1000 ML 500 ML IV ONE (22:19)
[2017-12-01 23:29] VITALS: BP 153/65
--- NOTE | 2017-12-02 09:43 | EKG REPORT ---
SEVERITY:- ABNORMAL ECG - SINUS RHYTHM CONSIDER ANTEROSEPTAL INFARCT : Confirmed by: Kevin Doherty MD 02-Dec-2017 09:42:27
== END 2017-12-01 23:29 | disposition home or self-care (01) ==
LOC: ER 19:51
DX: N17.9 Acute kidney failure, unspecified (principal); E86.0 Dehydration; R35.8 Other polyuria; R42 Dizziness and giddiness; I48.91 Unspecified atrial fibrillation; I10 Essential (primary) hypertension; I25.10 Atherosclerotic heart disease of native coronary artery without angina pectoris; E11.9 Type 2 diabetes mellitus without complications; Z79.899 Other long term (current) drug therapy
CPT/HCPCS: 93005; 99284; 96360; 36415; 85025; 80048; 84484; 71045; 93010; J7030

== ENCOUNTER 2018-01-13 14:52 | Observation (INO) | payer MEDICARE, MEDICAID ==
[2018-01-13] MEDS ORDERED: ASPIRIN 81 MG TABLET, CHEWABLE PO ONE (14:59)
--- NOTE | 2018-01-13 15:16 | ER Document Report ---
ED Cardiac - General Chief Complaint: Chest Pain > 30 Stated Complaint: CHEST PAIN Time Seen by Provider: 01/13/18 15:04 Notes: Patient is an 82-year-old male with a past medical history of hypertension, DM, hyperlipidemia, recently diagnosed A. fib (on Eliquiis), CHF, presents with 1 hour of a left-sided chest pain that he describes as a mild pressure. It started at rest and he does not remember lifting any heavy objects. Patient denies shortness of breath, increased leg swelling, radiation of pain, numbness , tingling, back pain, nausea, vomiting or fevers. TRAVEL OUTSIDE OF THE [place] IN LAST 30 DAYS: No - Related Data Allergies/Adverse Reactions: amoxicillin Allergy (Verified 11/28/17 16:48) divalproex sodium [From Depakote] Allergy (Verified 11/28/17 16:48) levofloxacin [From Levaquin] Allergy (Verified 11/28/17 16:48) Past Medical History - General Information source: Patient - Social History Smoking Status: Unknown if Ever Smoked Family History: Reviewed & Not Pertinent, Hypertension - Past Medical History Cardiac Medical History: Reports: Hx Atrial Fibrillation, Hx Congestive Heart Failure, Hx Coronary Artery Disease, Hx Hypertension Endocrine Medical History: Reports: Hx Diabetes Mellitus Type 2 Renal/ Medical History: Denies: Hx Peritoneal Dialysis Psychiatric Medical History: Denies: Hx Dementia Past Surgical History: Reports: Hx Cardiac Catheterization, Hx Coronary Stent - Immunizations Hx Pneumococcal Vaccination: 05/30/17 Review of Systems - Review of Systems Notes: REVIEW OF SYSTEMS: CONSTITUTIONAL: -fevers, -chills EENT: -eye pain, -difficulty swallowing, -nasal congestion CARDIOVASCULAR: +chest pain, -syncope. RESPIRATORY: -cough, -SOB GASTROINTESTINAL: -abdominal pain, -nausea, -vomiting, -diarrhea GENITOURINARY: -dysuria, -hematuria MUSCULOSKELETAL: -back pain, -neck pain SKIN: -rash or skin lesions. HEMATOLOGIC: -easy bruising or bleeding. LYMPHATIC: -swollen, enlarged glands. NEUROLOGICAL: -altered mental status or loss of consciousness, -headache, - neurologic symptoms PSYCHIATRIC: -anxiety, -depression. ALL OTHER SYSTEMS REVIEWED AND NEGATIVE. Physical Exam - Vital signs Vitals: Resp 15 01/13/18 15:10 - Notes Notes: PHYSICAL EXAMINATION: GENERAL: Well-appearing, well-nourished and in no acute distress. HEAD: Atraumatic, normocephalic. EYES: Pupils equal round and reactive to light, extraocular movements intact, sclera anicteric, conjunctiva are normal. ENT: nares patent, oropharynx clear without exudates. Moist mucous membranes. NECK: Normal range of motion, supple without lymphadenopathy LUNGS: Breath sounds clear to auscultation bilaterally and equal. No wheezes rales or rhonchi. HEART: Regular rate and rhythm without murmurs ABDOMEN: Soft, nontender, normoactive bowel sounds. No guarding, no rebound. No masses appreciated. EXTREMITIES: Normal range of motion, no pitting or edema. No cyanosis. Strong distal pulses. NEUROLOGICAL: Cranial nerves grossly intact. Normal speech, normal gait. Normal sensory and motor exams. PSYCH: Normal mood, normal affect. SKIN: Warm, Dry, normal turgor, no rashes or lesions noted. Course - Re-evaluation Re-evalutation: Patient appears well and not in acute distress. EKG does not show evidence of a STEMI. His HEART score is 5 (1 for story, 2 for age, 2 for risk factors). Last stress test was last year and he thinks it was negative. Pt's chest pain improved with aspirin, but nitro did not change the pain. Morphine relieved his pain. Chest x-ray shows a questionable early right lower lobe pneumonia, patient is not having any cough, fevers or a leukocytosis. Will not treat for PNA at this time and will continue to monitor. Symptoms are atypical for aortic dissection, esophageal perforation or PE at this time. His PMD is Dr. Cruz in [facility]. 01/13/18 16:[address] Gong (Hospitalist) and will bring patient in for Tele Obs for further evaluation and treatment. - Vital Signs Vital signs: Temp Pulse Resp BP Pulse Ox 18 115/61 94 01/13/18 16:02 01/13/18 16:02 01/13/18 16:02 - Laboratory Result Diagrams: 01/13/18 14:36 01/13/18 14:36 Laboratory results interpreted by me: 01/13/18 01/13/18 14:36 14:36 RBC 4.20 L MCV 99 H Sodium 146.1 H BUN 27 H Creatinine 1.56 H Est GFR ( Amer) 52 L Est GFR (Non-Af Amer) 43 L Glucose 160 H - Diagnostic Test Radiology reviewed: Image reviewed, Reports reviewed Radiology results interpreted by me: CXR: In the appropriate clinical setting, subtle findings may represent a developing right lower lobe pneumonia. - EKG Interpretation by Me EKG shows normal: Sinus rhythm, [place], Intervals, QRS Complexes, ST-T Waves Rate: Normal When compared to previous EKG there are: No significant change Discharge - Discharge Clinical Impression: Chest pain Qualifiers: Chest pain type: unspecified Qualified Code(s): R07.9 - Chest pain, unspecified Condition: Stable Disposition: ADMITTED OBSERVATION Admitting Provider: Hospitalist - [facility] Admitted: Telemetry Referrals: LINNEA BLACK PA [Primary Care Provider] - Follow up as needed
[2018-01-13] MEDS ORDERED: NITROGLYCERIN 0.4 MG/TAB 25 TAB/BOTTLE SL PRN (15:17)
[2018-01-13 15:36] LABS: ABSOLUTE BASOPHILS # (AUTO) 0.1 10^3/uL (0.0-0.2); ABSOLUTE EOSINOPHILS # (AUTO) 0.2 10^3/uL (0.0-0.6); ABSOLUTE LYMPHOCYTES (AUTO) 2.3 10^3/uL (0.5-4.7); ABSOLUTE NEUT (AUTO) 4.6 10^3/uL (1.7-8.2); BASOPHILS % (AUTO) 0.7 % (0-2); EOSINOPHILS % (AUTO) 2.7 % (0-6); HEMATOCRIT 41.4 % (37.9-51.0); HEMOGLOBIN 13.9 g/dL (13.5-17.0); LYMPHOCYTES % (AUTO) 28.3 % (13-45); MEAN CORPUSCULAR HEMOGLOBIN 33.2 pg (27.0-33.4); MEAN CORPUSCULAR HGB CONC 33.6 g/dL (32.0-36.0); MEAN CORPUSCULAR VOLUME 99 fl (80-97); MONOCYTES % (AUTO) 12.7 % (3-13); PLATELET COUNT 236 10^3/uL (150-450); RED CELL DISTRIBUTION WIDTH 13.8 % (11.5-14.0); SEGMENTED NEUTROPHILS % (AUTO) 55.6 % (42-78); TOTAL CELLS COUNTED % (AUTO) 100 %; WHITE BLOOD COUNT 8.3 10^3/uL (4.0-10.5)
[2018-01-13 15:45] LABS: ALANINE AMINOTRANSFERASE 36 U/L (21-72); ALKALINE PHOSPHATASE 64 U/L (38-126); ANION GAP 14 (5-19); ASPARTATE AMINO TRANSFERASE 34 U/L (17-59); BILIRUBIN,DIRECT 0.2 mg/dL (0.0-0.4); BILIRUBIN,TOTAL 0.2 mg/dL (0.2-1.3); BLOOD UREA NITROGEN 27 mg/dL (7-20); CALCIUM 9.4 mg/dL (8.4-10.2); CARBON DIOXIDE 28 mmol/L (22-30); CHLORIDE 104 mmol/L (98-107); CREATINE KINASE 118 U/L (55-170); GLUCOSE 160 mg/dL (75-110); POTASSIUM 4.6 mmol/L (3.6-5.0); SODIUM 146.1 mmol/L (137-145); TOTAL PROTEIN 6.7 g/dL (6.3-8.2)
--- NOTE | 2018-01-13 15:47 | RADIOLOGY REPORT (SQ) ---
EXAM DESCRIPTION: CHEST SINGLE VIEW COMPLETED DATE/TIME: 01/13/2018 3:39 pm REASON FOR STUDY: cp COMPARISON: 12/01/2017 and 11/28/2017 EXAM PARAMETERS: NUMBER OF VIEWS: One view. TECHNIQUE: Single frontal radiographic view of the chest acquired. RADIATION DOSE: NA LIMITATIONS: The right costophrenic angle is not included in the imaged field of view. FINDINGS: LUNGS AND PLEURA: Subtly increased right lower lobe mixed interstitial and airspace opacit ies. The lungs are otherwise clear. No pneumothorax. No large pleural effusion evident. MEDIASTINUM AND HILAR STRUCTURES: No masses. Contour normal. HEART AND VASCULAR STRUCTURES: Heart normal in size. Normal vasculature. BONES: No acute findings. HARDWARE: None in the chest. OTHER: No other significant finding. IMPRESSION: In the appropriate clinical setting, subtle findings may represent a developing right lo wer lobe pneumonia. TECHNICAL DOCUMENTATION: JOB ID: [id number] [employer]- All Rights Reserved Reading location - IP/workstation name: [email or web address]
[2018-01-13 15:54] LABS: CREATINE KINASE MB 1.89 ng/mL (<4.55); TROPONIN I 0.022 ng/mL
[2018-01-13] MEDS ORDERED: MORPHINE SULFATE 10 MG/ML INJ IV ONE (16:27)
--- NOTE | 2018-01-13 16:37 | EKG REPORT ---
SEVERITY:- NORMAL ECG - SINUS RHYTHM : Confirmed by: Kevin Doherty MD 13-Jan-2018 16:36:30
[2018-01-13] MEDS ORDERED: IPRATROPIUM/ALBUTEROL 0.5-2.5 MG/3 ML AMPUL NEB PRN (16:41)
[2018-01-13] MEDS ORDERED: ACETAMINOPHEN 325 MG TABLET PO PRN (16:41)
[2018-01-13] MEDS ORDERED: DEXTROSE 50%-WATER 25 GM/50 ML DISP.SYRIN IV PRN ×2 (16:56)
[2018-01-13] MEDS ORDERED: DEXTROSE 40% GEL 15 GM TUBE PO PRN ×2 (16:56)
[2018-01-13] MEDS ORDERED: GLUCAGON,HUMAN RECOMB 1 MG INJ IM PRN (16:56)
[2018-01-13] MEDS ORDERED: INSULIN LISPRO 100 UNIT/ML 3 ML VIAL SUBCUT PRN (16:56)
[2018-01-13] MEDS ORDERED: MAG HYDROX/AL HYDROX/SIMETH SUSP 30 ML UDCUP PO PRN (17:01)
[2018-01-13] MEDS ORDERED: SIMETHICONE 80 MG TAB.CHEW PO PRN (17:01)
--- NOTE | 2018-01-13 17:39 | PDOC H&P ---
History of Present Illness Admission Date/PCP: ENMANUEL HYLTON Patient complains of: Chest pain History of Present Illness: PREETI MELENDREZ is a 82 year old male who comes into the emergency department complaining of left-sided chest pain. 3 out of 10 in severity, no radiation, no relation to activity, no relation to eating, no relation to position. It was unaffected by nitro. He has a history of coronary artery disease and is had 3 stents, as well as a recent admission for paroxysmal atrial fibrillation that spontaneously converted to sinus rhythm. He states that he has lower extremity edema that is not significantly changed. He denies any cough, change in his chronic dyspnea on exertion. He states he has been taking his medication as directed. Past Medical History Cardiac Medical History: Reports: Atrial Fibrillation, Congestive Heart Failure , Coronary Artery Disease, Hypertension Endocrine Medical History: Reports: Diabetes Mellitus Type 2, Obesity GI Medical History: Reports: Gastroesophageal Reflux Disease Psychiatric Medical History: Denies: Dementia Past Surgical History Past Surgical History: Reports: Cardiac Catheterization, Coronary Stent Social History Information Source: Patient Lives with: Alone Smoking Status: Former Smoker - Quit in 1992 Frequency of Alcohol Use: None Drugs: None - Advance Directive Resuscitation Status: Full Code Family History Family History: CAD - Mother at about 65, CVA - Father in his 50s, Hypertension Parental Family History Reviewed: Yes Children Family History Reviewed: No Sibling(s) Family History Reviewed.: No Medication/Allergy Home Medications: Carvedilol 12.5 mg PO BIDBS 11/28/17 Furosemide [Lasix 80 mg Tablet] 80 mg PO QAM 11/28/17 Insulin Aspart [Novolog Flexpen] 0 unit SUBCUT .SLD SCALE PRN MDD SEE PATIENT COMMENTS 11/28/17 Insulin Aspart [Novolog Flexpen] 0 units SQ MEALS PRN MDD SEE PATIENT COMMENTS 11/28/17 Insulin Aspart [Novolog Flexpen] 15 unit SQ HSP PRN MDD SEE PATIENT COMMENTS 06/07 Insulin Detemir [Levemir Flextouch] 55 unit SQ QAM 11/28/17 Insulin Detemir [Levemir Flextouch] 58 units SQ QPM 11/28/17 Linagliptin [Tradjenta] 5 mg PO DAILY 11/28/17 Multivitamin [Tab-A-Julieta (Multiple Vitamin) Tablet] 1 tab PO DAILY 11/28/17 Omeprazole 40 mg PO DAILY 11/28/17 Rosuvastatin Calcium 10 mg PO DAILY 11/28/17 Apixaban [Eliquis 2.5 mg Tablet] 2.5 mg PO BID #60 tablet 11/30/17 Diltiazem HCl [Cardizem Cd 180 mg Capsule] 180 mg PO DAILY@1100 #30 capsule.cr 11/30/17 Lisinopril 40 mg PO DAILY #0 11/30/17 Allergies/Adverse Reactions: amoxicillin Allergy (Verified 11/28/17 16:48) divalproex sodium [From Depakote] Allergy (Verified 11/28/17 16:48) levofloxacin [From Levaquin] Allergy (Verified 11/28/17 16:48) Review of Systems All systems: reviewed and no additional remarkable complaints except as stated Physical Exam Vital Signs: Temp Pulse Resp BP Pulse Ox 18 115/61 94 01/13/18 16:02 01/13/18 16:02 01/13/18 16:02 Intake & Output 01/12/18 01/13/18 01/14/18 05:59 05:59 05:59 Weight 255 lb 4.725 oz General appearance: PRESENT: no acute distress, cooperative, morbidly obese Respiratory exam: PRESENT: clear to auscultation racheal Cardiovascular exam: PRESENT: RRR GI/Abdominal exam: PRESENT: distended, soft. ABSENT: tenderness Extremities exam: PRESENT: +2 edema - Bilateral lower extremities below the knees Musculoskeletal exam: PRESENT: normal inspection Neurological exam: PRESENT: alert Psychiatric exam: PRESENT: appropriate affect Skin exam: PRESENT: dry, warm Results Laboratory Results: 01/13/18 14:36 01/13/18 14:36 01/13/18 01/13/18 14:36 14:36 WBC 8.3 RBC 4.20 L Hgb 13.9 Hct 41.4 MCV 99 H MCH 33.2 MCHC 33.6 RDW 13.8 Plt Count 236 Seg Neutrophils % 55.6 Lymphocytes % 28.3 Monocytes % 12.7 Eosinophils % 2.7 Basophils % 0.7 Absolute Neutrophils 4.6 Absolute Lymphocytes 2.3 Absolute Monocytes 1.0 Absolute Eosinophils 0.2 Absolute Basophils 0.1 Sodium 146.1 H Potassium 4.6 Chloride 104 Carbon Dioxide 28 Anion Gap 14 BUN 27 H Creatinine 1.56 H Est GFR ( Amer) 52 L Est GFR (Non-Af Amer) 43 L Glucose 160 H Calcium 9.4 Total Bilirubin 0.2 AST 34 ALT 36 Alkaline Phosphatase 64 Total Protein 6.7 Albumin 4.0 01/13/18 01/13/18 14:36 14:36 Creatine Kinase 118 CK-MB (CK-2) 1.89 Troponin I 0.022 Impressions: Chest X-Ray 01/13/18 14:59 IMPRESSION: In the appropriate clinical setting, subtle findings may represent a developing right lower lobe pneumonia. Assessment & Plan - Diagnosis (1) Chest pain Qualifiers: Chest pain type: precordial pain Qualified Code(s): R07.2 - Precordial pain Is this a current diagnosis for this admission?: Yes Plan: Mostly atypical. I will put him in a monitored bed, get serial cardiac enzymes , and do a Lexiscan Cardiolite in the morning. 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 I will continue his Lasix dose that put him on IV and monitor (4) Chronic kidney disease Qualifiers: Chronic kidney disease stage: stage 3 (moderate) Qualified Code(s): N18.3 - Chronic kidney disease, stage 3 (moderate) Is this a current diagnosis for this admission?: Yes Plan: Appears to be roughly at his baseline (5) Coronary artery disease Qualifiers: Coronary Disease-Associated Artery/Lesion type: [place] artery [place] vs. transplanted heart: [place] heart Associated angina: angina presence unspecified Qualified Code(s): I25.10 - Atherosclerotic heart disease of [place] coronary artery without angina pectoris Is this a current diagnosis for this admission?: Yes Plan: He states he has had 3 stents, but further details are unavailable (6) Diabetes Qualifiers: Diabetes mellitus type: type 2 Diabetes mellitus correction insulin use: with correction use Diabetes mellitus complication status: without complication Qualified Code(s): E11.9 - Type 2 diabetes mellitus without complications; Z79.4 - [facility] (current) use of insulin; Z79.4 - [facility] ( current) use of insulin; Z79.4 - [facility] (current) use of insulin; Z79.4 - [facility] (current) use of insulin Is this a current diagnosis for this admission?: Yes Plan: Continue his home medication and put him on a very aggressive sliding scale. (7) Hypertension Qualifiers: Hypertension type: essential hypertension Qualified Code(s): I10 - Essential (primary) hypertension Is this a current diagnosis for this admission?: Yes Plan: Continue his home medications (8) Morbid obesity with BMI of 40.0-44.9, adult Is this a current diagnosis for this admission?: Yes
[2018-01-13] MEDS ORDERED: INSULIN DETEMIR 100 UNIT/ML 3 ML PEN SUBCUT SCH (18:00)
[2018-01-13] MEDS ORDERED: FUROSEMIDE INJ/PF 40 MG/4 ML SDV IV ONE (18:00)
[2018-01-13] MEDS: APIXABAN 2.5 MG TABLET PO SCH (18:29)
[2018-01-13] MEDS: FAMOTIDINE 20 MG TABLET PO SCH (21:49)
[2018-01-13] MEDS ORDERED: ATORVASTATIN CALCIUM 20 MG TABLET PO SCH (22:00)
[2018-01-13] MEDS ORDERED: INSULIN DETEMIR 100 UNIT/ML 3 ML PEN SUBCUT ONE (22:02)
[2018-01-14] MEDS ORDERED: LANSOPRAZOLE 30 MG TAB.RAP.DR PO SCH (06:00)
[2018-01-14] MEDS ORDERED: INSULIN DETEMIR 100 UNIT/ML 3 ML PEN SUBCUT SCH (08:00)
[2018-01-14] MEDS ORDERED: CARVEDILOL 12.5 MG TABLET PO SCH (08:00)
[2018-01-14] MEDS ORDERED: FUROSEMIDE INJ/PF 40 MG/4 ML SDV IV SCH (08:00)
[2018-01-14 08:43] LABS: ALBUMIN 4.1 g/dL (3.5-5.0); ANION GAP 13 (5-19); BLOOD UREA NITROGEN 27 mg/dL (7-20); CALCIUM 9.3 mg/dL (8.4-10.2); CARBON DIOXIDE 28 mmol/L (22-30); CHLORIDE 105 mmol/L (98-107); GLUCOSE 172 mg/dL (75-110); PHOSPHORUS 3.7 mg/dL (2.5-4.5); POTASSIUM 4.4 mmol/L (3.6-5.0); SODIUM 145.8 mmol/L (137-145)
[2018-01-14] MEDS ORDERED: LISINOPRIL 10 MG TABLET PO SCH (10:00)
[2018-01-14] MEDS ORDERED: SITAGLIPTIN PHOSPHATE 50 MG TABLET PO SCH (10:00)
[2018-01-14] MEDS: FAMOTIDINE 20 MG TABLET PO SCH (10:25)
[2018-01-14] MEDS ORDERED: DILTIAZEM HCL 180 MG CAPSULE.CR PO SCH (11:00)
[2018-01-14] MEDS: APIXABAN 2.5 MG TABLET PO SCH (12:42)
[2018-01-14] MEDS ORDERED: REGADENOSON INJ 0.4 MG/5 ML DISP.SYRIN IV ONE (13:27)
--- NOTE | 2018-01-14 13:35 | DRAGON STRESS TEST REPORT ---
Intravenous Lexiscan Cardiolite stress test using single photon emmision computerized tomography. Date of procedure: 01/14/2018. Ordering Provider: Dr. Abhinav Gong. Patient's status: In Patient Indication: Chest pain. Coronary risk factors: Age, diabetes mellitus, hypertension, dyslipidemia, and family history of coronary artery disease. Resting EKG: Sinus Rhythm. No acute changes Stress EKG: No changes of ischemia. The patient had no chest pain or discomfort, and there were no arrhythmias seen. Reason for termination: Protocol. Conclusions: Normal EKG and hemodynamic response to IV Lexiscan. Nuclear data: At rest the patient was given 14.01 millicuries of technetium 99m sestamibi injected intravenously. As per protocol rest non gated SPECT images were obtained. Subsequently the patient was given intravenous Lexiscan at a dose of 0.4 mg in 5 mL intravenously, followed by flush with normal saline. Subsequently the stress dose of 46.0 millicuries of technetium 99m sestamibi was injected intravenously. As per protocol stress gated images were obtained. Nuclear interpretation: Review of images showed that all segments of the myocardium had normal perfusion at rest, and normal perfusion post stress with IV Lexiscan. All segments of the myocardium had normal motion, contraction, and thickening by gated study. T. I D. ratio was normal at 1.00. Computer read rest, and stress left ventricular ejection fraction were 59 %, and 59 %, respectively. Conclusion: 1. There is no scintigraphic evidence of Lexiscan induced myocardial ischemia. 2. There is no scintigraphic evidence of myocardial infarction/scar. Recommendations: Aggressive risk factor modification, and treating the underlying co- morbidities. MTDD
[2018-01-14 14:29] VITALS: BP 116/50
--- NOTE | 2018-01-14 15:01 | PDOC DISCHARGE SUMMARY ---
General - Admit/Disc Date/PCP Admission Date/Primary Care Provider: 01/13/18 17:05 ENMANUEL HYLTON Discharge Date: 01/14/18 - Discharge Diagnosis (1) Chest pain Is this a current diagnosis for this admission?: Yes Summary: Most likely arthritis at the costochondral joint. Lexiscan Cardiolite showed no areas of reversible ischemia. (2) PAF (paroxysmal atrial fibrillation) Is this a current diagnosis for this admission?: Yes Summary: Has remained in sinus rhythm here. 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 (4) Chronic kidney disease Is this a current diagnosis for this admission?: Yes Summary: Stable stage III (5) Coronary artery disease Is this a current diagnosis for this admission?: Yes (6) Diabetes Is this a current diagnosis for this admission?: Yes Summary: Stable on home medications. Continue (7) Hypertension Is this a current diagnosis for this admission?: Yes Summary: Well-controlled on home medications (8) Morbid obesity with BMI of 40.0-44.9, adult Is this a current diagnosis for this admission?: Yes - Additional Information Resuscitation Status: Full Code Discharge Diet: Cardiac, Diabetic Discharge Activity: Activity As Tolerated History of Present Illness Patient complains of: Chest pain History of Present Illness: PREETI MELENDREZ is a 82 year old male who comes into the emergency department complaining of left-sided chest pain. 3 out of 10 in severity, no radiation, no relation to activity, no relation to eating, no relation to position. It was unaffected by nitro. He has a history of coronary artery disease and is had 3 stents, as well as a recent admission for paroxysmal atrial fibrillation that spontaneously converted to sinus rhythm. He states that he has lower extremity edema that is not significantly changed. He denies any cough, change in his chronic dyspnea on exertion. He states he has been taking his medication as directed. Hospital Course Hospital Course: He was monitored on telemetry, serial cardiac enzymes were negative 3, home medications were continued, and this morning he underwent a Lexiscan Cardiolite. The results showed no areas of possible ischemia and no areas of scar. Physical Exam Vital Signs: Temp Pulse Resp BP Pulse Ox 97.9 F 90 18 116/50 L 96 01/14/18 14:27 01/14/18 14:27 01/14/18 14:27 01/14/18 14:27 01/14/18 14:27 Intake & Output 01/13/18 01/14/18 01/15/18 05:59 05:59 05:59 Intake Total 250 5 Balance 250 5 Weight 252 lb 13.923 oz 252 lb 13.923 oz General appearance: PRESENT: no acute distress, obese Respiratory exam: PRESENT: clear to auscultation racheal Cardiovascular exam: PRESENT: RRR GI/Abdominal exam: PRESENT: soft. ABSENT: tenderness Neurological exam: PRESENT: alert Psychiatric exam: PRESENT: appropriate affect Skin exam: PRESENT: warm Results Laboratory Results: 01/14/18 07:45 01/14/18 07:45 Sodium 145.8 H Potassium 4.4 Chloride 105 Carbon Dioxide 28 Anion Gap 13 BUN 27 H Creatinine 1.46 H Est GFR ( Amer) 56 L Est GFR (Non-Af Amer) 46 L Glucose 172 H Calcium 9.3 Phosphorus 3.7 Magnesium 2.3 Albumin 4.1 01/13/18 01/14/18 01/14/18 19:10 01:07 07:45 Troponin I 0.028 0.025 NT-Pro-B Natriuret Pep 184 01/14/18 07:45 Troponin I 0.023 NT-Pro-B Natriuret Pep Impressions: Chest X-Ray 01/13/18 14:59 IMPRESSION: In the appropriate clinical setting, subtle findings may represent a developing right lower lobe pneumonia. Qualifiers - * PATIENT BEING DISCHARGED WITH ANY OF THE FOLLOWING DIAGNOSIS: No
[2018-01-15] MEDS ORDERED: FAMOTIDINE 20 MG TABLET PO SCH (10:00)
== END 2018-01-14 14:45 | disposition home or self-care (01) ==
LOC: ER 14:52 → INTOOBSV 17:05 → EH 17:05 → OBSVTOIN 17:05 → 4N 19:51
PROVIDERS: ADMIT Internal Medicine; ATTEND Internal Medicine
DX: R07.89 Other chest pain (principal); I48.0 Paroxysmal atrial fibrillation; I13.0 Hypertensive heart and chronic kidney disease with heart failure and stage 1 through stage 4 chronic kidney disease, or unspecified chronic kidney disease; I50.32 Chronic diastolic (congestive) heart failure; N18.3 Chronic kidney disease, stage 3 (moderate); E11.22 Type 2 diabetes mellitus with diabetic chronic kidney disease; I25.10 Atherosclerotic heart disease of native coronary artery without angina pectoris; E66.01 Morbid (severe) obesity due to excess calories; Z68.41 Body mass index [BMI] 40.0-44.9, adult; Z95.5 Presence of coronary angioplasty implant and graft; Z87.891 Personal history of nicotine dependence; Z82.49 Family history of ischemic heart disease and other diseases of the circulatory system; Z79.02 Long term (current) use of antithrombotics/antiplatelets; Z79.4 Long term (current) use of insulin; Z79.899 Other long term (current) drug therapy
CPT/HCPCS: 93005; 99285; 96374; 96375; 80069; 36415 ×2; 82553; 82962 ×2; 82550; 83735; 85025; 80053; 84484 ×2; 83880; 93017; 71045; 78452; 93010; G0378 ×3; A9500; J2785; A9270 ×7; J1940 ×2; J2270; Q9969; J1815

== ENCOUNTER 2018-06-30 23:08 | Inpatient (IN) | payer MEDICARE, MEDICAID ==
[2018-06-30] MEDS ORDERED: DILTIAZEM HCL/D5W 125 MG/125 ML RTUINJ IV PRN (23:21)
--- NOTE | 2018-06-30 23:24 | ER Document Report ---
ED General - General Chief Complaint: Palpitations Stated Complaint: CHEST TIGHTNESS Time Seen by Provider: 06/30/18 23:21 Notes: Patient is a pleasant 83-year-old male with a history of atrial fibrillation was on Eliquis, carvedilol, and diltiazem. He presents because he felt his heart racing while he was doing the laundry. Continued and he felt short of breath with and therefore call in a months. No associated chest pain. No fevers. No other complaints at this time. He says he took both his morning and nighttime medicines today and has not missed anything. In a months his heart rate was in the 170s before they gave him 24 mg of Cardizem IV. His heart rate is now in the 120s. He says his shortness of breath is improved with his heart rate being in the 120s. He is followed by Dr. Nancy edward in [place]. No fevers. No recent infections. No other complaints at this time. TRAVEL OUTSIDE OF THE [place] IN LAST 30 DAYS: No - Related Data Allergies/Adverse Reactions: amoxicillin Allergy (Verified 11/28/17 16:48) divalproex sodium [From Depakote] Allergy (Verified 11/28/17 16:48) levofloxacin [From Levaquin] Allergy (Verified 11/28/17 16:48) Past Medical History - Social History Smoking Status: Unknown if Ever Smoked Frequency of alcohol use: None Drug Abuse: None Family History: CAD - Mother at about 65, CVA - Father in his 50s, Hypertension Patient has suicidal ideation: No Patient has homicidal ideation: No - Past Medical History Cardiac Medical History: Reports: Hx Atrial Fibrillation, Hx Congestive Heart Failure, Hx Coronary Artery Disease, Hx Hypertension Endocrine Medical History: Reports: Hx Diabetes Mellitus Type 2 Renal/ Medical History: Denies: Hx Peritoneal Dialysis GI Medical History: Reports: Hx Gastroesophageal Reflux Disease Psychiatric Medical History: Denies: Hx Dementia Past Surgical History: Reports: Hx Cardiac Catheterization, Hx Coronary Stent - Immunizations Hx Pneumococcal Vaccination: 05/30/17 Review of Systems - Review of Systems Notes: My Normal Review Basic REVIEW OF SYSTEMS: CONSTITUTIONAL : Denies fever, chills, or sweats. Denies recent illness. EENT: Denies eye, ear, throat, or mouth pain or symptoms. Denies nasal or sinus congestion. CARDIOVASCULAR: Denies chest pain. Rapid heartbeat RESPIRATORY: Some dyspnea GASTROINTESTINAL: Denies abdominal pain. Denies nausea, vomiting, or diarrhea. MUSCULOSKELETAL: Denies neck or back pain or joint pain or swelling. SKIN: Denies rash or skin lesions. NEUROLOGICAL: Denies altered mental status or loss of consciousness. Denies headache. Denies weakness or paralysis or loss of use of either side. Denies problems with gait or speech. Denies sensory or motor loss. ALL OTHER SYSTEMS REVIEWED AND NEGATIVE. Physical Exam - Vital signs Vitals: Temp Resp Pulse Ox 98.7 F 16 98 06/30/18 23:17 06/30/18 23:17 06/30/18 23:17 - Notes Notes: General Appearance: Well nourished, alert, cooperative, no acute distress, no obvious discomfort. Well-appearing. Vitals: reviewed, See vital signs table. Head: no swelling or tenderness to the head Eyes: PERRL, EOMI, Conjuctiva clear Lungs: No wheezing, No rales, No rhonci, No accessory muscle use, good air exchange bilaterally. Heart: Rapid heart rate. Irregular rhythm. Abdomen: Normal BS, soft, No rigidity, No abdominal tenderness, No guarding, no rebound, no abdominal masses, no organomegaly Extremities: good pulses in all extremities, no swelling or tenderness in the extremities, no edema. Skin: warm, dry, appropriate color Neuro: speech clear, oriented x 3, normal affect, responds appropriately to questions. Course - Re-evaluation Re-evalutation: 07/01/18 01:49 We still do not have the Cardizem drip. It has been ordered well over an hour ago. Apparently there is no pre-make a Cardizem drip in the house. The nurses are no longer allowed to mix Cardizem drip and has to be done by pharmacist which we do not have at nighttime to. We therefore had to call in the pharmacist who is apparently on their way to make the Cardizem drip. 07/01/18 02:45 Cardizem drip has been started. Patient's heart rate is now much more stable. His heart rate is staying in the 80s while on the Cardizem drip. I did do a prolonged period time of giving the Lopressor as well as a Cardizem is given by the paramedics hoping that those pulses would make his heart rate stayed below 100 but unfortunately his heart rate even at rest would eventually go into the 110s to 120s and therefore Cardizem drip was needed to be started and patient will require admission. I did speak with the hospitalist, Dr. Osei, who agrees to admit the patient. Dictation of this chart was performed using voice recognition software; therefore, there may be some unintended grammatical errors. - Vital Signs Vital signs: Temp Pulse Resp BP Pulse Ox 98.7 F 15 116/65 96 06/30/18 23:17 07/01/18 01:01 07/01/18 01:01 07/01/18 01:01 - Laboratory Result Diagrams: 06/30/18 23:20 06/30/18 23:20 Laboratory results interpreted by me: 06/30/18 06/30/18 23:20 23:20 RDW 14.4 H BUN 23 H Creatinine 1.35 H Est GFR (Non-Af Amer) 51 L Glucose 185 H - EKG Interpretation by Me Additional EKG results interpreted by me: 06/30/18 23:28 EKG is reviewed and interpreted by me. EKG shows A. fib with a rate of [address] segment elevation or depression. No ischemic T wave inversions. QRS duration is within normal range. QT interval slightly prolonged. Discharge - Discharge Clinical Impression: A-fib Qualifiers: Atrial fibrillation type: chronic Qualified Code(s): I48.2 - Chronic atrial fibrillation Condition: Stable Disposition: ADMITTED INPATIENT Admitting Provider: Hospitalist Unit Admitted: IMCU Referrals: LINNEA BLACK PA [Primary Care Provider] - Follow up as needed
[2018-06-30 23:54] LABS: ABSOLUTE BASOPHILS # (AUTO) 0.1 10^3/uL (0.0-0.2); ABSOLUTE EOSINOPHILS # (AUTO) 0.3 10^3/uL (0.0-0.6); ABSOLUTE LYMPHOCYTES (AUTO) 2.3 10^3/uL (0.5-4.7); ABSOLUTE MONOCYTES (AUTO) 1.2 10^3/uL (0.1-1.4); ABSOLUTE NEUT (AUTO) 6.3 10^3/uL (1.7-8.2); BASOPHILS % (AUTO) 0.7 % (0-2); EOSINOPHILS % (AUTO) 2.5 % (0-6); HEMATOCRIT 45.3 % (37.9-51.0); HEMOGLOBIN 15.4 g/dL (13.5-17.0); LYMPHOCYTES % (AUTO) 22.3 % (13-45); MEAN CORPUSCULAR HEMOGLOBIN 32.8 pg (27.0-33.4); MEAN CORPUSCULAR HGB CONC 33.9 g/dL (32.0-36.0); MEAN CORPUSCULAR VOLUME 97 fl (80-97); MONOCYTES % (AUTO) 12.3 % (3-13); PLATELET COUNT 239 10^3/uL (150-450); RED BLOOD COUNT 4.68 10^6/uL (4.35-5.55); RED CELL DISTRIBUTION WIDTH 14.4 % (11.5-14.0); SEGMENTED NEUTROPHILS % (AUTO) 62.2 % (42-78); TOTAL CELLS COUNTED % (AUTO) 100 %; WHITE BLOOD COUNT 10.1 10^3/uL (4.0-10.5)
--- NOTE | 2018-07-01 00:19 | RADIOLOGY REPORT (SQ) ---
CLINICAL HISTORY: dyspnea COMPARISON: None. 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 Lungs are clear without consolidation, atelectasis, mass or edema. There is no pleural effusion. There is no pneumothorax. There are no acute osseous findings. IMPRESSION: Clear lungs.
[2018-07-01 00:20] LABS: ALANINE AMINOTRANSFERASE 41 U/L (21-72); ALBUMIN 4.2 g/dL (3.5-5.0); ALKALINE PHOSPHATASE 75 U/L (38-126); ANION GAP 13 (5-19); ASPARTATE AMINO TRANSFERASE 40 U/L (17-59); BILIRUBIN,DIRECT 0.2 mg/dL (0.0-0.4); BILIRUBIN,TOTAL 0.3 mg/dL (0.2-1.3); BLOOD UREA NITROGEN 23 mg/dL (7-20); CALCIUM 9.5 mg/dL (8.4-10.2); CARBON DIOXIDE 26 mmol/L (22-30); CHLORIDE 105 mmol/L (98-107); GLUCOSE 185 mg/dL (75-110); POTASSIUM 4.3 mmol/L (3.6-5.0); SODIUM 144.4 mmol/L (137-145); TOTAL PROTEIN 7.2 g/dL (6.3-8.2)
[2018-07-01] MEDS ORDERED: METOPROLOL TARTRATE PF/INJ 5 MG/5 ML SDV IV ONE (00:32)
[2018-07-01] MEDS ORDERED: DILTIAZEM HCL/D5W 125 MG/125 ML RTUINJ IV ONE (01:56)
[2018-07-01] MEDS ORDERED: DEXTROSE 40% GEL 15 GM TUBE PO PRN ×2 (02:44)
[2018-07-01] MEDS ORDERED: DEXTROSE 50%-WATER 25 GM/50 ML DISP.SYRIN IV PRN ×2 (02:44)
[2018-07-01] MEDS ORDERED: METOPROLOL TARTRATE PF/INJ 5 MG/5 ML SDV IV PRN (02:44)
[2018-07-01] MEDS ORDERED: GLUCAGON,HUMAN RECOMB 1 MG INJ IM PRN (02:44)
[2018-07-01] MEDS: DILTIAZEM HCL/D5W 125 MG/125 ML RTUINJ IV PRN ×2 (03:08→11:27)
--- NOTE | 2018-07-01 03:42 | PDOC H&P ---
History of Present Illness Admission Date/PCP: 07/01/18 03:07 ENMANUEL HYLTON Patient complains of: Palpitations History of Present Illness: PREETI MELENDREZ is a 83 year old male with a past medical history of coronary artery disease with 3 stents, BPH, hypertension, dyslipidemia, diabetes and A. fib with RVR on Eliquis, Cardizem and Coreg. He presents with 2 hours of palpitations checking his heart rate finding in the 160s prompting evaluation in the emergency room via EMS in route he received Cardizem 25 IV followed by IV drip. Patient currently denies chest pain nausea vomiting diaphoresis. Patient had complained of sinus congestion prompting him to use an over-the- counter nasal spray decongestant. His rate is currently controlled in the low 100s on IV Cardizem and he is referred to the hospitalist for admission. Patient denies missing any regular medications Past Medical History Cardiac Medical History: Reports: Atrial Fibrillation, Congestive Heart Failure , Coronary Artery Disease, Hypertension Endocrine Medical History: Reports: Diabetes Mellitus Type 2 GI Medical History: Reports: Gastroesophageal Reflux Disease Psychiatric Medical History: Denies: Dementia Past Surgical History Past Surgical History: Reports: Cardiac Catheterization, Coronary Stent Social History Information Source: Patient Smoking Status: Unknown if Ever Smoked Frequency of Alcohol Use: None Drugs: None - Advance Directive Resuscitation Status: Full Code Family History Family History: CAD - Mother at about 65, CVA - Father in his 50s, Hypertension Parental Family History Reviewed: Yes Children Family History Reviewed: Yes Sibling(s) Family History Reviewed.: Yes Medication/Allergy Home Medications: Apixaban [Eliquis 2.5 mg Tablet] 2.5 mg PO BID 01/14/18 Carvedilol [Coreg 12.5 mg Tablet] 12.5 mg PO Q12 01/14/18 Diltiazem HCl [Cardizem Cd 180 mg Capsule] 1 cap.sr PO DAILY 01/14/18 Furosemide [Lasix 40 mg Tablet] 40 mg PO QAM 01/14/18 Furosemide [Lasix 40 mg Tablet] 40 mg PO QPM 01/14/18 Insulin Detemir [Levemir Flextouch] 58 unit SQ QAM 01/14/18 Insulin Detemir [Levemir Flextouch] 61 unit SQ QPM 01/14/18 Lisinopril 40 mg PO DAILY 01/14/18 Multivitamin [Multiple Vitamins] 1 each PO DAILY 01/14/18 Omeprazole 40 mg PO DAILY 01/14/18 Rosuvastatin Calcium [Crestor 10 mg Tablet] 10 mg PO DAILY 01/14/18 Allergies/Adverse Reactions: amoxicillin Allergy (Verified 11/28/17 16:48) divalproex sodium [From Depakote] Allergy (Verified 11/28/17 16:48) levofloxacin [From Levaquin] Allergy (Verified 11/28/17 16:48) Review of Systems Constitutional: ABSENT: chills, fever(s), headache(s), weight gain, weight loss Eyes: ABSENT: visual disturbances Ears: ABSENT: hearing changes Cardiovascular: ABSENT: chest pain, dyspnea on exertion, edema, orthropnea, palpitations Respiratory: ABSENT: cough, hemoptysis Gastrointestinal: ABSENT: abdominal pain, constipation, diarrhea, hematemesis, hematochezia, nausea, vomiting Genitourinary: ABSENT: dysuria, hematuria Musculoskeletal: ABSENT: joint swelling Integumentary: ABSENT: rash, wounds Neurological: ABSENT: abnormal gait, abnormal speech, confusion, dizziness, focal weakness, syncope Psychiatric: ABSENT: anxiety, depression, homidical ideation, suicidal ideation Endocrine: ABSENT: cold intolerance, heat intolerance, polydipsia, polyuria Hematologic/Lymphatic: ABSENT: easy bleeding, easy bruising Physical Exam Vital Signs: Temp Pulse Resp BP Pulse Ox 98.7 F 10 L 127/66 H 96 06/30/18 23:17 07/01/18 03:00 07/01/18 02:01 07/01/18 03:00 General appearance: PRESENT: no acute distress, well-developed, well-nourished Head exam: PRESENT: atraumatic, normocephalic Eye exam: PRESENT: conjunctiva pink, EOMI, PERRLA. ABSENT: scleral icterus Ear exam: PRESENT: normal external ear exam Mouth exam: PRESENT: moist, tongue midline Neck exam: ABSENT: carotid bruit, JVD, lymphadenopathy, thyromegaly Respiratory exam: PRESENT: clear to auscultation racheal. ABSENT: rales, rhonchi, wheezes Cardiovascular exam: PRESENT: tachycardia. ABSENT: diastolic murmur, rubs, systolic murmur Pulses: PRESENT: normal dorsalis pedis pul Vascular exam: PRESENT: normal capillary refill GI/Abdominal exam: PRESENT: normal bowel sounds, soft. ABSENT: distended, guarding, mass, organolmegaly, rebound, tenderness Rectal exam: PRESENT: deferred Extremities exam: PRESENT: full ROM. ABSENT: calf tenderness, clubbing, pedal edema Neurological exam: PRESENT: alert, awake, oriented to person, oriented to place , oriented to time, oriented to situation, CN II-XII grossly intact. ABSENT: motor sensory deficit Psychiatric exam: PRESENT: appropriate affect, normal mood. ABSENT: homicidal ideation, suicidal ideation Skin exam: PRESENT: dry, intact, warm. ABSENT: cyanosis, rash Results Impressions: Chest X-Ray 06/30/18 23:21 IMPRESSION: Clear lungs. Assessment & Plan - Diagnosis (1) A-fib Qualifiers: Atrial fibrillation type: chronic Qualified Code(s): I48.2 - Chronic atrial fibrillation Is this a current diagnosis for this admission?: Yes Plan: Uncontrolled A. fib likely secondary to [id number] sinus medication use, education, IMCU admission, IV Cardizem transition to p.o. agents, follow-up cardiac enzymes and TSH. (2) Sinusitis Is this a current diagnosis for this admission?: Yes Plan: Flonase and education (3) Diabetes Qualifiers: Is this a current diagnosis for this admission?: Yes Plan: Home regiment with Humalog sliding scale - Time Time Spent: 30 to 50 Minutes - Inpatient Certification Medical Necessity: Need Close Monitoring Due to Risk of Patient Decompensation
[2018-07-01] MEDS ORDERED: FLUTICASONE NASAL SPRAY 50 MCG/SPRY 120 SPRAY/16 GM NASL ONE (04:00)
[2018-07-01 05:39] LABS: ABSOLUTE BASOPHILS # (AUTO) 0.1 10^3/uL (0.0-0.2); ABSOLUTE EOSINOPHILS # (AUTO) 0.2 10^3/uL (0.0-0.6); ABSOLUTE LYMPHOCYTES (AUTO) 2.4 10^3/uL (0.5-4.7); ABSOLUTE MONOCYTES (AUTO) 1.1 10^3/uL (0.1-1.4); ABSOLUTE NEUT (AUTO) 6.5 10^3/uL (1.7-8.2); EOSINOPHILS % (AUTO) 1.6 % (0-6); HEMATOCRIT 46.1 % (37.9-51.0); HEMOGLOBIN 15.5 g/dL (13.5-17.0); LYMPHOCYTES % (AUTO) 23.7 % (13-45); MEAN CORPUSCULAR HEMOGLOBIN 32.4 pg (27.0-33.4); MEAN CORPUSCULAR HGB CONC 33.5 g/dL (32.0-36.0); MEAN CORPUSCULAR VOLUME 97 fl (80-97); MONOCYTES % (AUTO) 10.2 % (3-13); PLATELET COUNT 222 10^3/uL (150-450); RED BLOOD COUNT 4.77 10^6/uL (4.35-5.55); RED CELL DISTRIBUTION WIDTH 14.6 % (11.5-14.0); SEGMENTED NEUTROPHILS % (AUTO) 63.5 % (42-78); TOTAL CELLS COUNTED % (AUTO) 100 %; WHITE BLOOD COUNT 10.3 10^3/uL (4.0-10.5)
[2018-07-01 05:55] LABS: ANION GAP 13 (5-19); BLOOD UREA NITROGEN 24 mg/dL (7-20); CALCIUM 9.4 mg/dL (8.4-10.2); CARBON DIOXIDE 26 mmol/L (22-30); CHLORIDE 105 mmol/L (98-107); CHOLESTEROL 146.78 mg/dL (0-200); GLUCOSE 254 mg/dL (75-110); POTASSIUM 4.5 mmol/L (3.6-5.0); TRIGLYCERIDES 110 mg/dL (<150)
[2018-07-01 06:05] LABS: CREATINE KINASE MB 2.24 ng/mL (<4.55)
[2018-07-01 06:06] LABS: DIRECT LDL 100 mg/dL (<100)
[2018-07-01 06:32] LABS: TROPONIN I 0.052 ng/mL
[2018-07-01] MEDS: INSULIN LISPRO 100 UNIT/ML 3 ML VIAL SUBCUT PRN ×3 (08:00→17:02)
[2018-07-01] MEDS: APIXABAN 2.5 MG TABLET PO SCH ×2 (09:45→17:02)
[2018-07-01] MEDS: CARVEDILOL 12.5 MG TABLET PO SCH ×2 (09:45→22:24)
[2018-07-01] MEDS: DOCUSATE SODIUM 100 MG CAPSULE PO SCH ×2 (09:47→17:02)
[2018-07-01] MEDS: DILTIAZEM HCL 180 MG CAPSULE.CR PO SCH (12:08)
[2018-07-01 12:36] LABS: CREATINE KINASE MB 2.15 ng/mL (<4.55)
[2018-07-01 12:43] LABS: TROPONIN I 0.055 ng/mL
--- NOTE | 2018-07-01 13:26 | Progress Note ---
Provider Note Provider Note: patient seen on rounds this morning. patient admitted after midnight. please see initially H&P for full assessment and plan patient is on cardizem drip- HR is no <110- on 15mg/hr- will wean. called back by nursing this afternoon- he converted to sinus- gave his home dose of cardizem 180 and stop drip. c/w with stephon draper
[2018-07-01 18:26] LABS: CREATINE KINASE MB 2.2 ng/mL (<4.55); TROPONIN I 0.058 ng/mL
[2018-07-01] MEDS: FLUTICASONE NASAL SPRAY 50 MCG/SPRY 120 SPRAY/16 GM NASL SCH (22:24)
[2018-07-02 06:34] LABS: ABSOLUTE BASOPHILS # (AUTO) 0.1 10^3/uL (0.0-0.2); ABSOLUTE EOSINOPHILS # (AUTO) 0.2 10^3/uL (0.0-0.6); ABSOLUTE LYMPHOCYTES (AUTO) 2.1 10^3/uL (0.5-4.7); ABSOLUTE NEUT (AUTO) 5.6 10^3/uL (1.7-8.2); BASOPHILS % (AUTO) 1.2 % (0-2); EOSINOPHILS % (AUTO) 2.5 % (0-6); HEMATOCRIT 41.1 % (37.9-51.0); HEMOGLOBIN 13.9 g/dL (13.5-17.0); LYMPHOCYTES % (AUTO) 23.5 % (13-45); MEAN CORPUSCULAR HEMOGLOBIN 32.6 pg (27.0-33.4); MEAN CORPUSCULAR HGB CONC 33.7 g/dL (32.0-36.0); MEAN CORPUSCULAR VOLUME 97 fl (80-97); MONOCYTES % (AUTO) 10.6 % (3-13); PLATELET COUNT 194 10^3/uL (150-450); RED BLOOD COUNT 4.25 10^6/uL (4.35-5.55); RED CELL DISTRIBUTION WIDTH 14.2 % (11.5-14.0); SEGMENTED NEUTROPHILS % (AUTO) 62.2 % (42-78); TOTAL CELLS COUNTED % (AUTO) 100 %
[2018-07-02 07:34] LABS: ANION GAP 13 (5-19); BLOOD UREA NITROGEN 23 mg/dL (7-20); CALCIUM 9.2 mg/dL (8.4-10.2); CARBON DIOXIDE 25 mmol/L (22-30); CHLORIDE 103 mmol/L (98-107); CHOLESTEROL 136.33 mg/dL (0-200); CREATINE KINASE 135 U/L (55-170); GLUCOSE 287 mg/dL (75-110); POTASSIUM 4.4 mmol/L (3.6-5.0); SODIUM 140.6 mmol/L (137-145); TRIGLYCERIDES 151 mg/dL (<150)
[2018-07-02 07:44] LABS: DIRECT LDL 89 mg/dL (<100)
[2018-07-02 07:52] LABS: VLDL CHOLESTEROL 30.2 mg/dL (10-31)
[2018-07-02] MEDS: INSULIN LISPRO 100 UNIT/ML 3 ML VIAL SUBCUT PRN ×3 (07:54→16:38)
[2018-07-02] MEDS: APIXABAN 2.5 MG TABLET PO SCH ×2 (09:31→17:36)
[2018-07-02] MEDS: CARVEDILOL 12.5 MG TABLET PO SCH ×2 (09:31→21:57)
[2018-07-02] MEDS: FLUTICASONE NASAL SPRAY 50 MCG/SPRY 120 SPRAY/16 GM NASL SCH ×2 (09:31→21:58)
[2018-07-02] MEDS: DOCUSATE SODIUM 100 MG CAPSULE PO SCH ×2 (09:37→17:36)
--- NOTE | 2018-07-02 10:32 | EKG REPORT ---
SEVERITY:- ABNORMAL ECG - SINUS RHYTHM MULTIPLE VENTRICULAR PREMATURE COMPLEXES : Confirmed by: Temitope Florez 02-Jul-2018 10:32:23
[2018-07-02] MEDS: DILTIAZEM HCL 180 MG CAPSULE.CR PO SCH (11:10)
[2018-07-02] MEDS ORDERED: RANOLAZINE 500 MG TAB.SR.12H PO ONE (12:02)
--- NOTE | 2018-07-02 12:02 | PDOC CONSULTATION ---
Consultation Consult Date: 07/02/18 Attending physician:: CARLOS ROBERSON Consult reason:: Troponin I elevation and chest pain History of Present Illness Admission Date/PCP: 07/01/18 03:07 ENMANUEL HYLTON Patient complains of: Palpitations History of Present Illness: PREETI MELENDREZ is a 83 year old male with a past medical history of coronary artery disease with 3 stents, BPH, hypertension, dyslipidemia, diabetes and A. fib with RVR on Eliquis, Cardizem and Coreg. He presents with 2 hours of palpitations checking his heart rate finding in the 160s prompting evaluation in the emergency room via EMS in route he received Cardizem 25 IV followed by IV drip. Patient currently denies chest pain nausea vomiting diaphoresis. Patient had complained of sinus congestion prompting him to use an over-the- counter nasal spray decongestant. His rate is currently controlled in the low 100s on IV Cardizem and he is referred to the hospitalist for admission. Patient denies missing any regular medications. Patient has been noted to have some chest discomfort in between his shoulder blades. His troponin I has come back mildly abnormal. Today patient converted to sinus rhythm. I been asked to evaluate him because of abnormal troponin I, in between shoulder blade chest pain in view of known history of CAD. Past Medical History Cardiac Medical History: Reports: Atrial Fibrillation, Congestive Heart Failure , Coronary Artery Disease, Hypertension Endocrine Medical History: Reports: Diabetes Mellitus Type 2 GI Medical History: Reports: Gastroesophageal Reflux Disease Psychiatric Medical History: Denies: Dementia, Depression Past Surgical History Past Surgical History: Reports: Cardiac Catheterization, Coronary Stent Social History Information Source: Patient Smoking Status: Former Smoker Last Time Smoked: 1992 Frequency of Alcohol Use: None Hx Recreational Drug Use: No Drugs: None Hx Prescription Drug Abuse: No - Advance Directive Resuscitation Status: Full Code Family History Family History: CAD - Mother at about 65, CVA - Father in his 50s, Hypertension Parental Family History Reviewed: Yes Children Family History Reviewed: Yes Sibling(s) Family History Reviewed.: Yes Medication/Allergy Home Medications: Apixaban [Eliquis 2.5 mg Tablet] 2.5 mg PO Q12 01/14/18 Carvedilol [Coreg 12.5 mg Tablet] 12.5 mg PO Q12 01/14/18 Diltiazem HCl [Cardizem Cd 180 mg Capsule] 1 cap.sr PO DAILY@1100 01/14/18 Furosemide [Lasix 40 mg Tablet] 40 mg PO QAM 01/14/18 Furosemide [Lasix 40 mg Tablet] 40 mg PO QPM 01/14/18 Insulin Detemir [Levemir Flextouch] 58 unit SQ QAM 01/14/18 Insulin Detemir [Levemir Flextouch] 61 unit SQ QPM 01/14/18 Lisinopril 40 mg PO DAILY 01/14/18 Multivitamin [Multiple Vitamins] 1 each PO DAILY 01/14/18 Omeprazole 40 mg PO DAILY 01/14/18 Rosuvastatin Calcium [Crestor 10 mg Tablet] 10 mg PO DAILY 01/14/18 Insulin Aspart [Novolog Flexpen] 0 unit SUBCUT .SLD SCALE 07/01/18 Allergies/Adverse Reactions: amoxicillin Allergy (Verified 11/28/17 16:48) atorvastatin [From Lipitor] Allergy (Verified 07/01/18 04:44) divalproex sodium [From Depakote] Allergy (Verified 11/28/17 16:48) levofloxacin [From Levaquin] Allergy (Verified 11/28/17 16:48) liraglutide [From Victoza] Allergy (Verified 07/01/18 04:44) metformin [From Janumet] Allergy (Verified 07/01/18 04:44) simvastatin [From Zocor] Allergy (Verified 07/01/18 04:44) sitagliptin [From Janumet] Adverse Reaction (Verified 07/01/18 04:45) kidney issues Review of Systems Review of Systems: Please see history of present illness and past medical history as wall. Constitutional: No fever or chills reported. Head : No recent chronic headaches, recent head injury. Eyes: No recent eye pain, diplopia, redness, discharge, acute visual changes. Ears: No recent chronic ear pain, acute hearing loss, ear discharge. Oral cavity: No recent ulcerations, bleeding, oral cavity discomfort. Neck: No recent acute neck pain reported. Hematologic: No recent easy bruising or bleeding. Lymphatic: No recent lymph node enlargement reported. Cardiovascular system review: See history of present illness. Respiratory system review: No hemoptysis or blood clots in the lungs reported. Mild Shortness of breath on exertion Gastrointestinal system review: Negative for any recent acute hematemesis, melena. Genitourinary system review: No recent acute or chronic hematuria, flank pain, UTI etc. reported. Skin system review: Negative for any recent abnormal bruising, no rash, no pruritus reported. Neurologic: No prior history of strokes, mini strokes, seizure disorder. Psychologic: No history of major psychosis or major depression reported. Musculoskeletal: Minor aches and pains reported. No acute joint swelling reported. Endocrine: No recent polyuria, polydipsia, recent heat or cold intolerance. Physical Exam Vital Signs: Temp Pulse Resp BP Pulse Ox 97.9 F 70 16 130/64 H 97 07/02/18 07:25 07/02/18 07:25 07/02/18 07:25 07/02/18 07:25 07/02/18 07:25 Intake & Output 07/01/18 07/02/18 07/03/18 06:59 06:59 06:59 Intake Total 14 1341 350 Output Total 0 Balance 14 1341 350 Weight 117.2 kg 116 kg Exam: GENERAL: well-nourished and in no acute distress. Alert and oriented x3 HEAD: Atraumatic, normocephalic. EYES: ISRA, sclera anicteric, conjunctiva are normal. ENT: Moist mucous membranes. No oral ulcerations or bleeding gums noted. No obvious ear, nose or throat abnormalities noted. NECK: supple without lymphadenopathy. Trachea is central. No cervical or axillary lymphadenopathy noted. Carotids are 2+, JVD WNL LUNGS: Breath sounds clear bilaterally. No wheezes rales or rhonchi noted. No significant dullness noted on percussion. CHEST: Palpation of the chest wall shows no significant chest wall tenderness. HEART: [employer]ENTAT[employer], No PSH, 1/6 [place] aortic area, 1/6 richards systolic murmur mitral area, no rubs, no gallops. ABDOMEN: Soft, no significant tenderness appreciated, normoactive bowel sounds. No guarding, no rebound. No rigidity noted . No masses appreciated. EXTREMITIES: Pedal pulses are 1-2+, no calf tenderness noted. No clubbing or cyanosis. negative pedal edema noted NEUROLOGICAL: Focused neurological exam showed no significant neurologic deficit. Normal speech, no focal weakness appreciated. PSYCH: Normal mood, normal affect. Judgment and insight within normal limits. SKIN: No significant ecchymosis, skin is noted to be warm. MUSCULOSKELETAL EXAM: No significant acute joint swelling noted. Results Laboratory Results: 07/02/18 06:22 07/02/18 06:22 07/02/18 07/02/18 06:22 06:22 WBC 9.0 RBC 4.25 L Hgb 13.9 Hct 41.1 MCV 97 MCH 32.6 MCHC 33.7 RDW 14.2 H Plt Count 194 Seg Neutrophils % 62.2 Lymphocytes % 23.5 Monocytes % 10.6 Eosinophils % 2.5 Basophils % 1.2 Absolute Neutrophils 5.6 Absolute Lymphocytes 2.1 Absolute Monocytes 1.0 Absolute Eosinophils 0.2 Absolute Basophils 0.1 Sodium 140.6 Potassium 4.4 Chloride 103 Carbon Dioxide 25 Anion Gap 13 BUN 23 H Creatinine 1.29 H Est GFR ( Amer) > 60 Est GFR (Non-Af Amer) 53 L Glucose 287 H Calcium 9.2 Triglycerides 151 H Cholesterol 136.33 LDL Cholesterol Direct 89 VLDL Cholesterol 30.2 HDL Cholesterol 26 L 07/01/18 07/01/18 07/01/18 05:30 11:50 17:35 Creatine Kinase CK-MB (CK-2) 2.24 2.15 2.20 Troponin I 0.052 0.055 0.058 07/02/18 07/02/18 00:37 06:22 Creatine Kinase 135 CK-MB (CK-2) Troponin I 0.059 EKG Comments: Sinus rhythm, multiple VPCs noted. No acute ST-T wave changes are noted. Impressions: Chest X-Ray 06/30/18 23:21 IMPRESSION: Clear lungs. Assessment & Plan - Diagnosis (1) Chest pain Qualifiers: Chest pain type: unspecified Qualified Code(s): R07.9 - Chest pain, unspecified Is this a current diagnosis for this admission?: Yes (2) Coronary artery disease Qualifiers: Coronary Disease-Associated Artery/Lesion type: [place] artery [place] vs. transplanted heart: [place] heart Associated angina: angina presence unspecified Qualified Code(s): I25.10 - Atherosclerotic heart disease of [place] coronary artery without angina pectoris (3) Hypertension Qualifiers: Hypertension type: essential hypertension Qualified Code(s): I10 - Essential (primary) hypertension Is this a current diagnosis for this admission?: Yes (4) PAF (paroxysmal atrial fibrillation) Is this a current diagnosis for this admission?: Yes (5) Obesity Qualifiers: Obesity type: unspecified obesity type Obesity classification: unspecified obesity classification Is this a current diagnosis for this admission?: Yes (6) Diabetes Qualifiers: Diabetes mellitus type: type 2 Diabetes mellitus intermediate insulin use: unspecified terminal superintendent insulin use status Diabetes mellitus complication status : with unspecified complications Qualified Code(s): E11.8 - Type 2 diabetes mellitus with unspecified complications Is this a current diagnosis for this admission?: Yes - Notes Notes: Chest pain: Patient has known history of coronary artery disease with prior stent placement. At this point will optimize medical management of underlying CAD. Chest pain could have been precipitated by atrial fibrillation. Will recommend repeating EKGs. Coronary artery disease: Patient status post stent placement. Recommend statin therapy, antiplatelet therapy with either aspirin or Plavix, MARIVEL inhibitor/ARB and beta-cari therapy. Hypertension: Blood pressure goal should be 135/85 ideally in patient with CAD but patient is elderly therefore a more liberal goal of 140/90 can be undertaken in this patient. Paroxysmal atrial fibrillation: Could have been precipitated by decongestant use but patient may also have underlying sleep apnea syndrome which can precipitate atrial fibrillation. Recommend that patient be referred for sleep evaluation. Obesity: Patient will benefit from gradual weight loss. However at patient's age, its fitness which is more important than weight loss. Diabetes: Being expertly managed by hospitalist. Further management as an outpatient by case reviewer. Have ordered a 2D echo to look for any wall motion abnormalities. Have not scheduled a stress test since patient had one done in December which was negative. Will place patient on Ranexa as this has some data supporting prevention of atrial fibrillation. Ranexa may also help with diabetes management. - Time Time Spent: 30 to 50 Minutes - More than 50% of the time spent coordinating care , discussing management plans with involved caregivers. Management plans discussed with involved personnels. Medical decision making was of moderate to high complexity, patient's has multiple comorbidities. Medications reviewed and adjusted accordingly: Yes
--- NOTE | 2018-07-02 12:33 | PDOC PROGRESS REPORT ---
Subjective Progress Note for:: 07/02/18 - seen on rounds this morning Subjective:: states he feels better today- states he wants to know when he can go home. discussed in detail about his troponins and need to stay. i have also consulted cardiology to discuss about this elevated troponins- he's agreeable to stay. this morning he tells me that he has been having some back pain along with this palpations- he tells me that he forgot to tell me earlier. Reason For Visit: AFIB DIABETES Physical Exam Vital Signs: Temp Pulse Resp BP Pulse Ox 97.9 F 74 16 147/74 H 97 07/02/18 11:02 07/02/18 11:02 07/02/18 11:02 07/02/18 11:02 07/02/18 11:02 Intake & Output 07/01/18 07/02/18 07/03/18 06:59 06:59 06:59 Intake Total 14 1341 350 Output Total 0 Balance 14 1341 350 Weight 258 lb 6.108 oz 255 lb 11.779 oz General appearance: PRESENT: no acute distress Head exam: PRESENT: atraumatic, normocephalic Eye exam: PRESENT: EOMI, PERRLA. ABSENT: scleral icterus Ear exam: PRESENT: normal external ear exam Mouth exam: PRESENT: tongue midline Neck exam: ABSENT: tracheal deviation Respiratory exam: PRESENT: clear to auscultation racheal, symmetrical. ABSENT: wheezes Cardiovascular exam: PRESENT: +S1, +S2 Pulses: PRESENT: +2 pedal pulses bilateral GI/Abdominal exam: PRESENT: normal bowel sounds, soft. ABSENT: tenderness Extremities exam: ABSENT: pedal edema Musculoskeletal exam: PRESENT: full ROM. ABSENT: tenderness Neurological exam: PRESENT: alert, awake, oriented to person, oriented to place , oriented to time, oriented to situation, CN II-XII grossly intact Skin exam: PRESENT: dry, warm Results Laboratory Results: 07/02/18 06:22 07/02/18 06:22 07/02/18 07/02/18 06:22 06:22 WBC 9.0 RBC 4.25 L Hgb 13.9 Hct 41.1 MCV 97 MCH 32.6 MCHC 33.7 RDW 14.2 H Plt Count 194 Seg Neutrophils % 62.2 Lymphocytes % 23.5 Monocytes % 10.6 Eosinophils % 2.5 Basophils % 1.2 Absolute Neutrophils 5.6 Absolute Lymphocytes 2.1 Absolute Monocytes 1.0 Absolute Eosinophils 0.2 Absolute Basophils 0.1 Sodium 140.6 Potassium 4.4 Chloride 103 Carbon Dioxide 25 Anion Gap 13 BUN 23 H Creatinine 1.29 H Est GFR ( Amer) > 60 Est GFR (Non-Af Amer) 53 L Glucose 287 H Calcium 9.2 Triglycerides 151 H Cholesterol 136.33 LDL Cholesterol Direct 89 VLDL Cholesterol 30.2 HDL Cholesterol 26 L 07/01/18 07/01/18 07/01/18 05:30 11:50 17:35 Creatine Kinase CK-MB (CK-2) 2.24 2.15 2.20 Troponin I 0.052 0.055 0.058 07/02/18 07/02/18 00:37 06:22 Creatine Kinase 135 CK-MB (CK-2) Troponin I 0.059 Impressions: Chest X-Ray 06/30/18 23:21 IMPRESSION: Clear lungs. Assessment & Plan - Diagnosis (1) Atrial fibrillation with RVR Is this a current diagnosis for this admission?: Yes (2) Elevated troponin Is this a current diagnosis for this admission?: Yes (3) Obesity Qualifiers: Obesity type: unspecified obesity type Obesity classification: unspecified obesity classification Is this a current diagnosis for this admission?: Yes (5) Chronic kidney disease Qualifiers: Chronic kidney disease stage: stage 3 (moderate) Qualified Code(s): N18.3 - Chronic kidney disease, stage 3 (moderate) Is this a current diagnosis for this admission?: Yes (6) Coronary artery disease Qualifiers: Coronary Disease-Associated Artery/Lesion type: [place] artery [place] vs. transplanted heart: [place] heart Associated angina: angina presence unspecified Qualified Code(s): I25.10 - Atherosclerotic heart disease of [place] coronary artery without angina pectoris Is this a current diagnosis for this admission?: Yes (7) Diabetes Qualifiers: Diabetes mellitus type: type 2 Diabetes mellitus residential insulin use: unspecified terminal operator insulin use status Diabetes mellitus complication status : with unspecified complications Qualified Code(s): E11.8 - Type 2 diabetes mellitus with unspecified complications Is this a current diagnosis for this admission?: Yes (8) Hypertension Qualifiers: Hypertension type: essential hypertension Qualified Code(s): I10 - Essential (primary) hypertension Is this a current diagnosis for this admission?: Yes (9) PAF (paroxysmal atrial fibrillation) Is this a current diagnosis for this admission?: Yes - Time Time Spent with patient: 35 or more minutes Within: within 48 hours - Plan Summary Plan Summary: Atrial fib w/ rvr- resolved- was on cardizem drip initially. he converted to sinus rhythm yesterday- started him back on his home med of cardizem and metoprolol. c/w eliquis. I did order a new ECHO today and consulted cardiology history of PAF- see plan above Elevated troponin- no acute EKG changes noted- AM ekg pending. i think this is all demand mismatch with troponin leak. i have consulted Cardiology today- i spoke with Dr Florez. Will order ECHO for now. he did have a cardiolite stress test in 12/2017 and his EF >55%. Chronic diastolic HF- last cardiolite stress was in 12/2017 and showed preserved EF >55%. CKD- stage 3- at baseline CAD- c/w coreg HTN - noted- stable- will restart his lisinopril but at a lower dose and titrate up to home dose DM- noted- c/w SSI.
[2018-07-02] MEDS: LISINOPRIL 10 MG TABLET PO SCH (12:50)
[2018-07-02] MEDS: MAG HYDROX/AL HYDROX/SIMETH SUSP 30 ML UDCUP PO PRN ×2 (14:46→22:00)
--- NOTE | 2018-07-02 16:41 | RADIOLOGY REPORT (SQ) ---
EXAM DESCRIPTION: CTA CHEST COMPLETED DATE/TIME: 07/02/2018 4:24 pm REASON FOR STUDY: r/o PE and disection COMPARISON: AP chest 06/30/2018 TECHNIQUE: CT scan of the chest performed using helical scanning technique with dynamic intravenous contrast injection. Images reviewed with lung, soft tissue and bone windows. Reconstructed coronal and sagittal MPR images reviewed. Additional 3 dimensional post-processing performed to develop Maximal Intensity Projection images ([place] P). All images stored on PACS. All CT scanners at this facility use dose modulation, iterative reconstruction, and/or weight based d osing when appropriate to reduce radiation dose to as low as reasonably achievable (ALARA). [facility]: Dose Right [facility]: CareDose [facility]: Dose Right [facility]: Teradose 4D [facility]: [employer] CONTRAST TYPE AND DOSE: contrast/concentration: Isovue 350.00 mg/ml; Total Contrast Delivered: 61.0 ml; Total Saline Delivered: 80.0 ml Contrast bolus optimized for the thoracic aorta and, to evaluate for dissection. Suboptimal bolus fo r the pulmonary arteries RENAL FUNCTION: Creatinine 1.3 RADIATION DOSE: CT Rad equipment meets quality standard of care and radiation dose reduction techniq ues were employed. CTDIvol: 15.5 - 39.4 mGy. DLP: 586 mGy-cm. . LIMITATIONS: None. FINDINGS: LUNGS AND PLEURA: No masses, infiltrates, or pneumothorax. No pleural effusions or pleura l calcifications. AORTA AND GREAT VESSELS: No CT angio evidence of thoracic aortic dissection. HEART: No pericardial effusion. Moderate coronary artery calcifications. Stent in the LAD. Calcifie d aortic valve PULMONARY ARTERIES: Limited study due to bolus timing 50 thoracic aorta. No gross embolus in the tyler n pulmonary artery HILAR AND MEDIASTINAL STRUCTURES: Few enlarged lymph nodes are present along the right peritracheal r egion (2.3 x 1.4 cm axial image 26), and precarinal region (2 x 1.4 cm axial image 48) HARDWARE: None in the chest. UPPER ABDOMEN: No significant findings. Limited exam. THYROID AND OTHER SOFT TISSUES: No masses. No adenopathy. BONES: No acute or significant finding. 3D MIPS: Confirm above findings. OTHER: No other significant finding. IMPRESSION: No CT angio evidence of acute thoracic aortic dissection COMMENT: Quality ID # [id number]: Final reports with documentation of one or more dose reduction techniques (e.g., Automated exposure control, adjustment of the mA and/or kV according to patient size, use of iterative reconstruction technique) TECHNICAL DOCUMENTATION: JOB ID: [id number] [employer]- All Rights Reserved Reading location - IP/workstation name: [email or web address]
--- NOTE | 2018-07-02 17:53 | XCELERA REPORT ---
[address] [address] Transthoracic Echocardiogram Report Name: PREETI MELENDREZ Age: 83 yrs Gender: Male : 1935 Patient Status: Inpatient Patient Location: [facility]^A Study Date: 07/02/2018 03:12 PM Height: 68 in Weight: 255 lb BSA: 2.3 m2 Procedure: A complete two-dimensional transthoracic echocardiogram was performed (2D, M-mode, spectral and color flow Doppler). The study was technically difficult with many images being suboptimal in quality. Reason For Study: Chest pain, positive troponin I Ordering Physician: TEMITOPE PIPER Performed By: Ailyn Herrera Interpretation Summary The left ventricular ejection fraction is normal. There is mild concentric left ventricular hypertrophy. The left ventricle is grossly normal size. Doppler measurements suggest pseudonormalized left ventricular relaxation, which is associated with grade II/IV or mild to moderate diastolic dysfunction Wall motion cannot be accurately commented on, but no definite regional wall motion abnormalities noted. Borderline right ventricular enlargement. Borderline right atrial enlargement. The left atrium is moderately dilated. There is a trace amount of mitral regurgitation There is no mitral valve stenosis. No aortic regurgitation is present. There is no aortic valve stenosis There is a mild amount of tricuspid regurgitation There is mild pulmonary hypertension by echo Right ventricular systolic pressure is estimated to be elevated at 30-40mmHg. The aortic root is not well visualized but is probably normal size. The inferior vena cava appeared normal and decreased > 50% with respiration (RAP 5-10 mmHg) There is no pericardial effusion. MMode/2D Measurements & Calculations RVDd: 2.9 cm LVIDd: 4.6 cm FS: 33.2 % Ao root diam: 2.4 cm IVSd: 1.1 cm LVIDs: 3.0 cm EDV(Teich): 95.7 ml Ao root area: 4.7 cm2 LVPWd: 1.1 cm ESV(Teich): 36.4 ml LA dimension: 4.5 cm EF(Teich): 62.0 % Doppler Measurements & Calculations MV E max samantha: MV P1/2t max samantha: Ao V2 max: LV V1 max P.2 cm/sec 139.7 cm/sec 219.5 cm/sec 4.5 mmHg MV A max samantha: MV P1/2t: 86.1 msec Ao max PG: LV V1 max: 72.6 cm/sec MVA(P1/2t): 2.6 cm2 19.3 mmHg 106.6 cm/sec MV E/A: 1.9 MV dec slope: 475.3 cm/sec2 MV dec time: 0.29 sec PA V2 max: TR max samantha: MV P1/2t-pr_phl: 94.8 cm/sec 281.0 cm/sec 86.1 msec PA max P.6 mmHgTR max P.6 mmHg Left Ventricle The left ventricle is grossly normal size. There is mild concentric left ventricular hypertrophy. The left ventricular ejection fraction is normal. Doppler measurements suggest pseudonormalized left ventricular relaxation, which is associated with grade II/IV or mild to moderate diastolic dysfunction. Wall motion cannot be accurately commented on, but no definite regional wall motion abnormalities noted. Right Ventricle Borderline right ventricular enlargement. There is normal right ventricular wall thickness. The right ventricular systolic function is normal. Atria Borderline right atrial enlargement. The left atrium is moderately dilated. Interarterial septum not well visualized and not well dopplered. Cannot comment on ASD/PFO presence. Mitral Valve The mitral valve leaflets are sclerotic, but show no functional abnormalities. There is no mitral valve stenosis. There is a trace amount of mitral regurgitation. Aortic Valve The aortic valve is not well visualized secondary to technical limitations. There is no aortic valve stenosis. No aortic regurgitation is present. Tricuspid Valve The tricuspid valve is not well visualized, but is grossly normal. There is no tricuspid stenosis. There is a mild amount of tricuspid regurgitation. There is mild pulmonary hypertension by echo. Right ventricular systolic pressure is estimated to be elevated at 30-40mmHg. Pulmonic Valve The pulmonic valve is not well visualized. Great Vessels The aortic root is not well visualized but is probably normal size. The inferior vena cava appeared normal and decreased > 50% with respiration (RAP 5-10 mmHg). Effusions There is no pericardial effusion. : TEMITOPE PIPER > Temitope Piper
[2018-07-02] MEDS: RANOLAZINE 500 MG TAB.SR.12H PO SCH (21:57)
[2018-07-02] MEDS: INSULIN DETEMIR 100 UNIT/ML 3 ML PEN SUBCUT SCH (21:58)
[2018-07-03] MEDS ORDERED: LANSOPRAZOLE 30 MG TAB.RAP.DR PO SCH (08:00)
[2018-07-03] MEDS: INSULIN LISPRO 100 UNIT/ML 3 ML VIAL SUBCUT PRN (08:50)
[2018-07-03] MEDS: DOCUSATE SODIUM 100 MG CAPSULE PO SCH (09:32)
[2018-07-03] MEDS: RANOLAZINE 500 MG TAB.SR.12H PO SCH (09:33)
[2018-07-03] MEDS: LISINOPRIL 10 MG TABLET PO SCH (09:33)
[2018-07-03] MEDS: APIXABAN 2.5 MG TABLET PO SCH (09:33)
[2018-07-03] MEDS: FLUTICASONE NASAL SPRAY 50 MCG/SPRY 120 SPRAY/16 GM NASL SCH (09:33)
[2018-07-03] MEDS: CARVEDILOL 12.5 MG TABLET PO SCH (09:33)
[2018-07-03] MEDS: INSULIN DETEMIR 100 UNIT/ML 3 ML PEN SUBCUT SCH (09:34)
--- NOTE | 2018-07-03 10:00 | EKG REPORT ---
SEVERITY:- NORMAL ECG - SINUS RHYTHM : Confirmed by: Temitope Florez 03-Jul-2018 10:00:00
[2018-07-03] MEDS: DILTIAZEM HCL 180 MG CAPSULE.CR PO SCH (10:50)
--- NOTE | 2018-07-03 11:43 | PDOC DISCHARGE SUMMARY ---
General - Admit/Disc Date/PCP Admission Date/Primary Care Provider: 07/01/18 03:07 ENMANUEL HYLTON Discharge Date: 07/03/18 - seen on rounds this morning with Dr avalos - Discharge Diagnosis (1) Atrial fibrillation with RVR Is this a current diagnosis for this admission?: Yes (2) Elevated troponin Is this a current diagnosis for this admission?: Yes (3) Obesity Is this a current diagnosis for this admission?: Yes (5) Chronic kidney disease Is this a current diagnosis for this admission?: Yes (6) Coronary artery disease Is this a current diagnosis for this admission?: Yes (7) Diabetes Is this a current diagnosis for this admission?: Yes (8) Hypertension Is this a current diagnosis for this admission?: Yes (9) PAF (paroxysmal atrial fibrillation) Is this a current diagnosis for this admission?: Yes - Additional Information Resuscitation Status: Full Code Discharge Diet: Cardiac, Diabetic Discharge Activity: Activity As Tolerated, No Driving - today, Slowly Increase Activity Prescriptions: Ranolazine [Ranexa 500 mg Tab.sr] 500 mg PO Q12 #60 tab.sr.12h Home Medications: Apixaban [Eliquis 2.5 mg Tablet] 2.5 mg PO Q12 01/14/18 Carvedilol [Coreg 12.5 mg Tablet] 12.5 mg PO Q12 01/14/18 Diltiazem HCl [Cardizem Cd 180 mg Capsule] 1 cap.sr PO DAILY@1100 01/14/18 Furosemide [Lasix 40 mg Tablet] 40 mg PO QAM 01/14/18 Furosemide [Lasix 40 mg Tablet] 40 mg PO QPM 01/14/18 Insulin Detemir [Levemir Flextouch] 58 unit SQ QAM 01/14/18 Insulin Detemir [Levemir Flextouch] 61 unit SQ QPM 01/14/18 Lisinopril 40 mg PO DAILY 01/14/18 Multivitamin [Multiple Vitamins] 1 each PO DAILY 01/14/18 Omeprazole 40 mg PO DAILY 01/14/18 Rosuvastatin Calcium [Crestor 10 mg Tablet] 10 mg PO DAILY 01/14/18 Insulin Aspart [Novolog Flexpen] 0 unit SUBCUT .SLD SCALE 07/01/18 Ranolazine [Ranexa 500 mg Tab.sr] 500 mg PO Q12 #60 tab.sr.12h 07/03/18 History of Present Illness History of Present Illness: PREETI MELENDREZ is a 83 year old male who was admitted for atrial fibrillation with rvr. please initial H&P for full assessment and plan Hospital Course Hospital Course: after admission to the hospital he was started on cardizem drip- he converted to sinus rhythm - he was started back on his home medications of cardizem and coreg. his troponin went up slightly. cardiology was consulted- it was felt that this is due to the atrial fibrillation w/ RVR. he remained chest pain free. his troponins trended down. no new EKG changes were seen. ECHO was completed and showed preserved EF with grade 2/4 diastolic dysfunction. this morning he is requesting discharge. he denies any acute pain - no chest pain, SOB or abdominal pain. I spoke with Dr avalos this morning and he cleared patient for discharge to his service unit operator [facility] at home. i gave him new recommendations upon discharge as stated below: start taking ranexa twice daily- talk to your PCP and/or service unit operator [employer] about this medication- you only have 30 days supply now. talk to your pcp and/or service unit operator [employer] [facility] about a sleep study. follow up with your PCP within 1 week follow up with your service unit operator [employer] within 1-2 weeks call 911 or go to ER if you have chest pain or SOB patient verbalized understanding Physical Exam Vital Signs: Temp Pulse Resp BP Pulse Ox 97.3 F 66 16 143/67 H 96 07/03/18 08:59 07/03/18 08:59 07/03/18 08:59 07/03/18 08:59 07/03/18 08:59 Intake & Output 07/02/18 07/03/18 07/04/18 06:59 06:59 06:59 Intake Total 1341 975 Balance 1341 975 Weight 255 lb 11.779 oz 256 lb 6.362 oz General appearance: PRESENT: no acute distress Head exam: PRESENT: atraumatic, normocephalic Eye exam: PRESENT: EOMI, PERRLA. ABSENT: scleral icterus Ear exam: PRESENT: normal external ear exam Mouth exam: PRESENT: tongue midline Neck exam: ABSENT: tracheal deviation Respiratory exam: PRESENT: clear to auscultation racheal, symmetrical Cardiovascular exam: PRESENT: +S1, +S2 Pulses: PRESENT: +2 pedal pulses bilateral GI/Abdominal exam: PRESENT: normal bowel sounds, soft. ABSENT: tenderness Extremities exam: PRESENT: +1 edema - at bilateral rdogers Neurological exam: PRESENT: alert, awake, oriented to person, oriented to place , oriented to time, oriented to situation, CN II-XII grossly intact Skin exam: PRESENT: dry, warm Results Laboratory Results: 07/02/18 06:22 07/02/18 06:22 07/01/18 07/01/18 07/01/18 05:30 11:50 17:35 Creatine Kinase CK-MB (CK-2) 2.24 2.15 2.20 Troponin I 0.052 0.055 0.058 07/02/18 07/02/18 07/02/18 00:37 06:22 12:20 Creatine Kinase 135 CK-MB (CK-2) Troponin I 0.059 0.045 07/02/18 17:55 Creatine Kinase CK-MB (CK-2) Troponin I 0.038 Impressions: Chest X-Ray 06/30/18 23:21 IMPRESSION: Clear lungs. Chest/Abdomen CTA 07/02/18 00:00 IMPRESSION: No CT angio evidence of acute thoracic aortic dissection Qualifiers - * PATIENT BEING DISCHARGED WITH ANY OF THE FOLLOWING DIAGNOSIS: No Plan Time Spent: Greater than 30 Minutes
[2018-07-03 12:43] VITALS: BP 157/74
--- NOTE | 2018-07-03 20:37 | PDOC PROGRESS REPORT ---
Subjective Progress Note for:: 07/03/18 Subjective:: Patient seems to be doing better with gradual improvement. Pt is denying any chest arm or neck discomfort. Patient denying any PND, orthopnea. Patient denied any sustained palpitations, dizziness, syncope, near syncope. Patient denying any fever chills. Patient denying any other significant discomfort. Patient is maintaining sinus rhythm. Review of systems: Rest review of systems negative. Medications: Medications have been reviewed. Reason For Visit: AFIB DIABETES Physical Exam Vital Signs: Temp Pulse Resp BP Pulse Ox 97.3 F 66 16 143/67 H 96 07/03/18 11:48 07/03/18 11:48 07/03/18 11:48 07/03/18 11:48 07/03/18 11:48 Intake & Output 07/02/18 07/03/18 07/04/18 06:59 06:59 06:59 Intake Total 1341 975 Balance 1341 975 Weight 116 kg 116.3 kg Exam: GENERAL: well-nourished and in no acute distress. Alert and oriented x3 HEAD: Atraumatic, normocephalic. EYES: ISRA, sclera anicteric, conjunctiva are normal. ENT: Moist mucous membranes. No oral ulcerations or bleeding gums noted. No obvious ear, nose or throat abnormalities noted. NECK: supple without lymphadenopathy. Trachea is central. No cervical or axillary lymphadenopathy noted. Carotids are 2+, JVD WNL LUNGS: Breath sounds clear bilaterally. No wheezes rales or rhonchi noted. No significant dullness noted on percussion. CHEST: Palpation of the chest wall shows no significant chest wall tenderness. 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 ABDOMEN: Soft, no significant tenderness appreciated, normoactive bowel sounds. No guarding, no rebound. No rigidity noted . No masses appreciated. EXTREMITIES: Pedal pulses are 1-2+, no calf tenderness noted. No clubbing or cyanosis. negative pedal edema noted NEUROLOGICAL: Focused neurological exam showed no significant neurologic deficit. Normal speech, no focal weakness appreciated. PSYCH: Normal mood, normal affect. Judgment and insight within normal limits. SKIN: No significant ecchymosis, skin is noted to be warm. MUSCULOSKELETAL EXAM: No significant acute joint swelling noted. Results Laboratory Results: 07/02/18 06:22 07/02/18 06:22 07/01/18 07/01/18 07/01/18 05:30 11:50 17:35 Creatine Kinase CK-MB (CK-2) 2.24 2.15 2.20 Troponin I 0.052 0.055 0.058 07/02/18 07/02/18 07/02/18 00:37 06:22 12:20 Creatine Kinase 135 CK-MB (CK-2) Troponin I 0.059 0.045 07/02/18 17:55 Creatine Kinase CK-MB (CK-2) Troponin I 0.038 EKG Comments: Telemetry shows patient maintaining sinus rhythm. No sustained tachycardia or bradycardia noted. Impressions: Chest X-Ray 06/30/18 23:21 IMPRESSION: Clear lungs. Chest/Abdomen CTA 07/02/18 00:00 IMPRESSION: No CT angio evidence of acute thoracic aortic dissection Assessment & Plan - Diagnosis (1) Chest pain Qualifiers: Chest pain type: unspecified Qualified Code(s): R07.9 - Chest pain, unspecified Is this a current diagnosis for this admission?: Yes (2) Coronary artery disease Qualifiers: Coronary Disease-Associated Artery/Lesion type: [place] artery [place] vs. transplanted heart: [place] heart Associated angina: angina presence unspecified Qualified Code(s): I25.10 - Atherosclerotic heart disease of [place] coronary artery without angina pectoris Is this a current diagnosis for this admission?: Yes (3) Hypertension Qualifiers: Hypertension type: essential hypertension Qualified Code(s): I10 - Essential (primary) hypertension Is this a current diagnosis for this admission?: Yes (4) PAF (paroxysmal atrial fibrillation) Is this a current diagnosis for this admission?: Yes (5) Obesity Qualifiers: Obesity type: unspecified obesity type Obesity classification: unspecified obesity classification Is this a current diagnosis for this admission?: Yes (6) Diabetes Qualifiers: Diabetes mellitus type: type 2 Diabetes mellitus fdc insulin use: unspecified fdc insulin use status Diabetes mellitus complication status : with unspecified complications Qualified Code(s): E11.8 - Type 2 diabetes mellitus with unspecified complications Is this a current diagnosis for this admission?: Yes - Notes Notes: Patient doing well from cardiac standpoint. Patient symptoms well controlled on current regimen. Patient informed that he would benefit from a sleep study and this was recommended. Patient does wishes to check this with his primary care public health veterinarian. Chest pain: Patient has known history of coronary artery disease with prior stent placement. At this point will optimize medical management of underlying CAD. Chest pain could have been precipitated by atrial fibrillation. Previous stress test results were reviewed with the patient. Coronary artery disease: Patient status post stent placement. Recommend statin therapy, antiplatelet therapy with either aspirin or Plavix, MARIVEL inhibitor/ARB and beta-cari therapy. Hypertension: Blood pressure goal should be 135/85 ideally in patient with CAD but patient is elderly therefore a more liberal goal of 140/90 can be undertaken in this patient. Paroxysmal atrial fibrillation: Could have been precipitated by decongestant use but patient may also have underlying sleep apnea syndrome which can precipitate atrial fibrillation. Recommend that patient be referred for sleep evaluation. Currently patient maintaining sinus rhythm. Obesity: Patient will benefit from gradual weight loss. However at patient's age, its fitness which is more important than weight loss. Diabetes: Being expertly managed by hospitalist. Further management as an outpatient by supervisor cutting and sewing room. 2D echo results were reviewed with the patient. Patient questions answered. Have not scheduled a stress test since patient had one done in December which was negative. Will place patient on Ranexa as this has some data supporting prevention of atrial fibrillation. Ranexa may also help with diabetes management. Other antiarrhythmics not started because of side effect concerns. - Time Time with patient: Greater than 35 minutes - CODE STATUS was discussed, patient remains full code. Surrogate decision-maker patient's friend by the name of Wild Pierce. multiple medical problems were addressed. More than 50% of the time spent coordinating care, discussing management plans with involved caregivers. Management plans discussed with involved personnels. Medical decision making was of moderate to high complexity, patient's has multiple comorbidities. Medications reviewed and adjusted accordingly: Yes
== END 2018-07-03 13:40 | disposition home or self-care (01) | DRG 310 ==
LOC: ER 23:08 → EH 07-01 03:07 → 3W 07-01 04:24
PROVIDERS: ADMIT Internal Medicine; ATTEND Internal Medicine
DX: I48.0 Paroxysmal atrial fibrillation (principal); I48.2 Chronic atrial fibrillation; I11.0 Hypertensive heart disease with heart failure; I50.9 Heart failure, unspecified; I25.10 Atherosclerotic heart disease of native coronary artery without angina pectoris; J32.9 Chronic sinusitis, unspecified; E11.9 Type 2 diabetes mellitus without complications; K21.9 Gastro-esophageal reflux disease without esophagitis; Z79.02 Long term (current) use of antithrombotics/antiplatelets; Z79.4 Long term (current) use of insulin; Z79.899 Other long term (current) drug therapy; Z95.5 Presence of coronary angioplasty implant and graft; Z88.1 Allergy status to other antibiotic agents; Z88.8 Allergy status to other drugs, medicaments and biological substances; E66.9 Obesity, unspecified; Z68.39 Body mass index [BMI] 39.0-39.9, adult
CPT/HCPCS: 36415; 71045; 71275; 80048; 80053; 80061; 82550; 82553; 82962; 83735; 84443; 84484; 85025; 93005; 93010; 93306; 96365; 96375; 99285; J1815; J3490

== ENCOUNTER 2018-07-05 12:34 | Emergency (ER) | payer MEDICARE, MEDICAID ==
[2018-07-05] MEDS ORDERED: METHYLPREDNISOLONE INJ 125 MG/2 ML SDV IV ONE (14:19)
[2018-07-05] MEDS ORDERED: DIPHENHYDRAMINE HCL 50 MG/ML VIAL IV ONE (14:19)
[2018-07-05] MEDS ORDERED: ASPIRIN 81 MG TABLET, CHEWABLE PO ONE (14:19)
[2018-07-05] MEDS ORDERED: FAMOTIDINE INJ/PF 20 MG/2 ML SDV IV ONE (14:19)
--- NOTE | 2018-07-05 14:22 | ER Document Report ---
ED General - General Chief Complaint: Difficulty Swallowing Stated Complaint: Difficulty swallowing Time Seen by Provider: 07/05/18 14:11 Mode of Arrival: Ambulatory Information source: Patient Notes: 83-year-old male presents emergency department complaints of throat tightness. Patient states that he was just discharged from the hospital with a prescription for Ranexa. Patient states that he took a dose last night and again today. Patient states after taking a dose of this medication his throat began to feel tight. He denies any difficulty breathing, difficulty swallowing , chest pain, nausea, vomiting, abdominal pain. Patient did not take any medication for possible allergic reaction. He contacted his primary care physician's office and was told to go the emergency department for an evaluation. TRAVEL OUTSIDE OF THE [place] IN LAST 30 DAYS: No - HPI Onset: Yesterday Onset/Duration: Gradual Quality of pain: No pain Severity: None Pain Level: Denies Associated symptoms: None Exacerbated by: Denies, Other - Ranexa Relieved by: Denies Similar symptoms previously: No Recently seen / treated by doctor: Yes - Related Data Allergies/Adverse Reactions: amoxicillin Allergy (Verified 11/28/17 16:48) atorvastatin [From Lipitor] Allergy (Verified 07/01/18 04:44) divalproex sodium [From Depakote] Allergy (Verified 11/28/17 16:48) levofloxacin [From Levaquin] Allergy (Verified 11/28/17 16:48) liraglutide [From Victoza] Allergy (Verified 07/01/18 04:44) metformin [From Janumet] Allergy (Verified 07/01/18 04:44) simvastatin [From Zocor] Allergy (Verified 07/01/18 04:44) sitagliptin [From Janumet] Adverse Reaction (Verified 07/01/18 04:45) kidney issues Past Medical History - General Information source: Patient - Social History Smoking Status: Former Smoker Family History: CAD - Mother at about 65, CVA - Father in his 50s, Hypertension Patient has suicidal ideation: No Patient has homicidal ideation: No - Past Medical History Cardiac Medical History: Reports: Hx Atrial Fibrillation, Hx Congestive Heart Failure, Hx Coronary Artery Disease, Hx Hypertension Endocrine Medical History: Reports: Hx Diabetes Mellitus Type 2 Renal/ Medical History: Denies: Hx Peritoneal Dialysis GI Medical History: Reports: Hx Gastroesophageal Reflux Disease Psychiatric Medical History: Denies: Hx Dementia, Hx Depression Past Surgical History: Reports: Hx Cardiac Catheterization, Hx Coronary Stent - Immunizations Hx Pneumococcal Vaccination: 05/30/17 Review of Systems - Review of Systems Constitutional: No symptoms reported EENT: Throat swelling Cardiovascular: No symptoms reported Respiratory: No symptoms reported Gastrointestinal: No symptoms reported Genitourinary: No symptoms reported Male Genitourinary: No symptoms reported Musculoskeletal: No symptoms reported Skin: No symptoms reported Hematologic/Lymphatic: No symptoms reported Neurological/Psychological: No symptoms reported -: Yes All other systems reviewed and negative Physical Exam - Vital signs Vitals: Temp Pulse Resp BP Pulse Ox 98.1 F 73 21 H 161/80 H 100 07/05/18 12:42 07/05/18 12:42 07/05/18 12:42 07/05/18 12:42 07/05/18 12:42 - Notes Notes: PHYSICAL EXAMINATION: GENERAL: Well-appearing, well-nourished and in no acute distress. HEAD: Atraumatic, normocephalic. EYES: Pupils equal round and reactive to light, extraocular movements intact, sclera anicteric, conjunctiva are normal. ENT: Nares patent, oropharynx clear without exudates. Moist mucous membranes. NECK: Normal range of motion, supple without lymphadenopathy LUNGS: Breath sounds clear to auscultation bilaterally and equal. No wheezes rales or rhonchi. HEART: Regular rate and rhythm without murmurs ABDOMEN: Soft, nontender, nondistended abdomen. No guarding, no rebound. No masses appreciated. Musculoskeletal: Normal range of motion, no pitting or edema. No cyanosis. NEUROLOGICAL: Cranial nerves grossly intact. Normal speech, normal gait. Normal sensory, motor exams PSYCH: Normal mood, normal affect. SKIN: Warm, Dry, normal turgor, no rashes or lesions noted. Course - Re-evaluation Re-evalutation: 07/05/18 14:22 Patient is handling his secretions. He is sitting comfortably in the room. He is in no acute distress. Lungs are clear to auscultation bilaterally. 07/05/18 16:11 EKG: Ventricular rate 69, para interval 184, QRS duration 78, QTc 480, sinus rhythm, no ST segment elevation. 07/05/18 16:59 Labs and imaging obtained. Troponin is chronically in the indeterminate range. Patient denies any chest pain. Patient given Benadryl, Solu-Medrol, Pepcid. On reevaluation, patient states that he is feeling much better. I contacted Dr. Florez as he was the physician that saw the patient in the hospital and started the Ranexa. He believes that the patient is having an allergic reaction to this drug. He recommends stopping this since starting amiodarone 200 mg p.o. twice daily. Patient is scheduled to follow-up with his plan manager on Monday. I gave the patient a prescription for enough medication to get him to that appointment. I instructed the patient to take the medication as directed, to follow-up with his plan manager as scheduled, and to return to the emergency department for any worsening symptoms. He is agreeable to plan of care. 07/05/18 22:22 - Vital Signs Vital signs: Temp Pulse Resp BP Pulse Ox 98.4 F 62 16 136/75 H 96 07/05/18 17:01 07/05/18 17:01 07/05/18 17:01 07/05/18 17:01 07/05/18 17:01 - Laboratory Result Diagrams: 07/05/18 12:55 07/05/18 12:55 Laboratory results interpreted by me: 07/05/18 12:55 BUN 22 H Creatinine 1.53 H Est GFR ( Amer) 53 L Est GFR (Non-Af Amer) 44 L Glucose 145 H Discharge - Discharge Clinical Impression: Allergic reaction caused by a drug Qualifiers: Encounter type: initial encounter Qualified Code(s): T78.40XA - Allergy, unspecified, initial encounter Condition: Good Disposition: HOME, SELF-CARE Instructions: Acute Allergic Reaction to Drugs ([facility]) Additional Instructions: Stop taking the Ranexa. Start the amiodarone prescribed. Follow-up with your plan manager this week as scheduled. Return to the emergency department for worsening symptoms. Prescriptions: Amiodarone HCl [Cordarone 200 mg Tablet] 200 mg PO BID #14 tablet Referrals: LINNEA BLACK PA [Primary Care Provider] - Follow up as needed
[2018-07-05 14:49] LABS: ABSOLUTE BASOPHILS # (AUTO) 0.1 10^3/uL (0.0-0.2); ABSOLUTE EOSINOPHILS # (AUTO) 0.2 10^3/uL (0.0-0.6); ABSOLUTE LYMPHOCYTES (AUTO) 2.3 10^3/uL (0.5-4.7); ABSOLUTE NEUT (AUTO) 5.3 10^3/uL (1.7-8.2); BASOPHILS % (AUTO) 0.9 % (0-2); EOSINOPHILS % (AUTO) 2.4 % (0-6); HEMATOCRIT 45.1 % (37.9-51.0); HEMOGLOBIN 15.6 g/dL (13.5-17.0); LYMPHOCYTES % (AUTO) 26.4 % (13-45); MEAN CORPUSCULAR HEMOGLOBIN 33.4 pg (27.0-33.4); MEAN CORPUSCULAR HGB CONC 34.5 g/dL (32.0-36.0); MEAN CORPUSCULAR VOLUME 97 fl (80-97); MONOCYTES % (AUTO) 11.2 % (3-13); PLATELET COUNT 233 10^3/uL (150-450); RED BLOOD COUNT 4.66 10^6/uL (4.35-5.55); RED CELL DISTRIBUTION WIDTH 13.6 % (11.5-14.0); SEGMENTED NEUTROPHILS % (AUTO) 59.1 % (42-78); TOTAL CELLS COUNTED % (AUTO) 100 %; WHITE BLOOD COUNT 8.9 10^3/uL (4.0-10.5)
--- NOTE | 2018-07-05 14:53 | RADIOLOGY REPORT (SQ) ---
All EXAM DESCRIPTION: CHEST SINGLE VIEW COMPLETED DATE/TIME: 07/05/2018 2:31 pm REASON FOR STUDY: difficulty breathing COMPARISON: 06/30/2018 EXAM PARAMETERS: NUMBER OF VIEWS: One view. TECHNIQUE: Single frontal radiographic view of the chest acquired. RADIATION DOSE: NA LIMITATIONS: None. FINDINGS: LUNGS AND PLEURA: No opacities, masses or pneumothorax. No pleural effusion. MEDIASTINUM AND HILAR STRUCTURES: No masses. Contour normal. HEART AND VASCULAR STRUCTURES: Heart size is borderline. No pulmonary edema. BONES: No acute findings. HARDWARE: None in the chest. OTHER: No other significant finding. IMPRESSION: Borderline heart size. No acute pulmonary disease. TECHNICAL DOCUMENTATION: JOB ID: [id number] [employer]- All Rights Reserved Reading location - IP/workstation name: [email or web address]
[2018-07-05 15:09] LABS: ALANINE AMINOTRANSFERASE 39 U/L (21-72); ALBUMIN 4.2 g/dL (3.5-5.0); ALKALINE PHOSPHATASE 71 U/L (38-126); ANION GAP 14 (5-19); ASPARTATE AMINO TRANSFERASE 42 U/L (17-59); BILIRUBIN,DIRECT 0.3 mg/dL (0.0-0.4); BILIRUBIN,TOTAL 0.5 mg/dL (0.2-1.3); BLOOD UREA NITROGEN 22 mg/dL (7-20); CALCIUM 9.7 mg/dL (8.4-10.2); CARBON DIOXIDE 28 mmol/L (22-30); CHLORIDE 100 mmol/L (98-107); GLUCOSE 145 mg/dL (75-110); POTASSIUM 4.4 mmol/L (3.6-5.0); SODIUM 142.1 mmol/L (137-145); TOTAL PROTEIN 7.4 g/dL (6.3-8.2)
[2018-07-05 17:07] VITALS: BP 136/75
--- NOTE | 2018-07-06 10:40 | EKG REPORT ---
SEVERITY:- ABNORMAL ECG - SINUS RHYTHM VENTRICULAR PREMATURE COMPLEX LVH BY VOLTAGE BORDERLINE T ABNORMALITIES, INFERIOR LEADS BORDERLINE PROLONGED QT INTERVAL : Confirmed by: Temitope Florez 06-Jul-2018 10:40:16
--- NOTE | 2018-07-06 10:40 | EKG REPORT ---
SEVERITY:- ABNORMAL ECG - SINUS RHYTHM LEFT VENTRICULAR HYPERTROPHY BORDERLINE T ABNORMALITIES, INFERIOR LEADS : Confirmed by: Temitope Florez 06-Jul-2018 10:40:23
== END 2018-07-05 17:01 | disposition home or self-care (01) ==
LOC: ER 12:34
DX: T46.995A Adverse effect of other agents primarily affecting the cardiovascular system, initial encounter (principal); R13.10 Dysphagia, unspecified; X58.XXXA Exposure to other specified factors, initial encounter; I48.91 Unspecified atrial fibrillation; I50.9 Heart failure, unspecified; I25.10 Atherosclerotic heart disease of native coronary artery without angina pectoris; I11.0 Hypertensive heart disease with heart failure; E11.9 Type 2 diabetes mellitus without complications; Z88.0 Allergy status to penicillin
CPT/HCPCS: 93005; 99284; 96374; 96375; 36415; 85025; 80053; 84484; 71045; 93010; A9270; J1200; J2930; S0028

== ENCOUNTER 2018-08-10 00:49 | Emergency (ER) | payer MEDICARE, MEDICAID ==
--- NOTE | 2018-08-10 01:04 | ER Document Report ---
ED General - General Stated Complaint: DIZZINESS Time Seen by Provider: 08/10/18 00:52 Notes: Patient is an 83-year-old male who presents with complaint of dizziness and weakness that started tonight. Says when he gets up and walks around becomes very short of breath. He says he feels very dizzy and lightheaded. He says he feels weak when he is lying down but when he stands up it gets much worse. Patient says that the dizziness is almost like a spinning sensation. He says it is much worse when he rolls or sits up. He denies any palpitations. Paramedics noticed that he was orthostatic when they stood him up and checked his blood pressure and heart rate. Denies recent fevers. He denies any pain. No headache, no chest pain, no abdominal pain. No vomiting. No recent diarrhea. He was on Ranexa but this was switched to amiodarone proximal a month ago. He has had no problems with amiodarone since being switched to just over a month ago. No recent trauma or injuries. No focal weakness or numbness. No other complaints at this time. TRAVEL OUTSIDE OF THE [place] IN LAST 30 DAYS: No - Related Data Allergies/Adverse Reactions: amoxicillin Allergy (Verified 11/28/17 16:48) atorvastatin [From Lipitor] Allergy (Verified 07/01/18 04:44) divalproex sodium [From Depakote] Allergy (Verified 11/28/17 16:48) levofloxacin [From Levaquin] Allergy (Verified 11/28/17 16:48) liraglutide [From Victoza] Allergy (Verified 07/01/18 04:44) metformin [From Janumet] Allergy (Verified 07/01/18 04:44) simvastatin [From Zocor] Allergy (Verified 07/01/18 04:44) sitagliptin [From Janumet] Adverse Reaction (Verified 07/01/18 04:45) kidney issues Past Medical History - Social History Smoking Status: Former Smoker Frequency of alcohol use: None Drug Abuse: None Family History: CAD - Mother at about 65, CVA - Father in his 50s, Hypertension - Past Medical History Cardiac Medical History: Reports: Hx Atrial Fibrillation, Hx Congestive Heart Failure, Hx Coronary Artery Disease, Hx Hypertension Endocrine Medical History: Reports: Hx Diabetes Mellitus Type 2 Renal/ Medical History: Denies: Hx Peritoneal Dialysis GI Medical History: Reports: Hx Gastroesophageal Reflux Disease Psychiatric Medical History: Denies: Hx Dementia, Hx Depression Past Surgical History: Reports: Hx Cardiac Catheterization, Hx Coronary Stent - Immunizations Hx Pneumococcal Vaccination: 05/30/17 Review of Systems - Review of Systems Notes: My Normal Review Basic REVIEW OF SYSTEMS: CONSTITUTIONAL : Denies fever, chills, or sweats. Generalized weakness EENT: Denies eye, ear, throat, or mouth pain or symptoms. Denies nasal or sinus congestion. CARDIOVASCULAR: Denies chest pain. RESPIRATORY: shortness of breath with ambulation. GASTROINTESTINAL: Denies abdominal pain. Denies nausea, vomiting, or diarrhea. GENITOURINARY: Denies difficulty urinating, painful urination, burning, frequency, or blood in urine. MUSCULOSKELETAL: Denies neck or back pain or joint pain or swelling. SKIN: Denies rash or skin lesions. NEUROLOGICAL: Denies altered mental status or loss of consciousness. Denies headace. Denies sensory or motor loss. PSYCHIATRIC: Denies anxiety or stress or depression. ALL OTHER SYSTEMS REVIEWED AND NEGATIVE. Physical Exam - Vital signs Vitals: Temp Pulse Resp BP Pulse Ox 97.9 F 65 17 161/63 H 96 08/10/18 00:49 08/10/18 00:49 08/10/18 00:49 08/10/18 00:49 08/10/18 00:49 - Notes Notes: General Appearance: Well nourished, alert, cooperative, no acute distress, no obvious discomfort. Vitals: reviewed, See vital signs table. Head: no swelling or tenderness to the head Eyes: PERRL, EOMI, Conjuctiva clear Mouth: No decreasd moisture Throat: No tonsillar inflammation, No airway obstruction, No lymphadenopathy Neck: Supple, no neck tenderness, No thyromegaly Lungs: No wheezing, faint basilar rales. No accessory muscle use. No tachypnea. Heart: Normal rate, Regular rythm, No murmur, no rub Abdomen: Normal BS, soft, No rigidity, No abdominal tenderness, No guarding, no rebound, no abdominal masses, no organomegaly Extremities: strength 5/5 in all extremities, good pulses in all extremities, no swelling or tenderness in the extremities, 1+ bilateral lower extremity edema Skin: warm, dry, appropriate color, no rash Neuro: speech clear, oriented x 3, normal affect, responds appropriately to questions. Cranial nerves II through XII are intact. Distal sensation intact. Patient moves all 4 extremities without difficulty. Course - Re-evaluation Re-evalutation: 08/10/18 02:07 On reevaluation patient says he is feeling less dizzy is feeling improved from where he was. He did get a bit nauseous earlier but that went away with the na usea medicine. I did stand him up and his heart rate remained stable. He mentions that his urine has been much more yellow than normal. He is currently giving us a urine sample. 08/10/18 04:16 Patient is feeling much improved. His dizziness is completely resolved. I just told him I walked him around. He says his gait is normal. He is gait is just slightly staggered based that this is normal for him. He is able to balance himself without difficulty. It sounds as if his initial dizziness may have been vertigo relating that he says he felt like he was spinning and was worse when he turns or sat up. This is since resolved. I did look at his ear canals he does not have any evidence of cerumen impaction. He also could be some orthostasis related to his dizziness being that the paramedics said that he was orthostatic when he first arrived. I have started him here on the monitor and he does not have any recent heart rate and he is not getting dizzy anymore. I did give him a 250 mL bolus of fluids being that the patient says his urine has been a bit darker than normal and the paramedics reported some orthostasis. His urinalysis shows no evidence of infection. He looks and feels well. He has no chest pain. No shortness of breath. No passing out episodes. He no longer is having dizziness. I feel he safe to be discharged home. Strongly encouraged him return to ER immediately if he has fevers, chest pain, palpitations, abdominal pain, recurrent dizziness, or if he feels unwell. Patient agrees with plan and will be discharged home. Dictation of this chart was performed using voice recognition software; therefore, there may be some unintended grammatical errors. - Vital Signs Vital signs: Temp Pulse Resp BP Pulse Ox 98.1 F 65 17 115/53 L 96 08/10/18 04:01 08/10/18 00:49 08/10/18 04:01 08/10/18 04:01 08/10/18 04:01 - Laboratory Result Diagrams: 08/10/18 00:20 08/10/18 00:20 Laboratory results interpreted by me: 08/10/18 08/10/18 00:20 00:20 WBC 13.1 H RBC 4.26 L Absolute Neutrophils 8.6 H BUN 38 H Creatinine 1.86 H Est GFR ( Amer) 42 L Est GFR (Non-Af Amer) 35 L Glucose 148 H - EKG Interpretation by Me Additional EKG results interpreted by me: 08/10/18 01:10 EKG is reviewed and interpreted by me. EKG shows sinus rhythm with a rate of [address] segment elevation or depression. No ischemic T wave inversions. IL interval slightly prolonged. QRS duration and QT intervals are within normal range. Old EKG for comparison is from July 05, 2018. Discharge - Discharge Clinical Impression: Dizziness Condition: Good Disposition: HOME, SELF-CARE Additional Instructions: Please return to the ER immediately if you develop recurrent dizziness, chest pain, fevers, abdominal pain, palpitations, or feel unwell. Please drink plenty of water and stay well hydrated. Call your doctor this am to make a close follow up appointment for either today or Monday. Referrals: LINNEA BLACK PA [Primary Care Provider] - 08/10/18
[2018-08-10 01:15] LABS: ABSOLUTE BASOPHILS # (AUTO) 0.1 10^3/uL (0.0-0.2); ABSOLUTE EOSINOPHILS # (AUTO) 0.2 10^3/uL (0.0-0.6); ABSOLUTE LYMPHOCYTES (AUTO) 2.8 10^3/uL (0.5-4.7); ABSOLUTE MONOCYTES (AUTO) 1.4 10^3/uL (0.1-1.4); ABSOLUTE NEUT (AUTO) 8.6 10^3/uL (1.7-8.2); BASOPHILS % (AUTO) 0.6 % (0-2); EOSINOPHILS % (AUTO) 1.5 % (0-6); HEMATOCRIT 41.3 % (37.9-51.0); HEMOGLOBIN 14.2 g/dL (13.5-17.0); MEAN CORPUSCULAR HEMOGLOBIN 33.4 pg (27.0-33.4); MEAN CORPUSCULAR HGB CONC 34.4 g/dL (32.0-36.0); MEAN CORPUSCULAR VOLUME 97 fl (80-97); PLATELET COUNT 241 10^3/uL (150-450); RED BLOOD COUNT 4.26 10^6/uL (4.35-5.55); SEGMENTED NEUTROPHILS % (AUTO) 65.9 % (42-78); TOTAL CELLS COUNTED % (AUTO) 100 %; WHITE BLOOD COUNT 13.1 10^3/uL (4.0-10.5)
[2018-08-10 01:29] LABS: ALANINE AMINOTRANSFERASE 35 U/L (21-72); ALBUMIN 4.2 g/dL (3.5-5.0); ALKALINE PHOSPHATASE 73 U/L (38-126); ANION GAP 9 (5-19); ASPARTATE AMINO TRANSFERASE 32 U/L (17-59); BILIRUBIN,DIRECT 0.2 mg/dL (0.0-0.4); BILIRUBIN,TOTAL 0.3 mg/dL (0.2-1.3); BLOOD UREA NITROGEN 38 mg/dL (7-20); CALCIUM 9.2 mg/dL (8.4-10.2); CARBON DIOXIDE 27 mmol/L (22-30); CHLORIDE 101 mmol/L (98-107); GLUCOSE 148 mg/dL (75-110); POTASSIUM 4.6 mmol/L (3.6-5.0); SODIUM 137.3 mmol/L (137-145); TOTAL PROTEIN 6.8 g/dL (6.3-8.2)
[2018-08-10] MEDS ORDERED: ONDANSETRON HCL INJ/PF 4 MG/2 ML SDV IV ONE (01:29)
--- NOTE | 2018-08-10 01:34 | RADIOLOGY REPORT (SQ) ---
XR CHEST 1 VIEW HISTORY: Dyspnea. COMPARISON: 07/05/2018 FINDINGS: Query cardiomegaly with mild pulmonary vascular congestion. No pleural effusion or pneumothorax is identified. IMPRESSION: Mild pulmonary edema. No pleural effusions.
[2018-08-10 01:39] LABS: TROPONIN I 0.019 ng/mL
[2018-08-10] MEDS ORDERED: NORMAL SALINE 250 ML IV ONE (01:57)
[2018-08-10 02:40] LABS: APPEARANCE,URINE CLEAR; BILIRUBIN,URINE NEGATIVE (NEGATIVE); COLOR,URINE YELLOW; GLUCOSE, URINE NEGATIVE (NEGATIVE); KETONES,URINE NEGATIVE (NEGATIVE); LEUKOCYTE ESTERASE,URINE NEGATIVE (NEGATIVE); NITRITE,URINE NEGATIVE (NEGATIVE); PROTEIN,URINE NEGATIVE (NEGATIVE); URINE SPECIFIC GRAVITY 1.015; UROBILINOGEN,URINE NEGATIVE mg/dL (<2.0)
[2018-08-10 04:47] VITALS: BP 115/53
--- NOTE | 2018-08-10 07:52 | EKG REPORT ---
SEVERITY:- ABNORMAL ECG - SINUS RHYTHM FIRST DEGREE AV BLOCK CONSIDER OLD ANTEROSEPTAL MA : Confirmed by: Kevin Doherty MD 10-Aug-2018 07:51:07
== END 2018-08-10 04:30 | disposition home or self-care (01) ==
LOC: ER 00:49
DX: R42 Dizziness and giddiness (principal); R53.1 Weakness; R06.02 Shortness of breath; Z87.891 Personal history of nicotine dependence; I48.91 Unspecified atrial fibrillation; I50.9 Heart failure, unspecified; I25.10 Atherosclerotic heart disease of native coronary artery without angina pectoris; I11.0 Hypertensive heart disease with heart failure; E11.9 Type 2 diabetes mellitus without complications
CPT/HCPCS: 93005; 99285; 96361; 96374; 36415; 85025; 80053; 81001; 84484; 83880; 71045; 93010; J2405; J7050

== ENCOUNTER 2018-08-23 01:23 | Emergency (ER) | payer MEDICARE, MEDICAID ==
[2018-08-23] MEDS ORDERED: RINGERS SOLUTION,LACTATED 1,000 ML IV ONE (02:57)
--- NOTE | 2018-08-23 03:11 | RADIOLOGY REPORT (SQ) ---
CLINICAL HISTORY: dizziness COMPARISON: August 10, 2018. TECHNIQUE: XR CHEST 1 VIEW 08/23/2018 2:57 AM [employer]IST FINDINGS: Cardiac silhouette is borderline in size. There are mild interstitial changes throughout both lungs which are unchanged. There is no pleural effusion. There is no pneumothorax. There are no acute osseous findings. IMPRESSION: No significant change.
--- NOTE | 2018-08-23 03:32 | ER Document Report ---
ED General - General Chief Complaint: Dizziness Stated Complaint: DIZZY Time Seen by Provider: 08/23/18 01:29 Notes: Patient is an 83-year-old male who presents to the emergency department with a chief complaint of dizziness and nausea. He was brought in by ambulance. He has a history of Mnire's disease. He states that this time his dizziness does not feel like Mnire's disease. He has a history of CHF, hypertension, diabetes, hyperlipidemia. He was seen on August 10 for the same complaint. It appears as if he was dehydrated. He denies any chest pain, cough, fever, or any other symptoms at this time. He does have history of cardiac stent placement. He denies any numbness, tingling, or weakness at this time. TRAVEL OUTSIDE OF THE [place] IN LAST 30 DAYS: No - Related Data Allergies/Adverse Reactions: amoxicillin Allergy (Verified 11/28/17 16:48) atorvastatin [From Lipitor] Allergy (Verified 07/01/18 04:44) divalproex sodium [From Depakote] Allergy (Verified 11/28/17 16:48) levofloxacin [From Levaquin] Allergy (Verified 11/28/17 16:48) liraglutide [From Victoza] Allergy (Verified 07/01/18 04:44) metformin [From Janumet] Allergy (Verified 07/01/18 04:44) simvastatin [From Zocor] Allergy (Verified 07/01/18 04:44) sitagliptin [From Janumet] Adverse Reaction (Verified 07/01/18 04:45) kidney issues Past Medical History - General Information source: Patient - Social History Smoking Status: Former Smoker Frequency of alcohol use: None Drug Abuse: None Lives with: Alone Family History: CAD - Mother at about 65, CVA - Father in his 50s, Hypertension Patient has suicidal ideation: No Patient has homicidal ideation: No - Past Medical History Cardiac Medical History: Reports: Hx Atrial Fibrillation, Hx Congestive Heart Failure, Hx Coronary Artery Disease, Hx Hypertension Endocrine Medical History: Reports: Hx Diabetes Mellitus Type 2 Renal/ Medical History: Denies: Hx Peritoneal Dialysis GI Medical History: Reports: Hx Gastroesophageal Reflux Disease Psychiatric Medical History: Denies: Hx Dementia, Hx Depression Past Surgical History: Reports: Hx Cardiac Catheterization, Hx Coronary Stent - Immunizations Hx Pneumococcal Vaccination: 10/10/17 Review of Systems - Review of Systems Notes: REVIEW OF SYSTEMS: CONSTITUTIONAL : Denies recent illness. Denies recent unintentional weight loss. Denies fever, chills, or sweats. EENT: Denies eye, ear, throat, or mouth pain, discharge, or symptoms. Denies nasal or sinus congestion. CARDIOVASCULAR: Denies chest pain. RESPIRATORY: Denies shortness of breath, cough, congestion, difficulty breathing, or wheezing. GASTROINTESTINAL: Denies nausea, vomiting, and diarrhea. Denies abdominal pain. Denies constipation. GENITOURINARY: Denies difficulty urinating, burning, blood in urine, urgency or frequency. MUSCULOSKELETAL: Denies neck and back pain. Denies joint pain or swelling. SKIN: Denies rash, itchiness, or lesions HEMATOLOGIC : Denies easy bruising or bleeding. LYMPHATIC: Denies swollen, painful, enlarged glands. NEUROLOGICAL: See HPI PSYCHIATRIC: Denies stress, anxiety, alteration in sleep patterns, or depression. All other systems reviewed and negative. Physical Exam - Vital signs Vitals: Temp Pulse Resp BP Pulse Ox 98.3 F 63 20 162/66 H 96 08/23/18 01:23 08/23/18 01:23 08/23/18 01:23 08/23/18 01:23 08/23/18 01:23 - Notes Notes: PHYSICAL EXAMINATION: GENERAL: Appears well, healthy, well-nourished, no acute distress. HEAD: Normocephalic, atraumatic. EYES: PERRL, conjunctiva normal, all extraocular movements intact, sclera nonicteric ENT: Moist mucous membranes. Fluid noted behind left tympanic membrane. No erythema noted to bilateral tympanic membranes. NECK: Supple, no noticeable swelling, redness, rash. Normal range of motion. LUNGS: Equal breath sounds bilaterally and clear to auscultation. No wheezes rales or rhonchi. CARDIOVASCULAR: S1-S2, regular rate, regular rhythm. Radial pulses 2+, normal. ABDOMEN: Normoactive bowel sounds. Soft, nontender, no guarding, no rebound tenderness, and no masses palpated. EXTREMITIES: Normal strength and range of motion, 1+ pitting edema. No cyanosis. NEUROLOGICAL: Moves all extremities upon command. Strength 5/5 in all extremities. PSYCH: Normal mood, normal affect. SKIN: Warm, dry. No rash, lesions, ulcerations noted. Normal skin turgor. Course - Re-evaluation Re-evalutation: Based off patient's age and symptoms, the differential diagnosis includes stroke, acute TN, pneumonia, urinary tract infection. 08/23/18 03:43 Chest x-ray is unremarkable at this time. His EKG shows sinus rhythm with a first-degree heart block. There is no change from his previous EKG done on August 10. 08/23/18 04:[address] of his head is negative. He also has no focal neurological deficits at this time. Patient's troponin is 0.025. Another troponin will be drawn to make sure there is no rise in his troponin. 08/23/18 06:45 I have reevaluated the patient and he eats he feels better with the nausea medication and the fluids. I suspect the patient's dizziness is related to the fluid does behind his left ear. He will be given cetirizine for his symptoms. Verbal discharge instructions were given to the patient. They verbalized understanding. They are stable for discharge. - Vital Signs Vital signs: Temp Pulse Resp BP Pulse Ox 98.3 F 63 18 143/66 H 96 08/23/18 01:23 08/23/18 01:23 08/23/18 06:00 08/23/18 03:00 08/23/18 06:00 - Laboratory Result Diagrams: 08/23/18 03:24 08/23/18 03:24 Laboratory results interpreted by me: 08/23/18 08/23/18 03:24 03:24 RBC 4.14 L MCV 98 H RDW 14.2 H BUN 28 H Creatinine 1.63 H Est GFR ( Amer) 49 L Est GFR (Non-Af Amer) 41 L Glucose 245 H Discharge - Discharge Clinical Impression: Dizziness Condition: Stable Disposition: HOME, SELF-CARE Additional Instructions: You are seen in the emergency department today for dizziness. There is no clear cause of your dizziness. Your lab results are normal. The CT of your head is normal and your chest x-ray is normal. You do have a little bit of fluid behind your left ear, which may be the cause of your dizziness. I have given you a prescription for cetirizine, medication for allergies and to help clear up the fluid behind the ear. If you pass out, develop dizziness again, or have any symptoms that are worrisome to you, please return to the emergency department. Prescriptions: RX: Cetirizine HCl [24Hour Allergy] 10 mg PO DAILY #30 tablet Referrals: LINNEA BLACK PA [Primary Care Provider] - Follow up as needed
[2018-08-23 03:34] LABS: ABSOLUTE BASOPHILS # (AUTO) 0.1 10^3/uL (0.0-0.2); ABSOLUTE EOSINOPHILS # (AUTO) 0.1 10^3/uL (0.0-0.6); ABSOLUTE LYMPHOCYTES (AUTO) 1.7 10^3/uL (0.5-4.7); ABSOLUTE MONOCYTES (AUTO) 0.8 10^3/uL (0.1-1.4); ABSOLUTE NEUT (AUTO) 6.4 10^3/uL (1.7-8.2); BASOPHILS % (AUTO) 0.8 % (0-2); EOSINOPHILS % (AUTO) 1.3 % (0-6); HEMATOCRIT 40.4 % (37.9-51.0); HEMOGLOBIN 13.7 g/dL (13.5-17.0); LYMPHOCYTES % (AUTO) 18.3 % (13-45); MEAN CORPUSCULAR HEMOGLOBIN 33.2 pg (27.0-33.4); MEAN CORPUSCULAR VOLUME 98 fl (80-97); MONOCYTES % (AUTO) 8.8 % (3-13); PLATELET COUNT 219 10^3/uL (150-450); RED BLOOD COUNT 4.14 10^6/uL (4.35-5.55); RED CELL DISTRIBUTION WIDTH 14.2 % (11.5-14.0); SEGMENTED NEUTROPHILS % (AUTO) 70.8 % (42-78); TOTAL CELLS COUNTED % (AUTO) 100 %; WHITE BLOOD COUNT 9.1 10^3/uL (4.0-10.5)
[2018-08-23 03:40] LABS: APPEARANCE,URINE CLEAR; BILIRUBIN,URINE NEGATIVE (NEGATIVE); COLOR,URINE STRAW; GLUCOSE, URINE NEGATIVE (NEGATIVE); KETONES,URINE NEGATIVE (NEGATIVE); LEUKOCYTE ESTERASE,URINE NEGATIVE (NEGATIVE); NITRITE,URINE NEGATIVE (NEGATIVE); PROTEIN,URINE NEGATIVE (NEGATIVE); URINE SPECIFIC GRAVITY 1.004; UROBILINOGEN,URINE NEGATIVE mg/dL (<2.0)
[2018-08-23 03:55] LABS: ALANINE AMINOTRANSFERASE 52 U/L (21-72); ALBUMIN 3.8 g/dL (3.5-5.0); ALKALINE PHOSPHATASE 65 U/L (38-126); ANION GAP 8 (5-19); ASPARTATE AMINO TRANSFERASE 41 U/L (17-59); BILIRUBIN,DIRECT 0.2 mg/dL (0.0-0.4); BILIRUBIN,TOTAL 0.4 mg/dL (0.2-1.3); BLOOD UREA NITROGEN 28 mg/dL (7-20); CARBON DIOXIDE 26 mmol/L (22-30); CHLORIDE 106 mmol/L (98-107); GLUCOSE 245 mg/dL (75-110); POTASSIUM 4.7 mmol/L (3.6-5.0); SODIUM 139.8 mmol/L (137-145); TOTAL PROTEIN 6.5 g/dL (6.3-8.2)
--- NOTE | 2018-08-23 04:29 | RADIOLOGY REPORT (SQ) ---
CT head without contrast on 08/23/2018 at 3:59 AM CLINICAL INDICATION: Dizziness TECHNIQUE: Multiple axial images are obtained throughout the head without the administration of contrast. This exam was performed according to our departmental dose-optimization program, which includes automated exposure control, adjustment of the mA and/or kV according to patient size and/or use of iterative reconstruction technique. Total DLP is 1083.99 mGy*cm. COMPARISON: None FINDINGS: There is mild generalized cerebral atrophy. There is no hydrocephalus. There is no CT evidence of acute infarct. There is no hemorrhage. There are no abnormal extra-axial fluid collections. There is no mass, mass effect or midline shift. No bony abnormality is noted. IMPRESSION: Atrophy with no acute intracranial abnormality.
[2018-08-23 08:04] VITALS: BP 158/71
--- NOTE | 2018-08-23 13:39 | EKG REPORT ---
SEVERITY:- ABNORMAL ECG - SINUS RHYTHM FIRST DEGREE AV BLOCK BORDERLINE T ABNORMALITIES, LATERAL LEADS : Confirmed by: Анна De La Rosa MD 23-Aug-2018 13:38:38
== END 2018-08-23 08:06 | disposition home or self-care (01) ==
LOC: ER 01:23
DX: R42 Dizziness and giddiness (principal); R11.0 Nausea; I48.91 Unspecified atrial fibrillation; I50.9 Heart failure, unspecified; I25.10 Atherosclerotic heart disease of native coronary artery without angina pectoris; I11.0 Hypertensive heart disease with heart failure; E11.9 Type 2 diabetes mellitus without complications; Z88.0 Allergy status to penicillin; Z88.3 Allergy status to other anti-infective agents
CPT/HCPCS: 93005; 99285; 96360; 36415; 85025; 80053; 81001; 84484; 83880; 71045; 70450; 93010; J7120

== ENCOUNTER 2018-08-31 07:32 | Emergency (ER) | payer MEDICARE, MEDICAID ==
--- NOTE | 2018-08-31 08:06 | ER Document Report ---
ED Respiratory Problem - General Chief Complaint: Shortness Of Breath Stated Complaint: SHORT OF BREATH Time Seen by Provider: 08/31/18 07:57 Notes: 83-year-old male who complains of shortness of breath that started last night. Patient has a history of congestive heart failure. He feels as if his fluid is building back up. The patient stated he was having dizzy spells several weeks ago and went to the doctor and he took him off some of his diuretics thinking they had dehydrated him. Unfortunately he feels as if the fluid is building up again he complains of swelling in his legs and his lower abdomen. He denies any chest pain but does have difficulty breathing states he cannot lay flat. Any kind of exertion he gets very short of breath. He denies any hemoptysis gland swelling or night sweats. Denies fever chills or sore throat. Denies any black bloody or tarry stools. TRAVEL OUTSIDE OF THE [place] IN LAST 30 DAYS: No - Related Data Allergies/Adverse Reactions: amoxicillin Allergy (Verified 08/31/18 07:40) atorvastatin [From Lipitor] Allergy (Verified 08/31/18 07:40) divalproex sodium [From Depakote] Allergy (Verified 08/31/18 07:40) levofloxacin [From Levaquin] Allergy (Verified 08/31/18 07:40) liraglutide [From Victoza] Allergy (Verified 08/31/18 07:40) metformin [From Janumet] Allergy (Verified 08/31/18 07:40) ranolazine [From Ranexa] Allergy (Verified 08/31/18 07:41) simvastatin [From Zocor] Allergy (Verified 08/31/18 07:40) sitagliptin [From Janumet] Adverse Reaction (Verified 08/31/18 07:40) kidney issues Past Medical History - Social History Smoking Status: Unknown if Ever Smoked Family History: CAD - Mother at about 65, CVA - Father in his 50s, Hypertension - Past Medical History Cardiac Medical History: Reports: Hx Atrial Fibrillation, Hx Congestive Heart Failure, Hx Coronary Artery Disease, Hx Hypertension Endocrine Medical History: Reports: Hx Diabetes Mellitus Type 2 Renal/ Medical History: Denies: Hx Peritoneal Dialysis GI Medical History: Reports: Hx Gastroesophageal Reflux Disease Psychiatric Medical History: Denies: Hx Dementia, Hx Depression Past Surgical History: Reports: Hx Cardiac Catheterization, Hx Coronary Stent - Immunizations Hx Pneumococcal Vaccination: 05/30/17 Review of Systems - Review of Systems Constitutional: denies: Chills, Fever Cardiovascular: Orthopnea, Dyspnea, Dizziness, Edema. denies: Chest pain Respiratory: Short of breath -: Yes All other systems reviewed and negative Physical Exam - Vital signs Vitals: Temp Pulse Resp BP Pulse Ox 98.2 F 65 24 H 185/66 H 95 08/31/18 07:38 08/31/18 07:38 08/31/18 07:38 08/31/18 07:38 08/31/18 07:38 - Notes Notes: GENERAL_APPEARANCE: well_nourished, alert, cooperative, no_acute_distress, no_obvious_discomfort. VITALS: reviewed, see vital signs table. HEAD: no_swelling\tenderness on the head. EYES: PERRL, EOMI, conjunctiva_clear. NOSE: no_nasal_discharge. MOUTH: (-)decreased moisture. THROAT: no_tonsilar_inflammation, no_airway_obstruction. no_lymphadenopathy NECK: supple, no_neck_tenderness, (-)thyromegaly. BACK: no_back_tenderness. CHEST_WALL: no_chest_tenderness. LUNGS: no_wheezing, bibasilar rales, no_rhonchi, (-)accessory muscle use, good air exchange bilateral. HEART: normal_rate, normal_rhythm, normal_S1, normal_S2, (-)S3, (-)S4, no _murmur, no_rub. ABDOMEN: normal_BS, soft, no_abd_tenderness, (-)guarding, (-)rebound, no_organomegaly, no_abd_masses. EXTREMITIES: good pulses in all_extremities, no_swelling\tenderness in the extr emities, 2+ pitting_edema to lower abdomen. SKIN: warm, dry, good_color, no_rash. MENTAL_STATUS: speech_clear, oriented_X_3, normal_affect, responds_appropriately to questions. Course - Re-evaluation Re-evalutation: 08/31/18 08:06 83-year-old male presents with appears to be mild congestive heart failure exacerbation. The patient has had his diuretic regimen modified for he was having dizzy spells. He likely has reaccumulated fluid. We will check his laboratory values and give him additional diuretics. 08/31/18 12:47 Lasix here he has some mild congestive changes he has no hypoxemia. He is urinated several urinals full of urine and seems to be feeling tremendously better. I spoke with him about doubling his Lasix for the next several days in the morning. He is okay with this plan he feels safe going home. I spoke with him at length. - Vital Signs Vital signs: Temp Pulse Resp BP Pulse Ox 98.2 F 65 18 109/53 L 96 08/31/18 07:38 08/31/18 07:38 08/31/18 10:01 08/31/18 10:01 08/31/18 10:01 - Laboratory Result Diagrams: 08/31/18 08:25 08/31/18 08:25 Laboratory results interpreted by me: 08/31/18 08/31/18 08/31/18 08:25 08:25 08:25 RBC 4.10 L MCV 98 H RDW 14.3 H BUN 24 H Creatinine 1.60 H Est GFR ( Amer) 50 L Est GFR (Non-Af Amer) 42 L Glucose 276 H NT-Pro-B Natriuret Pep 458 H Valproic Acid < 10.0 L - Diagnostic Test Radiology reviewed: Image reviewed Radiology results interpreted by me: 08/31/18 12:46 Chest X-Ray 08/31/18 08:03 IMPRESSION: No significant change in minimal diffuse interstitial pulmonary opacity and small right pleural effusion. 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 Referrals: LINNEA BLACK PA [Primary Care Provider] - Follow up as needed
[2018-08-31 08:43] LABS: ABSOLUTE BASOPHILS # (AUTO) 0.1 10^3/uL (0.0-0.2); ABSOLUTE EOSINOPHILS # (AUTO) 0.1 10^3/uL (0.0-0.6); ABSOLUTE LYMPHOCYTES (AUTO) 1.3 10^3/uL (0.5-4.7); ABSOLUTE MONOCYTES (AUTO) 0.8 10^3/uL (0.1-1.4); BASOPHILS % (AUTO) 0.6 % (0-2); EOSINOPHILS % (AUTO) 1.1 % (0-6); HEMATOCRIT 40.1 % (37.9-51.0); HEMOGLOBIN 13.6 g/dL (13.5-17.0); LYMPHOCYTES % (AUTO) 14.4 % (13-45); MEAN CORPUSCULAR HEMOGLOBIN 33.2 pg (27.0-33.4); MEAN CORPUSCULAR VOLUME 98 fl (80-97); MONOCYTES % (AUTO) 8.5 % (3-13); PLATELET COUNT 215 10^3/uL (150-450); RED CELL DISTRIBUTION WIDTH 14.3 % (11.5-14.0); SEGMENTED NEUTROPHILS % (AUTO) 75.4 % (42-78); TOTAL CELLS COUNTED % (AUTO) 100 %; WHITE BLOOD COUNT 9.3 10^3/uL (4.0-10.5)
[2018-08-31 09:00] LABS: ALANINE AMINOTRANSFERASE 60 U/L (21-72); ALBUMIN 4.4 g/dL (3.5-5.0); ALKALINE PHOSPHATASE 78 U/L (38-126); ANION GAP 10 (5-19); ASPARTATE AMINO TRANSFERASE 39 U/L (17-59); BILIRUBIN,DIRECT 0.1 mg/dL (0.0-0.4); BILIRUBIN,TOTAL 0.3 mg/dL (0.2-1.3); BLOOD UREA NITROGEN 24 mg/dL (7-20); CALCIUM 9.2 mg/dL (8.4-10.2); CARBON DIOXIDE 27 mmol/L (22-30); CHLORIDE 102 mmol/L (98-107); CREATINE KINASE 93 U/L (55-170); GLUCOSE 276 mg/dL (75-110); POTASSIUM 4.6 mmol/L (3.6-5.0); SODIUM 139.1 mmol/L (137-145); TOTAL PROTEIN 6.7 g/dL (6.3-8.2)
[2018-08-31 09:15] LABS: TROPONIN I 0.017 ng/mL
--- NOTE | 2018-08-31 09:31 | RADIOLOGY REPORT (SQ) ---
EXAM DESCRIPTION: CHEST 2 VIEWS COMPLETED DATE/TIME: 08/31/2018 9:07 am REASON FOR STUDY: sob COMPARISON: 08/23/2018 EXAM PARAMETERS: NUMBER OF VIEWS: two views TECHNIQUE: Digital Frontal and Lateral radiographic views of the chest acquired. RADIATION DOSE: NA LIMITATIONS: none FINDINGS: LUNGS AND PLEURA: No significant change in minimal diffuse interstitial pulmonary opacity and small right pleural effusion. MEDIASTINUM AND HILAR STRUCTURES: No masses or contour abnormalities. HEART AND VASCULAR STRUCTURES: Heart normal size. No evidence for failure. BONES: No acute findings. HARDWARE: None in the chest. OTHER: No other significant finding. IMPRESSION: No significant change in minimal diffuse interstitial pulmonary opacity and small right pleural effusion. TECHNICAL DOCUMENTATION: JOB ID: [id number] [employer]- All Rights Reserved Reading location - IP/workstation name: [email or web address]
[2018-08-31] MEDS ORDERED: FUROSEMIDE INJ/PF 40 MG/4 ML SDV IV ONE (10:38)
--- NOTE | 2018-08-31 12:16 | EKG REPORT ---
SEVERITY:- ABNORMAL ECG - SINUS RHYTHM FIRST DEGREE AV BLOCK : Confirmed by: Kevin Doherty MD 31-Aug-2018 12:15:50
[2018-08-31 13:10] VITALS: BP 142/74
== END 2018-08-31 13:13 | disposition home or self-care (01) ==
LOC: ER 07:32
DX: I11.0 Hypertensive heart disease with heart failure (principal); I50.32 Chronic diastolic (congestive) heart failure; I25.10 Atherosclerotic heart disease of native coronary artery without angina pectoris; R42 Dizziness and giddiness; E11.9 Type 2 diabetes mellitus without complications; Z88.0 Allergy status to penicillin; Z88.8 Allergy status to other drugs, medicaments and biological substances; Z88.1 Allergy status to other antibiotic agents; Z82.49 Family history of ischemic heart disease and other diseases of the circulatory system; Z95.5 Presence of coronary angioplasty implant and graft
CPT/HCPCS: 93005; 99285; 96374; 36415; 82550; 83735; 85025; 80053; 84484; 80164; 83880; 71046; 93010; J1940

== ENCOUNTER 2018-11-16 11:17 | Emergency (ER) | payer MEDICARE, MEDICAID ==
[2018-11-16] MEDS ORDERED: ONDANSETRON 4 MG TAB.RAPDIS PO ONE (15:01)
[2018-11-16] MEDS ORDERED: MECLIZINE HCL 25 MG TABLET PO ONE (15:01)
[2018-11-16 15:14] LABS: ABSOLUTE BASOPHILS # (AUTO) 0.1 10^3/uL (0.0-0.2); ABSOLUTE EOSINOPHILS # (AUTO) 0.2 10^3/uL (0.0-0.6); ABSOLUTE LYMPHOCYTES (AUTO) 2.6 10^3/uL (0.5-4.7); ABSOLUTE MONOCYTES (AUTO) 1.3 10^3/uL (0.1-1.4); ABSOLUTE NEUT (AUTO) 6.2 10^3/uL (1.7-8.2); BASOPHILS % (AUTO) 0.6 % (0-2); EOSINOPHILS % (AUTO) 2.1 % (0-6); HEMATOCRIT 40.2 % (37.9-51.0); HEMOGLOBIN 13.4 g/dL (13.5-17.0); LYMPHOCYTES % (AUTO) 24.8 % (13-45); MEAN CORPUSCULAR HEMOGLOBIN 32.3 pg (27.0-33.4); MEAN CORPUSCULAR HGB CONC 33.4 g/dL (32.0-36.0); MEAN CORPUSCULAR VOLUME 97 fl (80-97); MONOCYTES % (AUTO) 12.6 % (3-13); PLATELET COUNT 257 10^3/uL (150-450); RED BLOOD COUNT 4.16 10^6/uL (4.35-5.55); RED CELL DISTRIBUTION WIDTH 14.3 % (11.5-14.0); SEGMENTED NEUTROPHILS % (AUTO) 59.9 % (42-78); TOTAL CELLS COUNTED % (AUTO) 100 %; WHITE BLOOD COUNT 10.4 10^3/uL (4.0-10.5)
[2018-11-16 15:28] LABS: ALANINE AMINOTRANSFERASE 86 U/L (21-72); ALBUMIN 3.9 g/dL (3.5-5.0); ALKALINE PHOSPHATASE 71 U/L (38-126); ANION GAP 10 (5-19); ASPARTATE AMINO TRANSFERASE 56 U/L (17-59); BILIRUBIN,DIRECT 0.3 mg/dL (0.0-0.4); BILIRUBIN,TOTAL 0.5 mg/dL (0.2-1.3); BLOOD UREA NITROGEN 21 mg/dL (7-20); CALCIUM 9.4 mg/dL (8.4-10.2); CARBON DIOXIDE 28 mmol/L (22-30); CHLORIDE 102 mmol/L (98-107); GLUCOSE 117 mg/dL (75-110); POTASSIUM 3.9 mmol/L (3.6-5.0); SODIUM 140.1 mmol/L (137-145)
--- NOTE | 2018-11-16 15:29 | RADIOLOGY REPORT (SQ) ---
EXAM DESCRIPTION: CT HEAD WITHOUT COMPLETED DATE/TIME: 11/16/2018 3:23 pm REASON FOR STUDY: vertigo COMPARISON: 08/23/2018 TECHNIQUE: Axial images acquired through the brain without intravenous contrast. Images reviewed wi th bone, brain and subdural windows. Additional sagittal and coronal reconstructions were generated. Images stored on PACS. All CT scanners at this facility use dose modulation, iterative reconstruction, and/or weight based d osing when appropriate to reduce radiation dose to as low as reasonably achievable (ALARA). [facility]: Dose Right [facility]: CareDose [facility]: Dose Right [facility]: Teradose 4D [facility]: [employer] RADIATION DOSE: CT Rad equipment meets quality standard of care and radiation dose reduction techniq ues were employed. CTDIvol: 53.2 mGy. DLP: 1070 mGy-cm. mGy. LIMITATIONS: None. FINDINGS: VENTRICLES: Normal size and contour. CEREBRUM: No masses. No hemorrhage. No midline shift. No evidence for acute infarction. Normal gra y/white matter differentiation. No areas of low density in the white matter. CEREBELLUM: No masses. No hemorrhage. No alteration of density. No evidence for acute infarction. EXTRAAXIAL SPACES: No fluid collections. No masses. ORBITS AND GLOBE: No intra- or extraconal masses. Normal contour of globe without masses. CALVARIUM: No fracture. PARANASAL SINUSES: No fluid or mucosal thickening. SOFT TISSUES: No mass or hematoma. OTHER: No other significant finding. IMPRESSION: No acute intracranial pathology. EVIDENCE OF ACUTE STROKE: NO. COMMENT: Quality ID # [id number]: Final reports with documentation of one or more dose reduction techniques (e.g., Automated exposure control, adjustment of the mA and/or kV according to patient size, use of iterative reconstruction technique) TECHNICAL DOCUMENTATION: JOB ID: [id number] [employer]- All Rights Reserved Reading location - IP/workstation name: [email or web address]
[2018-11-16 15:32] LABS: APPEARANCE,URINE CLEAR; BILIRUBIN,URINE NEGATIVE (NEGATIVE); COLOR,URINE YELLOW; GLUCOSE, URINE NEGATIVE (NEGATIVE); KETONES,URINE NEGATIVE (NEGATIVE); LEUKOCYTE ESTERASE,URINE NEGATIVE (NEGATIVE); NITRITE,URINE NEGATIVE (NEGATIVE); PROTEIN,URINE NEGATIVE (NEGATIVE); URINE SPECIFIC GRAVITY 1.012
[2018-11-16 15:44] LABS: FREE T4 (FREE THYROXINE) 1.16 ng/dL (0.78-2.19)
[2018-11-16 15:57] LABS: THYROID STIMULATING HORMONE 9.64 uIU/mL (0.47-4.68)
--- NOTE | 2018-11-16 17:30 | ER Document Report ---
ED General - General Chief Complaint: Shortness Of Breath Stated Complaint: DIZZINESS Time Seen by Provider: 11/16/18 14:39 Primary Care Provider: LINNEA BLACK PA [Primary Care Provider] - Follow up as needed Mode of Arrival: Medic Information source: Patient TRAVEL OUTSIDE OF THE [place] IN LAST 30 DAYS: No - HPI Notes: Patient is a 83-year-old male history of Mnire's disease, atrial fibrillation, obesity, hypertension, coronary artery disease, chronic kidney disease, CHF and cardiac stent states that he has had previous episodes of dizziness in the past but today when he went to get up he felt dizzy and noticed his vision was jumping and felt like the room was spinning. After vomiting it improved somewhat. The patient states that today was the first day he is taken a Synthroid dose, and questions if this dizziness was related to the Synthroid. The patient denies any chest pain or palpitation or fever or chills or constipation or diarrhea. No abdominal pain. No numbness or paresthesia. - Related Data Allergies/Adverse Reactions: amoxicillin Allergy (Verified 08/31/18 07:40) atorvastatin [From Lipitor] Allergy (Verified 08/31/18 07:40) divalproex sodium [From Depakote] Allergy (Verified 08/31/18 07:40) levofloxacin [From Levaquin] Allergy (Verified 08/31/18 07:40) liraglutide [From Victoza] Allergy (Verified 08/31/18 07:40) metformin [From Janumet] Allergy (Verified 08/31/18 07:40) ranolazine [From Ranexa] Allergy (Verified 08/31/18 07:41) simvastatin [From Zocor] Allergy (Verified 08/31/18 07:40) sitagliptin [From Janumet] Adverse Reaction (Verified 08/31/18 07:40) kidney issues Past Medical History - General Information source: Patient - Social History Smoking Status: Current Every Day Smoker Frequency of alcohol use: None Drug Abuse: None Lives with: Family Family History: CAD - Mother at about 65, CVA - Father in his 50s, Hypertension Patient has suicidal ideation: No Patient has homicidal ideation: No - Past Medical History Cardiac Medical History: Reports: Hx Atrial Fibrillation, Hx Congestive Heart Failure, Hx Coronary Artery Disease, Hx Hypertension Endocrine Medical History: Reports: Hx Diabetes Mellitus Type 2 Renal/ Medical History: Denies: Hx Peritoneal Dialysis GI Medical History: Reports: Hx Gastroesophageal Reflux Disease Psychiatric Medical History: Denies: Hx Dementia, Hx Depression Past Surgical History: Reports: Hx Cardiac Catheterization, Hx Coronary Stent - Immunizations Hx Pneumococcal Vaccination: 05/30/17 Review of Systems - Review of Systems -: Yes All other systems reviewed and negative Physical Exam - Vital signs Vitals: Temp Pulse Resp BP Pulse Ox 98.0 F 67 24 H 162/63 H 94 11/16/18 11:38 11/16/18 11:38 11/16/18 11:38 11/16/18 11:38 11/16/18 11:38 - Notes Notes: PHYSICAL EXAMINATION: GENERAL: Well-appearing, well-nourished and in no acute distress. HEAD: Atraumatic, normocephalic. EYES: Pupils equal round and reactive to light, extraocular movements intact, sclera anicteric, conjunctiva are normal. ENT: Nares patent, oropharynx clear without exudates. Moist mucous membranes. Minimal fluid behind left greater than right TM. The patient has slightly diminished hearing on the left, but he states this is been chronic for several years. NECK: Normal range of motion, supple without lymphadenopathy. No obvious ca rotid bruits. LUNGS: Breath sounds clear to auscultation bilaterally and equal. No wheezes rales or rhonchi. HEART: Regular rate and rhythm with 1/6 systolic ejection murmur best auscultated over the apex. ABDOMEN: Soft, nontender, nondistended abdomen. No guarding, no rebound. No masses appreciated. Musculoskeletal: Normal range of motion. No cyanosis. 3+ lower extremity edema which patient states is chronic. NEUROLOGICAL: Cranial nerves grossly intact. Normal speech, normal gait. Normal sensory, motor exams. No obvious cerebellar ataxia noted. The patient has nystagmus on lateral gaze that is fatigable and goes away. He denies any dizziness or nausea associated with testing however, stating that he feels much better after vomiting. PSYCH: Normal mood, normal affect. SKIN: Warm, Dry, normal turgor, no rashes or lesions noted. Course - Re-evaluation Re-evalutation: 11/16/18 17:28 Patient was given Zofran and meclizine and had complete resolution of symptoms. The patient was ambulatory without complaint denied further dizziness or vertigo sensation. No evidence for anemia. Patient's renal insufficiency is chronic and unchanged. Patient was watched on a cardiac/vascular sonographer without ectopy or other abnormality. Head CT is negative for acute change. No evidence for CVA. No obvious evidence for vascular insufficiency. No evidence for UTI. Findings fit with a peripheral vertigo with a questionable history of the same and patient does have a history of Mnire's disease. 11/16/18 17:29 - Vital Signs Vital signs: Temp Pulse Resp BP Pulse Ox 98.0 F 67 15 156/69 H 96 11/16/18 11:38 11/16/18 11:38 11/16/18 16:37 11/16/18 16:45 11/16/18 16:37 - Laboratory Result Diagrams: 11/16/18 11:35 11/16/18 11:35 Laboratory results interpreted by me: 11/16/18 11/16/18 11/16/18 11:35 11:35 11:35 RBC 4.16 L Hgb 13.4 L RDW 14.3 H BUN 21 H Creatinine 1.73 H Est GFR ( Amer) 46 L Est GFR (Non-Af Amer) 38 L Glucose 117 H ALT 86 H TSH 9.64 H Urine Urobilinogen 11/16/18 15:05 RBC Hgb RDW BUN Creatinine Est GFR ( Amer) Est GFR (Non-Af Amer) Glucose ALT TSH Urine Urobilinogen 2.0 H - EKG Interpretation by Me EKG shows normal: Sinus rhythm Additional EKG results interpreted by me: 11/16/18 17:28 EKG is interpreted by me showed normal sinus rhythm heart rate of 66. There is no gross evidence for acute IN or ischemia noted. There is a borderline first- degree AV block appreciated. There was no change from previous EKG reviewed from 08/31/2018. 11/16/18 17:29 Discharge - Discharge Clinical Impression: Vertigo Meniere disease Qualifiers: Laterality: left Qualified Code(s): H81.02 - Meniere's disease, left ear Vomiting Qualifiers: Vomiting type: unspecified Vomiting Intractability: non-intractable Nausea presence: with nausea Qualified Code(s): R11.2 - Nausea with vomiting, unspecified Condition: Stable Disposition: HOME, SELF-CARE Instructions: Vertigo ([facility]), Vomiting ([facility]) Additional Instructions: Stand up slowly. Take Zofran as needed every 8 hours 1 tablet for nausea and vomiting. Take meclizine 1 tablet every 6 hours as needed for vertigo and dizziness. Prescriptions: Ondansetron [Zofran Odt 4 mg Tablet] 1 tab PO Q8HP PRN #10 tab.rapdis PRN Reason: For Nausea/Vomiting Meclizine HCl [Antivert 25 mg Tablet] 25 mg PO TIDP PRN #20 tablet PRN Reason: Referrals: LINNEA BLACK PA [Primary Care Provider] - Follow up as needed
[2018-11-16 18:23] VITALS: BP 163/79
--- NOTE | 2018-11-16 21:00 | EKG REPORT ---
SEVERITY:- BORDERLINE ECG - SINUS RHYTHM BORDERLINE T ABNORMALITIES, INFERIOR LEADS BORDERLINE PROLONGED QT INTERVAL : Confirmed by: Анна De La Rosa MD 16-Nov-2018 20:59:48
== END 2018-11-16 18:22 | disposition home or self-care (01) ==
LOC: ER 11:17
DX: H81.02 Meniere's disease, left ear (principal); I12.9 Hypertensive chronic kidney disease with stage 1 through stage 4 chronic kidney disease, or unspecified chronic kidney disease; E11.22 Type 2 diabetes mellitus with diabetic chronic kidney disease; N18.9 Chronic kidney disease, unspecified; R42 Dizziness and giddiness; R11.2 Nausea with vomiting, unspecified; H53.8 Other visual disturbances; I25.10 Atherosclerotic heart disease of native coronary artery without angina pectoris; F17.200 Nicotine dependence, unspecified, uncomplicated; Z95.5 Presence of coronary angioplasty implant and graft; Z88.0 Allergy status to penicillin; Z88.8 Allergy status to other drugs, medicaments and biological substances
CPT/HCPCS: 93005; 99284; 36415; 84439; 83735; 84443; 85025; 80053; 81001; 70450; 93010; A9270 ×2; S0119

== ENCOUNTER 2019-04-25 17:20 | Emergency (ER) | payer MEDICARE, MEDICAID ==
--- NOTE | 2019-04-25 17:54 | ER Document Report ---
ED GI/ - General Chief Complaint: Urinary Frequency Stated Complaint: URINATION PROBLEMS Primary Care Provider: LINNEA BLACK PA [Primary Care Provider] - Follow up as needed TRAVEL OUTSIDE OF THE [place] IN LAST 30 DAYS: No - HPI Patient complains to provider of: Dysuria, Urinary retention. No: Abdominal pain, Diarrhea, Flank pain, Groin pain, Hematuria, Testicular pain Onset: This morning Timing/Duration: Sudden Quality of pain: Burning Severity at maximum: Mild Severity in ED: Mild Pain Level: 1 Context: denies: Bad food, Lifting, Out of the country travel, , Recent trauma, Other Location: No: Chest pain, Epigastric, LUQ, LLQ, RUQ, RLQ, Left flank, Right flank, Low back, Suprapubic, Pelvis, Left testicle, Right testicle, Rectal, Other Sexual history: denies: Active, Inactive, New partner, Multiple partners, Unprotected intercourse, Rectal penetration, STD exposure, Condoms Associated symptoms: Urinary hesitancy, Urinary frequency, Urinary retention, Urinary urgency. denies: None, Blood in emesis, Blood in stool, Chest pain, Chills, Coffee ground emesis, Constipation, Diarrhea, Dizzy, Dysuria, Erection problem, Fever, Foreskin problem, Hard stool, Hematuria, Hematospermia, Hurts to breath, Inguinal mass, Lightheaded, Loss of appetite, Nausea, Painful intercourse, Penile discharge, Radiates to back, Radiates to chest, Radiates to testicles, Radiates to shoulder, Shortness of breath, Sweaty, Syncope, Vomiting, Other Exacerbated by: Denies Relieved by: Denies - Related Data Allergies/Adverse Reactions: amoxicillin Allergy (Verified 08/31/18 07:40) atorvastatin [From Lipitor] Allergy (Verified 08/31/18 07:40) divalproex sodium [From Depakote] Allergy (Verified 08/31/18 07:40) levofloxacin [From Levaquin] Allergy (Verified 08/31/18 07:40) liraglutide [From Victoza] Allergy (Verified 08/31/18 07:40) metformin [From Janumet] Allergy (Verified 08/31/18 07:40) ranolazine [From Ranexa] Allergy (Verified 08/31/18 07:41) simvastatin [From Zocor] Allergy (Verified 08/31/18 07:40) sitagliptin [From [facility]] Adverse Reaction (Verified 08/31/18 07:40) kidney issues Past Medical History - Social History Smoking Status: Unknown if Ever Smoked Family History: CAD - Mother at about 65, CVA - Father in his 50s, Hypertension Patient has suicidal ideation: No Patient has homicidal ideation: No - Past Medical History Cardiac Medical History: Reports: Hx Atrial Fibrillation, Hx Congestive Heart Failure, Hx Coronary Artery Disease, Hx Hypertension Endocrine Medical History: Reports: Hx Diabetes Mellitus Type 2 Renal/ Medical History: Denies: Hx Peritoneal Dialysis GI Medical History: Reports: Hx Gastroesophageal Reflux Disease Psychiatric Medical History: Denies: Hx Dementia, Hx Depression Past Surgical History: Reports: Hx Cardiac Catheterization, Hx Coronary Stent - Immunizations Hx Pneumococcal Vaccination: 05/30/17 Review of Systems - Review of Systems Constitutional: Chills. denies: No symptoms reported, See HPI, Diaphoresis, Fever, Malaise, Weakness, Other, Weight gain, Weight loss, Recent illness EENT: denies: No symptoms reported, See HPI, Eye pain, Eye discharge, Blurred vision, Tearing, Double vision, Ear pain, Ear discharge, Nose pain, Nose congestion, Nose discharge, Sinus pressure, Sinus discharge, Throat pain, Difficulty swallowing, Throat swelling, Mouth pain, Mouth swelling, Dental problem, Vertigo, Other Cardiovascular: denies: No symptoms reported, See HPI, Chest pain, Palpitations, Heart racing, Orthopnea, Dyspnea, Syncope, Dizziness, Lightheaded, Edema, Other, Paroxysmal Nocturnal Dysp Respiratory: denies: No symptoms reported, See HPI, Cough, Hurts to breathe, Hemoptysis, Short of breath, Sputum, Stridor, Wheezing, Other Gastrointestinal: denies: No symptoms reported, See HPI, Abdomen distended, Abdominal pain, Diarrhea, Nausea, Vomiting, Constipation, Blood streaked bowels, Poor appetite, Poor fluid intake, Blood in vomit, Black stools, Rectal bleeding, Last bowel movement, Fecal incontinence, Other Genitourinary: Burning, Dysuria, Frequency, Urgency. denies: Discharge, Flank pain, Hematuria, Incontinence Male Genitourinary: No symptoms reported Musculoskeletal: No symptoms reported -: Yes All other systems reviewed and negative Physical Exam - Vital signs Vitals: Temp Pulse Resp BP Pulse Ox 98.2 F 80 16 142/86 H 98 09/05/19 17:29 04/25/19 17:29 04/25/19 17:29 04/25/19 17:29 04/25/19 17:29 Notes: PHYSICAL EXAMINATION: GENERAL: Well-appearing, well-nourished and in no acute distress. HEAD: Atraumatic, normocephalic. EYES: Pupils equal round and reactive to light, extraocular movements intact, sclera anicteric, conjunctiva are normal. ENT: nares patent, oropharynx clear without exudates. Moist mucous membranes. NECK: Normal range of motion, supple without lymphadenopathy LUNGS: Breath sounds clear to auscultation bilaterally and equal. No wheezes rales or rhonchi. HEART: Regular rate and rhythm without murmurs ABDOMEN: Soft, nontender, normoactive bowel sounds. No guarding, no rebound. No masses appreciated. EXTREMITIES: Normal range of motion, no pitting or edema. No cyanosis. NEUROLOGICAL: No focal neurological deficits. Moves all extremities spontaneously and on command. PSYCH: Normal mood, normal affect. SKIN: Warm, Dry, normal turgor, no rashes or lesions noted. Course - Vital Signs Vital signs: Temp Pulse Resp BP Pulse Ox 98.2 F 80 16 142/86 H 98 04/25/19 17:29 04/25/19 17:29 04/25/19 17:29 04/25/19 17:29 04/25/19 17:29 - Transfer of Care Notes: 04/25/19 18:12 Note UA dip was negative. However patient claims that this is very similar to previous urinary tract infections. I feel it is important to treat the spasms which I will give him Pyridium but I will give him a short course of Bactrim. And have him follow-up with his doctor with referral to a urologist. Discharge - Discharge Clinical Impression: Urinary tract infection symptoms, Bladder spasms Condition: Good Disposition: HOME, SELF-CARE Instructions: Urinary Tract Infection ([facility]) Additional Instructions: Follow-up with your regular doctor for referral to urologist as discussed. Prescriptions: Sulfamethoxazole/Trimethoprim [Bactrim Ds Tablet] 1 tab PO BID #20 tablet Phenazopyridine HCl [Pyridium 200 mg Tablet] 200 mg PO TID #6 tablet Referrals: LINNEA BLACK PA [Primary Care Provider] - Follow up as needed
[2019-04-25 18:08] LABS: APPEARANCE,URINE CLEAR; BILIRUBIN,URINE NEGATIVE (NEGATIVE); COLOR,URINE STRAW; GLUCOSE, URINE NEGATIVE (NEGATIVE); KETONES,URINE NEGATIVE (NEGATIVE); LEUKOCYTE ESTERASE,URINE NEGATIVE (NEGATIVE); NITRITE,URINE NEGATIVE (NEGATIVE); PROTEIN,URINE NEGATIVE (NEGATIVE); URINE SPECIFIC GRAVITY 1.004; UROBILINOGEN,URINE NEGATIVE mg/dL (<2.0)
[2019-04-25] MEDS ORDERED: SULFAMETHOXAZOLE/TRIMETHOPRIM 800-160 MG TABLET PO ONE (18:16)
[2019-04-25] MEDS ORDERED: PHENAZOPYRIDINE HCL 200 MG TABLET PO ONE (18:17)
[2019-04-25 18:50] VITALS: BP 146/82
== END 2019-04-25 18:50 | disposition home or self-care (01) ==
LOC: ER 17:20
DX: N32.89 Other specified disorders of bladder (principal); R35.0 Frequency of micturition; R30.0 Dysuria; R33.9 Retention of urine, unspecified; R39.11 Hesitancy of micturition; I50.9 Heart failure, unspecified; I25.10 Atherosclerotic heart disease of native coronary artery without angina pectoris; I11.0 Hypertensive heart disease with heart failure; E11.9 Type 2 diabetes mellitus without complications
CPT/HCPCS: 99283; 81001; A9270 ×2; J3490